=== PATIENT | female | born 1945 | race Caucasian/White ===

== ENCOUNTER → 2018-03-12 | Outpatient (CLI) | payer MEDICARE, OTHER ==
[~2018-03-12] MED LIST: ALPR0.254 PO; AMLO10TA6 PO; BUPR150T6 PO; CALC500T93 PO; CARV6.252 PO; CHOL400T10 PO; CHOL5000 PO; FENO160T PO; GLUC500T11 PO; IRBE300T16 PO; LEVO50TA5 PO; LIOT5TAB3 PO; MAGN100T3 PO; MULT1TAB60 PO; POTA20TA14 PO; PRED5TAB PO; SERT100T5 PO; ZINC30CA PO
[2018-03-12 12:40] LABS: BASOPHILS # (AUTO) 0.02 x10^3/uL (0-0.1); BASOPHILS % (AUTO) 0 % (0-1); EOSINOPHILS # (AUTO) 0.11 x10^3/uL (0-0.4); EOSINOPHILS % (AUTO) 2 % (1-7); LYMPHOCYTES # (AUTO) 0.75 x10^3/uL (1-3.4); LYMPHOCYTES % (AUTO) 10 % (22-44); MD NO; MEAN CORPUSCULAR HEMOGLOBIN 31.1 pg (27.0-34.8); MEAN CORPUSCULAR HGB CONC 34.4 g/dL (32.4-35.8); MEAN CORPUSCULAR VOLUME 90.5 fL (80-100); MEAN PLATELET VOLUME 8.7 fL (7.4-10.4); MONOCYTES # (AUTO) 0.42 x10^3/uL (0.2-0.8); MONOCYTES % (AUTO) 6 % (2-9); NEUTROPHILS # (AUTO) 6.24 x10^3/uL (1.8-6.8); NEUTROPHILS % (AUTO) 83 % (42-75); PLATELET COUNT 175 x10^3/uL (130-400); RED BLOOD COUNT 4.41 x10^6/uL (3.82-5.3); RED CELL DISTRIBUTION WIDTH 13.5 % (9.6-15.2)
[2018-03-12 12:46] LABS: ANION GAP 5 mmol/L (5-15); CHLORIDE 108 mmol/L (98-107)
[2018-03-12 12:50] LABS: ALANINE AMINOTRANSFERASE 29 U/L (12-78); ALKALINE PHOSPHATASE 36 U/L (45-117); BILIRUBIN,TOTAL 0.9 mg/dL (0.2-1.0); CREATININE 1.59 mg/dL (0.55-1.02); TOTAL PROTEIN 6.9 g/dL (6.4-8.2)
== END | disposition home or self-care (01) ==
LOC: STAR 11:29
PROVIDERS: ATTEND Surgery
DX: Z01.818 Encounter for other preprocedural examination (principal); I51.7 Cardiomegaly
CPT/HCPCS: 36415; 80053; 85025; 93005

== ENCOUNTER 2018-03-18 10:10 | Inpatient (IN) | payer MEDICARE, OTHER ==
[~2018-03-18] VITALS: Ht 162.6 cm; Wt 86.7 kg
[~2018-03-18 10:10] MED LIST changes: +BUPIVACAINE/PF-EPI 0.5% 1:200K ONE
[2018-03-18] MEDS ORDERED: LACTATED RINGERS 1,000 ML IV SCH (10:54)
[2018-03-18] MEDS ORDERED: GABAPENTIN 300 MG CAPSULE PO ONE (11:00)
[2018-03-18] MEDS ORDERED: ONDANSETRON ODT 8 MG PO ONE (11:00)
[2018-03-18] MEDS ORDERED: ACETAMINOPHEN 500 MG TABLET PO ONE (11:00)
[2018-03-18] MEDS ORDERED: MIDAZOLAM 1 MG/ML, 2ML ONE (11:48)
[2018-03-18] MEDS ORDERED: DEXAMETHASONE 4 MG/ML, 1ML ONE ×2 (11:49)
[2018-03-18] MEDS ORDERED: PROPOFOL 10 MG/ML, 20ML ONE (11:49)
[2018-03-18] MEDS ORDERED: LIDOCAINE-MPF 2% ,5ML ONE (11:49)
[2018-03-18] MEDS ORDERED: FENTANYL PF 100 MCG/2ML ONE ×2 (11:49→15:38)
[2018-03-18] MEDS ORDERED: SUCCINYLCHOLINE 20 MG/ML, 10ML ONE (11:51)
[2018-03-18] MEDS ORDERED: OXYcodone 5 MG/5 ML ORAL.SOL UDC PO PRN (13:30)
[2018-03-18] MEDS ORDERED: ALBUTEROL SULFATE 2.5 MG/3 ML NPPB PRN (13:30)
[2018-03-18] MEDS ORDERED: LABETALOL 5MG/ML, 20ML IV PRN (13:30)
[2018-03-18] MEDS ORDERED: MIDAZOLAM 1 MG/ML, 2ML IV PRN (13:30)
[2018-03-18] MEDS ORDERED: METOPROLOL 1 MG/ML, 5ML IV PRN (13:30)
[2018-03-18] MEDS ORDERED: MEPERIDINE/PF 25MG/0.5ML IVPush PRN (13:30)
[2018-03-18] MEDS ORDERED: FENTANYL PF 100 MCG/2ML IV PRN (13:30)
[2018-03-18] MEDS ORDERED: hydrALAzine 20 MG/ML, 1ML IV PRN ×2 (13:30→19:00)
[2018-03-18] MEDS ORDERED: EPHEDRINE 50 MG/ML, 1ML ONE (13:38)
[2018-03-18] MEDS ORDERED: PHENYLEPHRINE 10 MG/ML ONE (13:38)
[2018-03-18] MEDS ORDERED: hydrALAzine 20 MG/ML, 1ML ONE (13:38)
[2018-03-18] MEDS ORDERED: CEFAZOLIN 1,000 MG ONE (13:38)
[2018-03-18] MEDS ORDERED: ROCURONIUM 10 MG/ML,10ML ONE (13:38)
[2018-03-18] MEDS ORDERED: MEPERIDINE/PF 50 MG/ML ONE (14:26)
[2018-03-18] MEDS ORDERED: THROMBIN 20,000 UNIT VIAL TP ONE (15:48)
[2018-03-18] MEDS ORDERED: HYDROCORTISONE 100 MG INJ. ONE (15:54)
[2018-03-18] MEDS ORDERED: HYDROmorphone 2 MG/ML, 1ML ONE (16:45)
[2018-03-18] MEDS ORDERED: OXYcodone 5 MG/5 ML ORAL.SOL UDC ONE (16:45)
[2018-03-18] MEDS: HYDROmorphone 1 MG/ML, 1ML IV PRN ×3 (16:48→17:32)
[2018-03-18] MEDS: FLUDROCORTISONE 0.1 MG TABLET PO SCH (18:51)
[2018-03-18] MEDS ORDERED: ACETAMINOPHEN 650 MG SUPP PR PRN (19:00)
[2018-03-18] MEDS ORDERED: ONDANSETRON 2MG/ML, 2ML IV PRN (19:00)
[2018-03-18] MEDS: HEPARIN 5,000 UNITS/ML, 1ML SQ SCH (19:46)
[2018-03-18] MEDS: ACETAMINOPHEN 500 MG TABLET PO SCH (19:46)
[2018-03-18] MEDS: HYDROCORTISONE 100 MG INJ. IV SCH (19:46)
[2018-03-18 19:48] VITALS: BP 105/61
[2018-03-18 19:53] VITALS: BP 105/61
[2018-03-18] MEDS: POTASSIUM CHLORIDE 20 MEQ in D5%-0.45% NACL 1,000 ML IV SCH (20:22)
[2018-03-19] VITALS (7 sets, daily range): BP systolic 89–111; BP diastolic 46–56
[2018-03-19] MEDS ORDERED: SODIUM CHLORIDE 0.9%, 500ML IVBOLUS ONE (01:00)
[2018-03-19] MEDS: ACETAMINOPHEN 500 MG TABLET PO SCH ×4 (01:21→18:27)
[2018-03-19] MEDS: HEPARIN 5,000 UNITS/ML, 1ML SQ SCH ×3 (03:30→18:27)
[2018-03-19] MEDS: HYDROCORTISONE 100 MG INJ. IV SCH ×3 (04:31→20:17)
[2018-03-19] MEDS ORDERED: SODIUM CHLORIDE 0.9% 1,000ML IVBOLUS ONE ×3 (05:00→16:30)
[2018-03-19 05:23] LABS: BASOPHILS # (AUTO) 0.02 x10^3/uL (0-0.1); BASOPHILS % (AUTO) 0 % (0-1); EOSINOPHILS % (AUTO) 0 % (1-7); LYMPHOCYTES # (AUTO) 0.22 x10^3/uL (1-3.4); LYMPHOCYTES % (AUTO) 2 % (22-44); MD NO; MEAN CORPUSCULAR HEMOGLOBIN 30.5 pg (27.0-34.8); MEAN CORPUSCULAR HGB CONC 33.5 g/dL (32.4-35.8); MEAN CORPUSCULAR VOLUME 91.2 fL (80-100); MEAN PLATELET VOLUME 8.9 fL (7.4-10.4); MONOCYTES # (AUTO) 0.58 x10^3/uL (0.2-0.8); MONOCYTES % (AUTO) 5 % (2-9); NEUTROPHILS # (AUTO) 11.49 x10^3/uL (1.8-6.8); NEUTROPHILS % (AUTO) 93 % (42-75); PLATELET COUNT 154 x10^3/uL (130-400); RED BLOOD COUNT 3.47 x10^6/uL (3.82-5.3); RED CELL DISTRIBUTION WIDTH 13.4 % (9.6-15.2)
[2018-03-19] MEDS: CARVEDILOL 6.25 MG TABLET PO SCH ×3 (05:54→17:02)
[2018-03-19] MEDS: LEVOTHYROXINE 50 MCG TABLET PO SCH (06:09)
[2018-03-19] MEDS: POTASSIUM CHLORIDE 20 MEQ in D5%-0.45% NACL 1,000 ML IV SCH (07:00)
[2018-03-19] MEDS: CALCIUM CARBONATE 500 MG TAB.CHEW PO SCH (08:08)
[2018-03-19] MEDS: POTASSIUM CHLORIDE 20 MEQ TAB.ER.PRT PO SCH (08:08)
[2018-03-19] MEDS: MULTIVITAMIN 1 TABLET PO SCH (08:09)
[2018-03-19] MEDS: CHOLECALCIFEROL 400 UNITS TABLET PO SCH (08:10)
[2018-03-19] MEDS: FENOFIBRATE 145 MG TABLET PO SCH (08:10)
[2018-03-19] MEDS: MAGNESIUM OXIDE 400 MG TABLET PO SCH (08:10)
[2018-03-19] MEDS: SERTRALINE 100MG TABLET PO SCH (08:10)
[2018-03-19] MEDS: FLUDROCORTISONE 0.1 MG TABLET PO SCH (08:10)
[2018-03-19] MEDS: BUPROPION SR 150 MG TABLET PO SCH (08:11)
[2018-03-19] MEDS: LIOTHYRONINE 5 MCG TABLET PO SCH (08:11)
[2018-03-19] MEDS: AMLODIPINE 10 MG TAB PO SCH (08:13)
[2018-03-19] MEDS: IRBESARTAN 300 MG TABLET PO SCH (08:13)
[2018-03-19 08:56] LABS: ANION GAP 5 mmol/L (5-15); CALCIUM 8.3 mg/dL (8.5-10.1); CHLORIDE 113 mmol/L (98-107); CREATININE 2.38 mg/dL (0.55-1.02)
[2018-03-19] MEDS: D5%-0.9% NACL+KCL 20MEQ 1,000 ML IV SCH (09:48)
[2018-03-19 16:05] LABS: BASOPHILS % (AUTO) 0 % (0-1); EOSINOPHILS % (AUTO) 0 % (1-7); LYMPHOCYTES # (AUTO) 0.22 x10^3/uL (1-3.4); LYMPHOCYTES % (AUTO) 2 % (22-44); MD NO; MEAN CORPUSCULAR HEMOGLOBIN 30.2 pg (27.0-34.8); MEAN CORPUSCULAR HGB CONC 33.2 g/dL (32.4-35.8); MEAN CORPUSCULAR VOLUME 91.1 fL (80-100); MEAN PLATELET VOLUME 8.5 fL (7.4-10.4); MONOCYTES # (AUTO) 0.48 x10^3/uL (0.2-0.8); MONOCYTES % (AUTO) 5 % (2-9); NEUTROPHILS # (AUTO) 9.75 x10^3/uL (1.8-6.8); NEUTROPHILS % (AUTO) 93 % (42-75); PLATELET COUNT 136 x10^3/uL (130-400); RED BLOOD COUNT 3.29 x10^6/uL (3.82-5.3); RED CELL DISTRIBUTION WIDTH 13.5 % (9.6-15.2)
[2018-03-19] MEDS ORDERED: HYDROCORTISONE 100 MG INJ. IVPush ONE (16:30)
[2018-03-20] MEDS: D5%-0.9% NACL+KCL 20MEQ 1,000 ML IV SCH ×3 (01:47→15:35)
[2018-03-20] MEDS: ACETAMINOPHEN 500 MG TABLET PO SCH ×4 (01:47→23:44)
[2018-03-20 03:57] VITALS: BP 106/55
[2018-03-20] MEDS: HYDROCORTISONE 100 MG INJ. IV SCH ×3 (04:16→23:44)
[2018-03-20] MEDS: HEPARIN 5,000 UNITS/ML, 1ML SQ SCH ×3 (04:17→18:02)
[2018-03-20] MEDS: LEVOTHYROXINE 50 MCG TABLET PO SCH (05:51)
[2018-03-20] MEDS: CARVEDILOL 6.25 MG TABLET PO SCH ×2 (05:51→18:02)
[2018-03-20 07:40] VITALS: BP 108/58
[2018-03-20 07:42] LABS: ALANINE AMINOTRANSFERASE 18 U/L (12-78); ALBUMIN 2.5 g/dL (3.4-5.0); ANION GAP 4 mmol/L (5-15); CALCIUM 7.9 mg/dL (8.5-10.1); CHLORIDE 117 mmol/L (98-107); CREATININE 1.77 mg/dL (0.55-1.02)
[2018-03-20 07:45] LABS: ALKALINE PHOSPHATASE 24 U/L (45-117); BILIRUBIN,TOTAL 0.5 mg/dL (0.2-1.0); TOTAL PROTEIN 5.1 g/dL (6.4-8.2)
[2018-03-20 07:52] LABS: MEAN CORPUSCULAR HEMOGLOBIN 30.5 pg (27.0-34.8); MEAN CORPUSCULAR HGB CONC 33.4 g/dL (32.4-35.8); MEAN CORPUSCULAR VOLUME 91.2 fL (80-100); MEAN PLATELET VOLUME 9.1 fL (7.4-10.4); PLATELET COUNT 128 x10^3/uL (130-400); RED BLOOD COUNT 3.11 x10^6/uL (3.82-5.3); RED CELL DISTRIBUTION WIDTH 13.9 % (9.6-15.2)
[2018-03-20] MEDS: CHOLECALCIFEROL 400 UNITS TABLET PO SCH (07:57)
[2018-03-20] MEDS: MULTIVITAMIN 1 TABLET PO SCH (07:57)
[2018-03-20] MEDS: POTASSIUM CHLORIDE 20 MEQ TAB.ER.PRT PO SCH (07:57)
[2018-03-20] MEDS: SERTRALINE 100MG TABLET PO SCH (07:57)
[2018-03-20] MEDS: BUPROPION SR 150 MG TABLET PO SCH (07:57)
[2018-03-20] MEDS: MAGNESIUM OXIDE 400 MG TABLET PO SCH (07:57)
[2018-03-20] MEDS: CALCIUM CARBONATE 500 MG TAB.CHEW PO SCH (07:57)
[2018-03-20] MEDS: AMLODIPINE 10 MG TAB PO SCH (07:59)
[2018-03-20] MEDS: IRBESARTAN 300 MG TABLET PO SCH (07:59)
[2018-03-20] MEDS: FLUDROCORTISONE 0.1 MG TABLET PO SCH (08:02)
[2018-03-20] MEDS: LIOTHYRONINE 5 MCG TABLET PO SCH (08:02)
[2018-03-20] MEDS: FENOFIBRATE 145 MG TABLET PO SCH (08:02)
[2018-03-20 08:50] LABS: BASOPHILS % (AUTO) 0 % (0-1); EOSINOPHILS % (AUTO) 0 % (1-7); LYMPHOCYTES % (AUTO) 2 % (22-44); MD SCAN; MONOCYTES # (AUTO) 0.33 x10^3/uL (0.2-0.8); MONOCYTES % (AUTO) 3 % (2-9); NEUTROPHILS % (AUTO) 95 % (42-75)
[2018-03-20 13:37] VITALS: BP 128/73
[2018-03-20 20:39] VITALS: BP 119/74
[2018-03-20 22:21] LABS: BASOPHILS # (AUTO) 0.03 x10^3/uL (0-0.1); BASOPHILS % (AUTO) 0 % (0-1); EOSINOPHILS # (AUTO) 0.01 x10^3/uL (0-0.4); EOSINOPHILS % (AUTO) 0 % (1-7); LYMPHOCYTES # (AUTO) 0.34 x10^3/uL (1-3.4); LYMPHOCYTES % (AUTO) 4 % (22-44); MD NO; MEAN CORPUSCULAR HEMOGLOBIN 31.1 pg (27.0-34.8); MEAN CORPUSCULAR HGB CONC 34.2 g/dL (32.4-35.8); MEAN CORPUSCULAR VOLUME 90.8 fL (80-100); MEAN PLATELET VOLUME 9.3 fL (7.4-10.4); MONOCYTES # (AUTO) 0.25 x10^3/uL (0.2-0.8); MONOCYTES % (AUTO) 3 % (2-9); NEUTROPHILS # (AUTO) 8.64 x10^3/uL (1.8-6.8); NEUTROPHILS % (AUTO) 93 % (42-75); PLATELET COUNT 130 x10^3/uL (130-400); RED BLOOD COUNT 3.07 x10^6/uL (3.82-5.3); RED CELL DISTRIBUTION WIDTH 13.6 % (9.6-15.2)
[2018-03-20 22:31] LABS: ANION GAP 6 mmol/L (5-15); CALCIUM 8.3 mg/dL (8.5-10.1); CHLORIDE 118 mmol/L (98-107); CREATININE 1.63 mg/dL (0.55-1.02)
[2018-03-21] MEDS: D5%-0.9% NACL+KCL 20MEQ 1,000 ML IV SCH ×4 (01:00→18:16)
[2018-03-21] MEDS: ACETAMINOPHEN 500 MG TABLET PO SCH ×4 (02:00→20:00)
[2018-03-21 02:43] LABS: ANION GAP 8 mmol/L (5-15); CALCIUM 8.1 mg/dL (8.5-10.1); CHLORIDE 120 mmol/L (98-107); CREATININE 1.55 mg/dL (0.55-1.02)
[2018-03-21 02:59] LABS: MEAN CORPUSCULAR HEMOGLOBIN 30.5 pg (27.0-34.8); MEAN CORPUSCULAR HGB CONC 33.4 g/dL (32.4-35.8); MEAN CORPUSCULAR VOLUME 91.2 fL (80-100); MEAN PLATELET VOLUME 10.1 fL (7.4-10.4); PLATELET COUNT 120 x10^3/uL (130-400); RED BLOOD COUNT 2.97 x10^6/uL (3.82-5.3); RED CELL DISTRIBUTION WIDTH 13.4 % (9.6-15.2)
[2018-03-21] MEDS: HEPARIN 5,000 UNITS/ML, 1ML SQ SCH ×3 (03:00→18:07)
[2018-03-21 03:04] LABS: BASOPHILS # (AUTO) 0.02 x10^3/uL (0-0.1); BASOPHILS % (AUTO) 0 % (0-1); EOSINOPHILS # (AUTO) 0.01 x10^3/uL (0-0.4); EOSINOPHILS % (AUTO) 0 % (1-7); LYMPHOCYTES # (AUTO) 0.25 x10^3/uL (1-3.4); LYMPHOCYTES % (AUTO) 3 % (22-44); MD SCAN; MONOCYTES # (AUTO) 0.32 x10^3/uL (0.2-0.8); MONOCYTES % (AUTO) 3 % (2-9); NEUTROPHILS # (AUTO) 8.82 x10^3/uL (1.8-6.8); NEUTROPHILS % (AUTO) 94 % (42-75)
[2018-03-21] MEDS: CARVEDILOL 6.25 MG TABLET PO SCH ×2 (05:52→17:23)
[2018-03-21] MEDS: LEVOTHYROXINE 50 MCG TABLET PO SCH (05:52)
[2018-03-21 07:10] VITALS: BP 144/75
[2018-03-21] MEDS ORDERED: FUROSEMIDE 20 MG/2 ML IV ONE (08:00)
[2018-03-21] MEDS: HYDROCORTISONE 100 MG INJ. IV SCH ×2 (09:00→17:23)
[2018-03-21] MEDS: POTASSIUM CHLORIDE 20 MEQ TAB.ER.PRT PO SCH (09:01)
[2018-03-21] MEDS: AMLODIPINE 10 MG TAB PO SCH (09:01)
[2018-03-21] MEDS: CALCIUM CARBONATE 500 MG TAB.CHEW PO SCH (09:01)
[2018-03-21] MEDS: CHOLECALCIFEROL 400 UNITS TABLET PO SCH (09:01)
[2018-03-21] MEDS: BUPROPION SR 150 MG TABLET PO SCH (09:01)
[2018-03-21] MEDS: MULTIVITAMIN 1 TABLET PO SCH (09:02)
[2018-03-21] MEDS: SERTRALINE 100MG TABLET PO SCH (09:02)
[2018-03-21] MEDS: MAGNESIUM OXIDE 400 MG TABLET PO SCH (09:02)
[2018-03-21] MEDS: LIOTHYRONINE 5 MCG TABLET PO SCH (09:12)
[2018-03-21] MEDS: FENOFIBRATE 145 MG TABLET PO SCH (09:12)
[2018-03-21] MEDS: IRBESARTAN 300 MG TABLET PO SCH (09:13)
[2018-03-21] MEDS: FLUDROCORTISONE 0.1 MG TABLET PO SCH (10:41)
[2018-03-21 13:12] VITALS: BP 135/72
[2018-03-21 18:32] VITALS: BP 135/68
[2018-03-22] MEDS: ACETAMINOPHEN 500 MG TABLET PO SCH ×4 (02:23→21:05)
[2018-03-22] MEDS: HEPARIN 5,000 UNITS/ML, 1ML SQ SCH ×3 (02:23→18:06)
[2018-03-22 02:33] VITALS: BP 148/71
[2018-03-22] MEDS: D5%-0.9% NACL+KCL 20MEQ 1,000 ML IV SCH ×3 (04:23→21:06)
[2018-03-22 04:55] LABS: BASOPHILS % (AUTO) 0 % (0-1); EOSINOPHILS # (AUTO) 0.02 x10^3/uL (0-0.4); EOSINOPHILS % (AUTO) 0 % (1-7); LYMPHOCYTES # (AUTO) 0.46 x10^3/uL (1-3.4); LYMPHOCYTES % (AUTO) 6 % (22-44); MD NO; MEAN CORPUSCULAR HEMOGLOBIN 31.2 pg (27.0-34.8); MEAN CORPUSCULAR HGB CONC 34.7 g/dL (32.4-35.8); MEAN CORPUSCULAR VOLUME 89.8 fL (80-100); MEAN PLATELET VOLUME 10.2 fL (7.4-10.4); MONOCYTES # (AUTO) 0.25 x10^3/uL (0.2-0.8); MONOCYTES % (AUTO) 3 % (2-9); NEUTROPHILS % (AUTO) 90 % (42-75); PLATELET COUNT 123 x10^3/uL (130-400); RED BLOOD COUNT 2.82 x10^6/uL (3.82-5.3); RED CELL DISTRIBUTION WIDTH 13.1 % (9.6-15.2)
[2018-03-22 05:01] LABS: ANION GAP 7 mmol/L (5-15); CALCIUM 8.4 mg/dL (8.5-10.1); CHLORIDE 118 mmol/L (98-107); CREATININE 1.19 mg/dL (0.55-1.02)
[2018-03-22] MEDS: CARVEDILOL 6.25 MG TABLET PO SCH ×2 (06:47→17:37)
[2018-03-22] MEDS: LEVOTHYROXINE 50 MCG TABLET PO SCH (06:48)
[2018-03-22 07:35] VITALS: BP 136/66
[2018-03-22] MEDS: BUPROPION SR 150 MG TABLET PO SCH (08:20)
[2018-03-22] MEDS: LIOTHYRONINE 5 MCG TABLET PO SCH (08:20)
[2018-03-22] MEDS: MULTIVITAMIN 1 TABLET PO SCH (08:21)
[2018-03-22] MEDS: MAGNESIUM OXIDE 400 MG TABLET PO SCH (08:21)
[2018-03-22] MEDS: FENOFIBRATE 145 MG TABLET PO SCH (08:21)
[2018-03-22] MEDS: FLUDROCORTISONE 0.1 MG TABLET PO SCH (08:21)
[2018-03-22] MEDS: SERTRALINE 100MG TABLET PO SCH (08:21)
[2018-03-22] MEDS: AMLODIPINE 10 MG TAB PO SCH (08:21)
[2018-03-22] MEDS: IRBESARTAN 300 MG TABLET PO SCH (08:22)
[2018-03-22] MEDS: CALCIUM CARBONATE 500 MG TAB.CHEW PO SCH (08:22)
[2018-03-22] MEDS: POTASSIUM CHLORIDE 20 MEQ TAB.ER.PRT PO SCH (08:22)
[2018-03-22] MEDS: CHOLECALCIFEROL 400 UNITS TABLET PO SCH (08:22)
[2018-03-22] MEDS: ACETAMINOPHEN 325 MG TABLET PO PRN (11:12)
[2018-03-22 13:33] VITALS: BP 132/69
[2018-03-22 19:41] VITALS: BP 148/77
[2018-03-23 03:21] VITALS: BP 149/74
[2018-03-23] MEDS: ACETAMINOPHEN 500 MG TABLET PO SCH ×4 (03:22→17:44)
[2018-03-23] MEDS: HEPARIN 5,000 UNITS/ML, 1ML SQ SCH ×3 (03:23→18:09)
[2018-03-23 05:51] LABS: BASOPHILS # (AUTO) 0.01 x10^3/uL (0-0.1); BASOPHILS % (AUTO) 0 % (0-1); EOSINOPHILS # (AUTO) 0.05 x10^3/uL (0-0.4); EOSINOPHILS % (AUTO) 1 % (1-7); LYMPHOCYTES # (AUTO) 0.35 x10^3/uL (1-3.4); LYMPHOCYTES % (AUTO) 6 % (22-44); MD NO; MEAN CORPUSCULAR HEMOGLOBIN 30.6 pg (27.0-34.8); MEAN CORPUSCULAR HGB CONC 34.4 g/dL (32.4-35.8); MEAN CORPUSCULAR VOLUME 88.9 fL (80-100); MEAN PLATELET VOLUME 9.1 fL (7.4-10.4); MONOCYTES # (AUTO) 0.35 x10^3/uL (0.2-0.8); MONOCYTES % (AUTO) 6 % (2-9); NEUTROPHILS # (AUTO) 5.15 x10^3/uL (1.8-6.8); NEUTROPHILS % (AUTO) 87 % (42-75); PLATELET COUNT 160 x10^3/uL (130-400); RED BLOOD COUNT 2.94 x10^6/uL (3.82-5.3); RED CELL DISTRIBUTION WIDTH 13.1 % (9.6-15.2)
[2018-03-23 05:53] LABS: ANION GAP 8 mmol/L (5-15); CHLORIDE 118 mmol/L (98-107); CREATININE 1.17 mg/dL (0.55-1.02)
[2018-03-23] MEDS: CARVEDILOL 6.25 MG TABLET PO SCH ×2 (06:14→17:44)
[2018-03-23] MEDS: LEVOTHYROXINE 50 MCG TABLET PO SCH (06:14)
[2018-03-23] MEDS: D5%-0.9% NACL+KCL 20MEQ 1,000 ML IV SCH (06:14)
[2018-03-23 07:44] VITALS: BP 148/76
[2018-03-23] MEDS: CALCIUM CARBONATE 500 MG TAB.CHEW PO SCH (08:33)
[2018-03-23] MEDS: CHOLECALCIFEROL 400 UNITS TABLET PO SCH (08:33)
[2018-03-23] MEDS: FLUDROCORTISONE 0.1 MG TABLET PO SCH (08:34)
[2018-03-23] MEDS: POTASSIUM CHLORIDE 20 MEQ TAB.ER.PRT PO SCH (08:34)
[2018-03-23] MEDS: MULTIVITAMIN 1 TABLET PO SCH (08:34)
[2018-03-23] MEDS: LIOTHYRONINE 5 MCG TABLET PO SCH (08:34)
[2018-03-23] MEDS: MAGNESIUM OXIDE 400 MG TABLET PO SCH (08:34)
[2018-03-23] MEDS: FENOFIBRATE 145 MG TABLET PO SCH (08:34)
[2018-03-23] MEDS: BUPROPION SR 150 MG TABLET PO SCH (08:34)
[2018-03-23] MEDS: AMLODIPINE 10 MG TAB PO SCH (08:34)
[2018-03-23] MEDS: IRBESARTAN 300 MG TABLET PO SCH (08:34)
[2018-03-23] MEDS: SERTRALINE 100MG TABLET PO SCH (08:34)
[2018-03-23] MEDS: ACETAMINOPHEN 325 MG TABLET PO PRN (09:35)
[2018-03-23] MEDS: SIMETHICONE 80 MG CHEW TAB PO PRN ×2 (11:56→20:22)
[2018-03-23 13:59] VITALS: BP 136/80
[2018-03-23 19:49] VITALS: BP 109/71
[2018-03-23] MEDS: OXYcodone IR 5MG TABLET PO PRN (20:21)
[2018-03-23] MEDS: DOCUSATE 100 MG CAPSULE PO SCH (20:21)
[2018-03-24] MEDS: ACETAMINOPHEN 500 MG TABLET PO SCH ×4 (00:18→18:29)
[2018-03-24] MEDS: OXYcodone IR 5MG TABLET PO PRN ×2 (00:19→08:59)
[2018-03-24 01:30] VITALS: BP 95/55
[2018-03-24] MEDS: HEPARIN 5,000 UNITS/ML, 1ML SQ SCH ×3 (03:14→20:30)
[2018-03-24] MEDS ORDERED: LACTATED RINGERS 1,000 ML IV SCH (04:30)
[2018-03-24] MEDS ORDERED: SODIUM CHLORIDE 0.9%, 500ML IVBOLUS ONE ×2 (04:30→13:30)
[2018-03-24 06:07] LABS: MEAN CORPUSCULAR HEMOGLOBIN 30.5 pg (27.0-34.8); MEAN CORPUSCULAR HGB CONC 34.2 g/dL (32.4-35.8); MEAN CORPUSCULAR VOLUME 89.2 fL (80-100); MEAN PLATELET VOLUME 9.6 fL (7.4-10.4); PLATELET COUNT 198 x10^3/uL (130-400); RED BLOOD COUNT 3.49 x10^6/uL (3.82-5.3); RED CELL DISTRIBUTION WIDTH 13.4 % (9.6-15.2)
[2018-03-24 06:13] LABS: ANION GAP 10 mmol/L (5-15); CALCIUM 9.1 mg/dL (8.5-10.1); CHLORIDE 120 mmol/L (98-107); CREATININE 2.41 mg/dL (0.55-1.02)
[2018-03-24 06:34] LABS: MD YES
[2018-03-24 06:41] LABS: BAND#(MANUAL) 2.46 x10^3/uL; BANDS%(MANUAL) 20 % (0-7); LYMPH#(MANUAL) 0.25 x10^3/uL (1-3.4); LYMPHS% (MANUAL) 2 % (22-44); METAMYELOCYTES# (MANUAL) 0.12 x10^3/uL (0-0); METAMYELOCYTES% (MANUAL) 1 % (0-1); MONOS#(MANUAL) 0.25 x10^3/uL (0.3-2.7); MONOS% (MANUAL) 2 % (2-9); NRBC % (MANUAL) 2 % (0-1); SEG#(MANUAL) 9.23 x10^3/uL (1.8-6.8); SEGS% (MANUAL) 75 % (42-75)
[2018-03-24 06:42] LABS: <RBC MORPHOLOGY> NORMAL
[2018-03-24 06:43] LABS: <PLATELET ESTIMATE> ADEQUATE; LARGE PLATELETS 1+; PMNS WITH VACUOLES 1+
[2018-03-24 07:00] VITALS: BP 98/62
[2018-03-24] MEDS: LEVOTHYROXINE 50 MCG TABLET PO SCH (07:28)
[2018-03-24] MEDS: CARVEDILOL 6.25 MG TABLET PO SCH ×2 (07:28→18:29)
[2018-03-24] MEDS ORDERED: OXYcodone 5 MG/5 ML ORAL.SOL UDC ONE (08:57)
[2018-03-24] MEDS: AMLODIPINE 10 MG TAB PO SCH (09:00)
[2018-03-24] MEDS: IRBESARTAN 300 MG TABLET PO SCH (09:00)
[2018-03-24] MEDS: CALCIUM CARBONATE 500 MG TAB.CHEW PO SCH (09:01)
[2018-03-24] MEDS: SERTRALINE 100MG TABLET PO SCH (09:01)
[2018-03-24] MEDS: MULTIVITAMIN 1 TABLET PO SCH (09:01)
[2018-03-24] MEDS: BUPROPION SR 150 MG TABLET PO SCH (09:02)
[2018-03-24] MEDS: FLUDROCORTISONE 0.1 MG TABLET PO SCH (09:02)
[2018-03-24] MEDS: MAGNESIUM OXIDE 400 MG TABLET PO SCH (09:02)
[2018-03-24] MEDS: DOCUSATE 100 MG CAPSULE PO SCH ×2 (09:02→20:30)
[2018-03-24] MEDS: LIOTHYRONINE 5 MCG TABLET PO SCH (09:02)
[2018-03-24] MEDS: POTASSIUM CHLORIDE 20 MEQ TAB.ER.PRT PO SCH (09:02)
[2018-03-24] MEDS: FENOFIBRATE 145 MG TABLET PO SCH (09:04)
[2018-03-24] MEDS: CHOLECALCIFEROL 400 UNITS TABLET PO SCH (09:06)
[2018-03-24 13:57] VITALS: BP 80/52
[2018-03-24] MEDS: IBUPROFEN 200 MG TABLET PO PRN (17:27)
[2018-03-24 18:23] VITALS: BP 90/57
[2018-03-24 19:30] VITALS: BP 115/66
[2018-03-24] MEDS: LACTATED RINGERS 1,000 ML IV SCH (20:31)
[2018-03-25] MEDS: ACETAMINOPHEN 500 MG TABLET PO SCH ×4 (00:01→18:00)
[2018-03-25 02:30] VITALS: BP 91/48
[2018-03-25] MEDS: IBUPROFEN 200 MG TABLET PO PRN (04:18)
[2018-03-25] MEDS: HEPARIN 5,000 UNITS/ML, 1ML SQ SCH ×3 (04:18→19:30)
[2018-03-25] MEDS: LACTATED RINGERS 1,000 ML IV SCH ×2 (04:20→15:39)
[2018-03-25] MEDS: CARVEDILOL 6.25 MG TABLET PO SCH ×2 (05:27→18:00)
[2018-03-25] MEDS: LEVOTHYROXINE 50 MCG TABLET PO SCH (05:27)
[2018-03-25 05:28] LABS: MEAN CORPUSCULAR HEMOGLOBIN 31.1 pg (27.0-34.8); MEAN CORPUSCULAR HGB CONC 34.6 g/dL (32.4-35.8); MEAN CORPUSCULAR VOLUME 89.7 fL (80-100); MEAN PLATELET VOLUME 9.9 fL (7.4-10.4); PLATELET COUNT 199 x10^3/uL (130-400); RED CELL DISTRIBUTION WIDTH 13.8 % (9.6-15.2)
[2018-03-25 05:29] LABS: ANION GAP 10 mmol/L (5-15); CHLORIDE 121 mmol/L (98-107); CREATININE 3.24 mg/dL (0.55-1.02)
[2018-03-25] MEDS ORDERED: SODIUM CHLORIDE 0.9% 1,000ML IVBOLUS ONE (05:30)
[2018-03-25 05:47] LABS: MD YES
[2018-03-25 05:49] LABS: BAND#(MANUAL) 1.55 x10^3/uL; BANDS%(MANUAL) 17 % (0-7); LYMPH#(MANUAL) 0.46 x10^3/uL (1-3.4); LYMPHS% (MANUAL) 5 % (22-44); MONOS#(MANUAL) 0.27 x10^3/uL (0.3-2.7); MONOS% (MANUAL) 3 % (2-9); SEG#(MANUAL) 6.83 x10^3/uL (1.8-6.8); SEGS% (MANUAL) 75 % (42-75)
[2018-03-25 05:50] LABS: <PLATELET ESTIMATE> ADEQUATE; <RBC MORPHOLOGY> NORMAL; PMNS WITH VACUOLES 1+
[2018-03-25 05:51] LABS: <PLT MORPHOLOGY> NORMAL PLT MORPH
[2018-03-25 07:33] VITALS: BP 120/57
[2018-03-25] MEDS: HYDROCORTISONE 100 MG INJ. IVPush SCH ×3 (08:14→23:30)
[2018-03-25] MEDS: AMLODIPINE 10 MG TAB PO SCH (08:24)
[2018-03-25] MEDS: LIOTHYRONINE 5 MCG TABLET PO SCH (08:24)
[2018-03-25] MEDS: DOCUSATE 100 MG CAPSULE PO SCH ×2 (08:24→20:28)
[2018-03-25] MEDS: POTASSIUM CHLORIDE 20 MEQ TAB.ER.PRT PO SCH (08:24)
[2018-03-25] MEDS: IRBESARTAN 300 MG TABLET PO SCH (08:24)
[2018-03-25] MEDS: FLUDROCORTISONE 0.1 MG TABLET PO SCH (08:24)
[2018-03-25] MEDS: CALCIUM CARBONATE 500 MG TAB.CHEW PO SCH (08:25)
[2018-03-25] MEDS: FENOFIBRATE 145 MG TABLET PO SCH (08:25)
[2018-03-25] MEDS: SERTRALINE 100MG TABLET PO SCH (08:25)
[2018-03-25] MEDS: BUPROPION SR 150 MG TABLET PO SCH (08:25)
[2018-03-25] MEDS: MAGNESIUM OXIDE 400 MG TABLET PO SCH (08:25)
[2018-03-25] MEDS: CHOLECALCIFEROL 400 UNITS TABLET PO SCH (08:25)
[2018-03-25] MEDS: MULTIVITAMIN 1 TABLET PO SCH (08:25)
[2018-03-25 12:16] VITALS: BP 108/46
[2018-03-25 20:10] VITALS: BP 118/61
[2018-03-25] MEDS ORDERED: FENTANYL PF 250 MCG/5ML ONE (21:19)
[2018-03-25] MEDS ORDERED: MIDAZOLAM 1 MG/ML, 2ML ONE (21:19)
[2018-03-25] MEDS ORDERED: BUPIVACAINE/PF 0.5% ONE (21:24)
[2018-03-25] MEDS ORDERED: EPINEPHRINE 1 MG/ML, 1ML ONE (21:25)
[2018-03-25] MEDS ORDERED: DEXTROSE 50%, 50ML SYRINGE IVPush ONE (21:30)
[2018-03-25] MEDS ORDERED: LACTATED RINGERS 1,000 ML IVBOLUS ONE (21:30)
[2018-03-25] MEDS ORDERED: ROCURONIUM 10 MG/ML,10ML ONE (21:41)
[2018-03-25] MEDS ORDERED: CEFOTETAN 2 GM ONE (21:41)
[2018-03-25 23:46] LABS: ANION GAP 9 mmol/L (5-15); CALCIUM 6.9 mg/dL (8.5-10.1); CHLORIDE 129 mmol/L (98-107); CREATININE 2.25 mg/dL (0.55-1.02)
[2018-03-25 23:47] LABS: ALANINE AMINOTRANSFERASE 136 U/L (12-78); ALBUMIN 1.3 g/dL (3.4-5.0)
[2018-03-25 23:49] LABS: ALKALINE PHOSPHATASE 39 U/L (45-117); BILIRUBIN,TOTAL 0.4 mg/dL (0.2-1.0); TOTAL PROTEIN 3.5 g/dL (6.4-8.2)
[2018-03-25 23:52] LABS: MEAN CORPUSCULAR HGB CONC 33.1 g/dL (32.4-35.8); MEAN CORPUSCULAR VOLUME 90.7 fL (80-100); MEAN PLATELET VOLUME 9.6 fL (7.4-10.4); PLATELET COUNT 184 x10^3/uL (130-400); RED BLOOD COUNT 2.43 x10^6/uL (3.82-5.3); RED CELL DISTRIBUTION WIDTH 15.2 % (9.6-15.2)
[2018-03-26 00:11] LABS: INTERNATIONAL NORMALIZED RATIO 1.65 (0.93-1.1); PROTHROMBIN TIME 16.8 Seconds (9.6-11.5)
[2018-03-26 00:18] LABS: MD YES
[2018-03-26 00:20] LABS: <RBC MORPHOLOGY> NORMAL; BAND#(MANUAL) 1.01 x10^3/uL; BANDS%(MANUAL) 11 % (0-7); LYMPH#(MANUAL) 0.55 x10^3/uL (1-3.4); LYMPHS% (MANUAL) 6 % (22-44); METAMYELOCYTES# (MANUAL) 0.09 x10^3/uL (0-0); METAMYELOCYTES% (MANUAL) 1 % (0-1); MONOS#(MANUAL) 0.09 x10^3/uL (0.3-2.7); MONOS% (MANUAL) 1 % (2-9); SEG#(MANUAL) 7.45 x10^3/uL (1.8-6.8); SEGS% (MANUAL) 81 % (42-75)
[2018-03-26 00:21] LABS: <PLATELET ESTIMATE> ADEQUATE; <PLT MORPHOLOGY> NORMAL PLT MORPH
[2018-03-26] MEDS ORDERED: HYDROCORTISONE 100 MG INJ. IVPush SCH ×2 (00:30→07:30)
[2018-03-26 01:01] LABS: MEAN CORPUSCULAR HGB CONC 33.7 g/dL (32.4-35.8); MEAN CORPUSCULAR VOLUME 88.9 fL (80-100); PLATELET COUNT 171 x10^3/uL (130-400); RED BLOOD COUNT 3.44 x10^6/uL (3.82-5.3); RED CELL DISTRIBUTION WIDTH 14.6 % (9.6-15.2)
[2018-03-26] MEDS: PIPERACILLIN/TAZO/PMX 3.375GM 50 ML IV SCH ×2 (01:04→08:30)
[2018-03-26] MEDS: LACTATED RINGERS 1,000 ML IV SCH (01:04)
[2018-03-26 01:12] LABS: INTERNATIONAL NORMALIZED RATIO 1.68 (0.93-1.1); PROTHROMBIN TIME 17.1 Seconds (9.6-11.5)
[2018-03-26 01:16] LABS: ALANINE AMINOTRANSFERASE 168 U/L (12-78); ALBUMIN 1.5 g/dL (3.4-5.0); ANION GAP 9 mmol/L (5-15); CALCIUM 8.6 mg/dL (8.5-10.1); CHLORIDE 132 mmol/L (98-107); CREATININE 2.25 mg/dL (0.55-1.02)
[2018-03-26 01:18] LABS: MD YES
[2018-03-26 01:19] LABS: ALKALINE PHOSPHATASE 47 U/L (45-117); BILIRUBIN,TOTAL 0.8 mg/dL (0.2-1.0); TOTAL PROTEIN 3.7 g/dL (6.4-8.2)
[2018-03-26 01:22] LABS: <PLATELET ESTIMATE> ADEQUATE; <RBC MORPHOLOGY> NORMAL; BAND#(MANUAL) 1.45 x10^3/uL; BANDS%(MANUAL) 12 % (0-7); LYMPH#(MANUAL) 0.97 x10^3/uL (1-3.4); LYMPHS% (MANUAL) 8 % (22-44); METAMYELOCYTES# (MANUAL) 0.12 x10^3/uL (0-0); METAMYELOCYTES% (MANUAL) 1 % (0-1); MONOS#(MANUAL) 0.12 x10^3/uL (0.3-2.7); MONOS% (MANUAL) 1 % (2-9); SEG#(MANUAL) 9.44 x10^3/uL (1.8-6.8); SEGS% (MANUAL) 78 % (42-75)
[2018-03-26 01:23] LABS: LARGE PLATELETS 1+
[2018-03-26] MEDS: PHENYLEPHRINE 20 MG in SODIUM CHLORIDE 0.9% 248 ML IV PRN ×2 (01:59→07:45)
[2018-03-26] MEDS: NOREPINEPHRINE 4 MG in SODIUM CHLORIDE 0.9% 246 ML IV PRN ×3 (02:35→14:02)
[2018-03-26] MEDS: SODIUM CHLORIDE 0.45% 1,000 ML IV SCH ×3 (03:07→22:21)
[2018-03-26] MEDS: HEPARIN 5,000 UNITS/ML, 1ML SQ SCH ×3 (03:07→19:39)
[2018-03-26] MEDS ORDERED: PROPOFOL 0 ML IV ONE (03:56)
[2018-03-26] MEDS: PROPOFOL 100 ML IV PRN ×2 (03:58→18:32)
[2018-03-26 04:00] VITALS: BP 113/61
[2018-03-26 04:48] LABS: ALANINE AMINOTRANSFERASE 189 U/L (12-78); ALBUMIN 1.6 g/dL (3.4-5.0); ANION GAP 10 mmol/L (5-15); CALCIUM 8.7 mg/dL (8.5-10.1); CHLORIDE 129 mmol/L (98-107); CREATININE 2.39 mg/dL (0.55-1.02); MEAN CORPUSCULAR HEMOGLOBIN 29.4 pg (27.0-34.8); MEAN CORPUSCULAR HGB CONC 33.4 g/dL (32.4-35.8); MEAN CORPUSCULAR VOLUME 88.2 fL (80-100); MEAN PLATELET VOLUME 10.4 fL (7.4-10.4); PLATELET COUNT 262 x10^3/uL (130-400); RED BLOOD COUNT 3.97 x10^6/uL (3.82-5.3); RED CELL DISTRIBUTION WIDTH 15.2 % (9.6-15.2)
[2018-03-26 04:50] LABS: ALKALINE PHOSPHATASE 57 U/L (45-117); BILIRUBIN,TOTAL 1.6 mg/dL (0.2-1.0); TOTAL PROTEIN 4.1 g/dL (6.4-8.2)
[2018-03-26] MEDS: ACETAMINOPHEN 500 MG TABLET PO SCH ×4 (05:29→16:52)
[2018-03-26] MEDS: CARVEDILOL 6.25 MG TABLET PO SCH ×2 (05:29→16:52)
[2018-03-26] MEDS: LEVOTHYROXINE 50 MCG TABLET PO SCH (05:29)
[2018-03-26 05:41] LABS: MD YES
[2018-03-26 05:43] LABS: <PLATELET ESTIMATE> ADEQUATE; <RBC MORPHOLOGY> NORMAL; BAND#(MANUAL) 1.37 x10^3/uL; BANDS%(MANUAL) 5 % (0-7); LYMPH#(MANUAL) 0.27 x10^3/uL (1-3.4); LYMPHS% (MANUAL) 1 % (22-44); METAMYELOCYTES# (MANUAL) 0.27 x10^3/uL (0-0); METAMYELOCYTES% (MANUAL) 1 % (0-1); MONOS#(MANUAL) 1.37 x10^3/uL (0.3-2.7); MONOS% (MANUAL) 5 % (2-9); MYELOCYTES# (MANUAL) 0.27 x10^3/uL (0-0); MYELOCYTES% (MANUAL) 1 % (0-0); NRBC % (MANUAL) 1 % (0-1); SEG#(MANUAL) 23.84 x10^3/uL (1.8-6.8); SEGS% (MANUAL) 87 % (42-75)
[2018-03-26 05:44] LABS: LARGE PLATELETS 1+
[2018-03-26] MEDS: AMLODIPINE 10 MG TAB PO SCH (07:41)
[2018-03-26] MEDS: IRBESARTAN 300 MG TABLET PO SCH (07:41)
[2018-03-26] MEDS ORDERED: VASOPRESSIN 100 UNIT in SODIUM CHLORIDE 0.9% 495 ML IV PRN (08:30)
[2018-03-26] MEDS: HYDROCORTISONE 100 MG INJ. IVPush SCH ×2 (08:30→17:01)
[2018-03-26] MEDS: DOCUSATE 100 MG CAPSULE PO SCH ×2 (09:00→20:34)
[2018-03-26] MEDS: MULTIVITAMIN 1 TABLET PO SCH (09:00)
[2018-03-26] MEDS: MAGNESIUM OXIDE 400 MG TABLET PO SCH (09:00)
[2018-03-26] MEDS: SERTRALINE 100MG TABLET PO SCH (09:00)
[2018-03-26] MEDS: FLUDROCORTISONE 0.1 MG TABLET PO SCH (09:00)
[2018-03-26] MEDS: CHOLECALCIFEROL 400 UNITS TABLET PO SCH (09:00)
[2018-03-26] MEDS: FENOFIBRATE 145 MG TABLET PO SCH (09:00)
[2018-03-26] MEDS: POTASSIUM CHLORIDE 20 MEQ TAB.ER.PRT PO SCH (09:00)
[2018-03-26] MEDS: BUPROPION SR 150 MG TABLET PO SCH (09:00)
[2018-03-26] MEDS: LIOTHYRONINE 5 MCG TABLET PO SCH (09:00)
[2018-03-26] MEDS: CALCIUM CARBONATE 500 MG TAB.CHEW PO SCH (09:00)
[2018-03-26] MEDS: MEROPENEM 1 GM in SODIUM CHLORIDE 0.9% 100 ML IV SCH ×2 (09:43→20:33)
[2018-03-26] MEDS: MICAFUNGIN 100 MG in SODIUM CHLORIDE 0.9% 100 ML IV SCH (10:20)
[2018-03-26 12:16] LABS: CULTURE INDICATED? YES; MICROSCOPIC INDICATED
[2018-03-26] MEDS: FENTANYL PF 100 MCG/2ML IVPush PRN ×3 (14:02→20:09)
[2018-03-26] MEDS ORDERED: PHARMACY MAY ADJ FOR RENAL FX MC SCH (16:00)
[2018-03-26] MEDS ORDERED: LIDOCAINE-MPF 1%, 2ML ENDO PRN (16:00)
[2018-03-26] MEDS ORDERED: NOREPINEPHRINE 16 MG in SODIUM CHLORIDE 0.9% 234 ML IV PRN (20:00)
[2018-03-27] MEDS: HYDROCORTISONE 100 MG INJ. IVPush SCH ×3 (01:05→16:32)
[2018-03-27] MEDS: HEPARIN 5,000 UNITS/ML, 1ML SQ SCH ×3 (03:32→19:30)
[2018-03-27] MEDS ORDERED: SODIUM BICARB 8.4%, 50ML SYRINGE ONE (03:47)
[2018-03-27 03:48] LABS: ANION GAP 15 mmol/L (5-15); CALCIUM 8.1 mg/dL (8.5-10.1); CHLORIDE 124 mmol/L (98-107); CREATININE 3.36 mg/dL (0.55-1.02); MEAN CORPUSCULAR HEMOGLOBIN 30.1 pg (27.0-34.8); MEAN CORPUSCULAR HGB CONC 34.1 g/dL (32.4-35.8); MEAN CORPUSCULAR VOLUME 88.4 fL (80-100); PLATELET COUNT 225 x10^3/uL (130-400); RED BLOOD COUNT 3.37 x10^6/uL (3.82-5.3); RED CELL DISTRIBUTION WIDTH 16.3 % (9.6-15.2)
[2018-03-27 03:51] LABS: MD YES
[2018-03-27 04:00] VITALS: BP 121/41
[2018-03-27] MEDS ORDERED: SODIUM BICARB 8.4%, 50ML SYRINGE IVPush ONE (04:00)
[2018-03-27 04:17] LABS: BAND#(MANUAL) 0.77 x10^3/uL; BANDS%(MANUAL) 3 % (0-7); LYMPH#(MANUAL) 1.29 x10^3/uL (1-3.4); LYMPHS% (MANUAL) 5 % (22-44); METAMYELOCYTES# (MANUAL) 0.52 x10^3/uL (0-0); METAMYELOCYTES% (MANUAL) 2 % (0-1); SEG#(MANUAL) 23.22 x10^3/uL (1.8-6.8); SEGS% (MANUAL) 90 % (42-75)
[2018-03-27 04:18] LABS: <PLATELET ESTIMATE> ADEQUATE; ANISOCYTOSIS 1+; LARGE PLATELETS 1+
[2018-03-27] MEDS: FENTANYL PF 100 MCG/2ML IVPush PRN ×2 (05:41→12:09)
[2018-03-27] MEDS: ACETAMINOPHEN 500 MG TABLET PO SCH ×4 (05:52→17:00)
[2018-03-27] MEDS: CARVEDILOL 6.25 MG TABLET PO SCH ×2 (05:52→16:59)
[2018-03-27] MEDS: SODIUM CHLORIDE 0.45% 1,000 ML IV SCH (06:49)
[2018-03-27] MEDS: MAGNESIUM OXIDE 400 MG TABLET PO SCH (09:00)
[2018-03-27] MEDS: LIOTHYRONINE 5 MCG TABLET PO SCH (09:00)
[2018-03-27] MEDS: CALCIUM CARBONATE 500 MG TAB.CHEW PO SCH (09:00)
[2018-03-27] MEDS: POTASSIUM CHLORIDE 20 MEQ TAB.ER.PRT PO SCH (09:00)
[2018-03-27] MEDS: MULTIVITAMIN 1 TABLET PO SCH (09:00)
[2018-03-27] MEDS: SERTRALINE 100MG TABLET PO SCH (09:00)
[2018-03-27] MEDS: CHOLECALCIFEROL 400 UNITS TABLET PO SCH (09:00)
[2018-03-27] MEDS: DOCUSATE 100 MG CAPSULE PO SCH ×2 (09:00→21:00)
[2018-03-27] MEDS: FLUDROCORTISONE 0.1 MG TABLET PO SCH (09:00)
[2018-03-27] MEDS: FENOFIBRATE 145 MG TABLET PO SCH (09:00)
[2018-03-27] MEDS: AMLODIPINE 10 MG TAB PO SCH (09:00)
[2018-03-27] MEDS ORDERED: INSULIN REGULAR, HUMAN 100 UNITS/ML, 3ML MEDIUM DOSE SS SQ-INSULIN SCH (09:00)
[2018-03-27] MEDS: BUPROPION SR 150 MG TABLET PO SCH (09:00)
[2018-03-27] MEDS: IRBESARTAN 300 MG TABLET PO SCH (09:00)
[2018-03-27] MEDS: PANTOPRAZOLE 40 MG IV IV SCH (10:46)
[2018-03-27] MEDS: SODIUM BICARBONATE 8.4% 100 MEQ in DEXTROSE 5% 1,000 ML IV SCH ×2 (10:47→21:00)
[2018-03-27] MEDS: LEVOTHYROXINE 100 MCG INJ IVPush SCH (10:47)
[2018-03-27] MEDS: MEROPENEM 1 GM in SODIUM CHLORIDE 0.9% 100 ML IV SCH ×2 (10:47→20:48)
[2018-03-27] MEDS: INSULIN REGULAR, HUMAN 100 UNIT/ML 3ML VIAL LOW DOSE SS SQ-INSULIN SCH ×3 (10:59→22:05)
[2018-03-27] MEDS: MICAFUNGIN 100 MG in SODIUM CHLORIDE 0.9% 100 ML IV SCH (11:01)
[2018-03-27] MEDS ORDERED: CALCIUM CHLORIDE 10%, 10ML SYR ONE (17:02)
[2018-03-27] MEDS ORDERED: SUGAMMADEX 200 MG/2 ML IVPush ONE ×3 (17:02)
[2018-03-27] MEDS ORDERED: ALBUMIN HUMAN 5% 500 ML ONE (17:02)
[2018-03-27] MEDS ORDERED: MIDAZOLAM 1 MG/ML, 2ML ONE (18:17)
[2018-03-27] MEDS ORDERED: PROPOFOL 50 ML ONE (18:47)
[2018-03-27] MEDS ORDERED: EPINEPHRINE 1 MG/ML, 1ML ONE (19:50)
[2018-03-27] MEDS ORDERED: ROCURONIUM 10MG/ML,5ML ONE (19:50)
[2018-03-27] MEDS ORDERED: TPN PER PHARMACY MC PRN (22:00)
[2018-03-28] MEDS: HYDROCORTISONE 100 MG INJ. IVPush SCH ×4 (00:25→23:30)
[2018-03-28] MEDS: PROPOFOL 100 ML IV PRN (00:30)
[2018-03-28] MEDS: INSULIN REGULAR, HUMAN 100 UNIT/ML 3ML VIAL LOW DOSE SS SQ-INSULIN SCH ×2 (03:06→09:00)
[2018-03-28] MEDS: HEPARIN 5,000 UNITS/ML, 1ML SQ SCH ×3 (03:32→20:00)
[2018-03-28 04:00] VITALS: BP 111/60
[2018-03-28 04:10] LABS: MEAN CORPUSCULAR HEMOGLOBIN 29.3 pg (27.0-34.8); MEAN CORPUSCULAR HGB CONC 33.6 g/dL (32.4-35.8); MEAN PLATELET VOLUME 9.7 fL (7.4-10.4); PLATELET COUNT 143 x10^3/uL (130-400); RED BLOOD COUNT 2.84 x10^6/uL (3.82-5.3); RED CELL DISTRIBUTION WIDTH 15.4 % (9.6-15.2)
[2018-03-28 04:15] LABS: ANION GAP 10 mmol/L (5-15); CALCIUM 7.7 mg/dL (8.5-10.1); CHLORIDE 123 mmol/L (98-107)
[2018-03-28 04:40] LABS: MD YES
[2018-03-28 04:43] LABS: ANISOCYTOSIS 1+; BAND#(MANUAL) 0.28 x10^3/uL; BANDS%(MANUAL) 2 % (0-7); LYMPH#(MANUAL) 0.42 x10^3/uL (1-3.4); LYMPHS% (MANUAL) 3 % (22-44); METAMYELOCYTES# (MANUAL) 0.42 x10^3/uL (0-0); METAMYELOCYTES% (MANUAL) 3 % (0-1); MONOS#(MANUAL) 0.28 x10^3/uL (0.3-2.7); MONOS% (MANUAL) 2 % (2-9); MYELOCYTES# (MANUAL) 0.14 x10^3/uL (0-0); MYELOCYTES% (MANUAL) 1 % (0-0); SEG#(MANUAL) 12.37 x10^3/uL (1.8-6.8); SEGS% (MANUAL) 89 % (42-75)
[2018-03-28 04:44] LABS: <PLATELET ESTIMATE> ADEQUATE; LARGE PLATELETS 1+; OVALOCYTES 1+; POLYCHROMASIA 1+
[2018-03-28] MEDS: CARVEDILOL 6.25 MG TABLET PO SCH ×2 (06:00→17:16)
[2018-03-28] MEDS: ACETAMINOPHEN 500 MG TABLET PO SCH ×5 (06:00→23:31)
[2018-03-28] MEDS ORDERED: HYDROCORTISONE 100 MG INJ. IVPush SCH (07:32)
[2018-03-28] MEDS: SERTRALINE 100MG TABLET PO SCH (09:00)
[2018-03-28] MEDS: FENOFIBRATE 145 MG TABLET PO SCH (09:00)
[2018-03-28] MEDS: LIOTHYRONINE 5 MCG TABLET PO SCH (09:00)
[2018-03-28] MEDS: CHOLECALCIFEROL 400 UNITS TABLET PO SCH (09:00)
[2018-03-28] MEDS: BUPROPION SR 150 MG TABLET PO SCH (09:00)
[2018-03-28] MEDS: MAGNESIUM OXIDE 400 MG TABLET PO SCH (09:00)
[2018-03-28] MEDS: CALCIUM CARBONATE 500 MG TAB.CHEW PO SCH (09:00)
[2018-03-28] MEDS: FLUDROCORTISONE 0.1 MG TABLET PO SCH (09:00)
[2018-03-28] MEDS: MULTIVITAMIN 1 TABLET PO SCH (09:00)
[2018-03-28] MEDS: AMLODIPINE 10 MG TAB PO SCH (09:00)
[2018-03-28] MEDS: DOCUSATE 100 MG CAPSULE PO SCH ×2 (09:00→21:00)
[2018-03-28] MEDS: LEVOTHYROXINE 100 MCG INJ IVPush SCH (09:34)
[2018-03-28] MEDS: PANTOPRAZOLE 40 MG IV IV SCH (09:34)
[2018-03-28] MEDS: MICAFUNGIN 100 MG in SODIUM CHLORIDE 0.9% 100 ML IV SCH (09:34)
[2018-03-28] MEDS: SODIUM BICARBONATE 8.4% 50 MEQ in DEXTROSE 5% 1,000 ML IV SCH ×2 (09:35→20:14)
[2018-03-28] MEDS: MEROPENEM 1 GM in SODIUM CHLORIDE 0.9% 100 ML IV SCH ×2 (09:35→20:54)
[2018-03-28] MEDS: FILTER, DISP 1.2 MICRON FOR TPN/PVN IV PRN (16:53)
[2018-03-28] MEDS ORDERED: FAT EMUL IV SCH (17:00)
[2018-03-28] MEDS ORDERED: DEXTROSE 70% IV SCH (17:00)
[2018-03-28] MEDS ORDERED: AMINO ACID 10% IV SCH (17:00)
[2018-03-28] MEDS ORDERED: DEXTROSE 50%, 50ML SYRINGE IVPush PRN (17:00)
[2018-03-28] MEDS ORDERED: DEXTROSE 10% 500 ML IV PRN (17:00)
[2018-03-28] MEDS ORDERED: [UNRECOGNIZED DRUG - OTHER] IV SCH (17:00)
[2018-03-28] MEDS ORDERED: SMOF TPN IV SCH (17:00)
[2018-03-28] MEDS ORDERED: PHENYLEPHRINE 10 MG/ML ONE (18:30)
[2018-03-28] MEDS: [UNRECOGNIZED DRUG - OTHER] SQ-INSULIN SCH (20:53)
[2018-03-29 03:26] LABS: MEAN CORPUSCULAR VOLUME 88.1 fL (80-100); MEAN PLATELET VOLUME 10.2 fL (7.4-10.4); PLATELET COUNT 158 x10^3/uL (130-400); RED BLOOD COUNT 3.05 x10^6/uL (3.82-5.3); RED CELL DISTRIBUTION WIDTH 15.1 % (9.6-15.2)
[2018-03-29 03:30] LABS: ALANINE AMINOTRANSFERASE 59 U/L (12-78); ALBUMIN 1.4 g/dL (3.4-5.0); ANION GAP 10 mmol/L (5-15); CALCIUM 7.5 mg/dL (8.5-10.1); CHLORIDE 118 mmol/L (98-107); CREATININE 2.58 mg/dL (0.55-1.02); MD YES; TRIGLYCERIDES 204 mg/dL (50-200)
[2018-03-29] MEDS: [UNRECOGNIZED DRUG - OTHER] SQ-INSULIN SCH ×2 (03:31→09:22)
[2018-03-29 03:32] LABS: ALKALINE PHOSPHATASE 46 U/L (45-117); BILIRUBIN,TOTAL 0.7 mg/dL (0.2-1.0); TOTAL PROTEIN 4.4 g/dL (6.4-8.2)
[2018-03-29] MEDS: HEPARIN 5,000 UNITS/ML, 1ML SQ SCH ×3 (03:33→19:29)
[2018-03-29 03:41] LABS: ANISOCYTOSIS 1+; BAND#(MANUAL) 0.54 x10^3/uL; BANDS%(MANUAL) 4 % (0-7); LYMPH#(MANUAL) 0.95 x10^3/uL (1-3.4); LYMPHS% (MANUAL) 7 % (22-44); METAMYELOCYTES# (MANUAL) 0.14 x10^3/uL (0-0); METAMYELOCYTES% (MANUAL) 1 % (0-1); NRBC % (MANUAL) 1 % (0-1); POLYCHROMASIA 1+; SEG#(MANUAL) 11.88 x10^3/uL (1.8-6.8); SEGS% (MANUAL) 88 % (42-75)
[2018-03-29 03:42] LABS: <PLATELET ESTIMATE> ADEQUATE; LARGE PLATELETS 1+
[2018-03-29 04:00] VITALS: BP 141/77
[2018-03-29] MEDS: FENTANYL PF 100 MCG/2ML IVPush PRN (04:21)
[2018-03-29] MEDS: CARVEDILOL 6.25 MG TABLET PO SCH ×2 (06:00→17:55)
[2018-03-29] MEDS: ACETAMINOPHEN 500 MG TABLET PO SCH ×4 (06:00→23:29)
[2018-03-29] MEDS: SODIUM BICARBONATE 8.4% 50 MEQ in DEXTROSE 5% 1,000 ML IV SCH ×2 (06:13→16:00)
[2018-03-29] MEDS: AMLODIPINE 10 MG TAB PO SCH (09:00)
[2018-03-29] MEDS: DOCUSATE 100 MG CAPSULE PO SCH ×2 (09:18→20:49)
[2018-03-29] MEDS: LEVOTHYROXINE 100 MCG INJ IVPush SCH (09:18)
[2018-03-29] MEDS: PANTOPRAZOLE 40 MG IV IV SCH (09:18)
[2018-03-29] MEDS: MEROPENEM 1 GM in SODIUM CHLORIDE 0.9% 100 ML IV SCH ×2 (09:18→20:49)
[2018-03-29] MEDS: HYDROCORTISONE 100 MG INJ. IVPush SCH ×3 (09:18→23:19)
[2018-03-29] MEDS: CHOLECALCIFEROL 400 UNITS TABLET PO SCH (09:19)
[2018-03-29] MEDS: BUPROPION SR 150 MG TABLET PO SCH (09:19)
[2018-03-29] MEDS: MAGNESIUM OXIDE 400 MG TABLET PO SCH (09:19)
[2018-03-29] MEDS: MULTIVITAMIN 1 TABLET PO SCH (09:19)
[2018-03-29] MEDS: LIOTHYRONINE 5 MCG TABLET PO SCH (09:19)
[2018-03-29] MEDS: FENOFIBRATE 145 MG TABLET PO SCH (09:19)
[2018-03-29] MEDS: FLUDROCORTISONE 0.1 MG TABLET PO SCH (09:19)
[2018-03-29] MEDS: CALCIUM CARBONATE 500 MG TAB.CHEW PO SCH (09:19)
[2018-03-29] MEDS: SERTRALINE 100MG TABLET PO SCH (09:20)
[2018-03-29] MEDS: MICAFUNGIN 100 MG in SODIUM CHLORIDE 0.9% 100 ML IV SCH (10:48)
[2018-03-29] MEDS ORDERED: INSULIN REGULAR, HUMAN 100 UNITS/ML, 3ML HIGH DOSE SS SQ-INSULIN ONE (11:50)
[2018-03-29] MEDS ORDERED: FAT EMUL IV SCH (17:00)
[2018-03-29] MEDS ORDERED: DEXTROSE 70% IV SCH (17:00)
[2018-03-29] MEDS ORDERED: [UNRECOGNIZED DRUG - OTHER] IV SCH (17:00)
[2018-03-29] MEDS ORDERED: SMOF TPN IV SCH (17:00)
[2018-03-29] MEDS ORDERED: AMINO ACID 10% IV SCH (17:00)
[2018-03-29] MEDS: INSULIN REGULAR, HUMAN 100 UNITS/ML, 3ML HIGH DOSE SS SQ-INSULIN SCH ×2 (17:55→23:15)
[2018-03-29] MEDS: FILTER, DISP 1.2 MICRON FOR TPN/PVN IV PRN (17:55)
[2018-03-30] MEDS: SODIUM BICARBONATE 8.4% 50 MEQ in DEXTROSE 5% 1,000 ML IV SCH ×2 (02:14→12:51)
[2018-03-30 03:24] LABS: MEAN CORPUSCULAR HEMOGLOBIN 29.6 pg (27.0-34.8); MEAN CORPUSCULAR HGB CONC 33.8 g/dL (32.4-35.8); MEAN CORPUSCULAR VOLUME 87.5 fL (80-100); MEAN PLATELET VOLUME 10.6 fL (7.4-10.4); PLATELET COUNT 190 x10^3/uL (130-400); RED BLOOD COUNT 2.77 x10^6/uL (3.82-5.3); RED CELL DISTRIBUTION WIDTH 15.1 % (9.6-15.2)
[2018-03-30] MEDS: HEPARIN 5,000 UNITS/ML, 1ML SQ SCH ×3 (03:26→19:26)
[2018-03-30 03:30] LABS: ANION GAP 8 mmol/L (5-15); CALCIUM 7.5 mg/dL (8.5-10.1); CHLORIDE 113 mmol/L (98-107); CREATININE 1.79 mg/dL (0.55-1.02)
[2018-03-30 03:53] LABS: MD YES
[2018-03-30 03:56] LABS: ANISOCYTOSIS 1+; BAND#(MANUAL) 1.15 x10^3/uL; BANDS%(MANUAL) 8 % (0-7); LYMPH#(MANUAL) 0.43 x10^3/uL (1-3.4); LYMPHS% (MANUAL) 3 % (22-44); MONOS#(MANUAL) 0.29 x10^3/uL (0.3-2.7); MONOS% (MANUAL) 2 % (2-9); MYELOCYTES# (MANUAL) 0.14 x10^3/uL (0-0); MYELOCYTES% (MANUAL) 1 % (0-0); POLYCHROMASIA 1+; SEG#(MANUAL) 12.38 x10^3/uL (1.8-6.8); SEGS% (MANUAL) 86 % (42-75)
[2018-03-30 03:57] LABS: <PLATELET ESTIMATE> ADEQUATE; LARGE PLATELETS 1+
[2018-03-30 04:18] VITALS: BP 118/62
[2018-03-30] MEDS: INSULIN REGULAR, HUMAN 100 UNITS/ML, 3ML HIGH DOSE SS SQ-INSULIN SCH ×4 (04:50→23:00)
[2018-03-30] MEDS: ACETAMINOPHEN 500 MG TABLET PO SCH ×2 (06:00→12:00)
[2018-03-30] MEDS: CARVEDILOL 6.25 MG TABLET PO SCH ×2 (06:26→18:44)
[2018-03-30] MEDS: HYDROCORTISONE 100 MG INJ. IVPush SCH ×3 (07:55→23:20)
[2018-03-30] MEDS: MEROPENEM 1 GM in SODIUM CHLORIDE 0.9% 100 ML IV SCH ×2 (08:44→20:38)
[2018-03-30] MEDS: CHOLECALCIFEROL 400 UNITS TABLET PO SCH (08:45)
[2018-03-30] MEDS: MICAFUNGIN 100 MG in SODIUM CHLORIDE 0.9% 100 ML IV SCH (08:45)
[2018-03-30] MEDS: LEVOTHYROXINE 100 MCG INJ IVPush SCH (08:45)
[2018-03-30] MEDS: LIOTHYRONINE 5 MCG TABLET PO SCH (08:46)
[2018-03-30] MEDS: FENOFIBRATE 145 MG TABLET PO SCH (08:46)
[2018-03-30] MEDS: CALCIUM CARBONATE 500 MG TAB.CHEW PO SCH (08:46)
[2018-03-30] MEDS: FLUDROCORTISONE 0.1 MG TABLET PO SCH (08:46)
[2018-03-30] MEDS: MAGNESIUM OXIDE 400 MG TABLET PO SCH (08:47)
[2018-03-30] MEDS: MULTIVITAMIN 1 TABLET PO SCH (08:47)
[2018-03-30] MEDS: BUPROPION SR 150 MG TABLET PO SCH (08:47)
[2018-03-30] MEDS: SERTRALINE 100MG TABLET PO SCH (08:47)
[2018-03-30] MEDS: AMLODIPINE 10 MG TAB PO SCH (08:58)
[2018-03-30] MEDS: DOCUSATE 100 MG CAPSULE PO SCH ×3 (09:00→20:38)
[2018-03-30] MEDS: PANTOPRAZOLE 40 MG IV IV SCH (09:12)
[2018-03-30] MEDS: FILTER, DISP 1.2 MICRON FOR TPN/PVN IV PRN (16:45)
[2018-03-30] MEDS ORDERED: FAT EMUL IV SCH (17:00)
[2018-03-30] MEDS ORDERED: DEXTROSE 70% IV SCH (17:00)
[2018-03-30] MEDS ORDERED: AMINO ACID 10% IV SCH (17:00)
[2018-03-30] MEDS ORDERED: [UNRECOGNIZED DRUG - OTHER] IV SCH (17:00)
[2018-03-30] MEDS ORDERED: SMOF TPN IV SCH (17:00)
[2018-03-31 04:00] VITALS: BP 132/66
[2018-03-31] MEDS: HEPARIN 5,000 UNITS/ML, 1ML SQ SCH ×3 (05:17→21:16)
[2018-03-31] MEDS: INSULIN REGULAR, HUMAN 100 UNITS/ML, 3ML HIGH DOSE SS SQ-INSULIN SCH ×4 (05:21→23:00)
[2018-03-31] MEDS: CARVEDILOL 6.25 MG TABLET PO SCH (06:00)
[2018-03-31 06:09] LABS: MEAN CORPUSCULAR HGB CONC 34.2 g/dL (32.4-35.8); MEAN CORPUSCULAR VOLUME 87.6 fL (80-100); MEAN PLATELET VOLUME 11.7 fL (7.4-10.4); PLATELET COUNT 284 x10^3/uL (130-400); RED BLOOD COUNT 3.23 x10^6/uL (3.82-5.3); RED CELL DISTRIBUTION WIDTH 14.7 % (9.6-15.2)
[2018-03-31 06:19] LABS: ANION GAP 10 mmol/L (5-15); CALCIUM 7.8 mg/dL (8.5-10.1); CHLORIDE 113 mmol/L (98-107); CREATININE 1.41 mg/dL (0.55-1.02)
[2018-03-31 06:30] LABS: MD YES
[2018-03-31 06:31] LABS: BAND#(MANUAL) 0.62 x10^3/uL; BANDS%(MANUAL) 3 % (0-7); LYMPH#(MANUAL) 0.62 x10^3/uL (1-3.4); LYMPHS% (MANUAL) 3 % (22-44); METAMYELOCYTES# (MANUAL) 0.21 x10^3/uL (0-0); METAMYELOCYTES% (MANUAL) 1 % (0-1); MONOS#(MANUAL) 0.41 x10^3/uL (0.3-2.7); MONOS% (MANUAL) 2 % (2-9); MYELOCYTES# (MANUAL) 0.21 x10^3/uL (0-0); MYELOCYTES% (MANUAL) 1 % (0-0); SEG#(MANUAL) 18.54 x10^3/uL (1.8-6.8); SEGS% (MANUAL) 90 % (42-75)
[2018-03-31 06:32] LABS: <PLATELET ESTIMATE> ADEQUATE; ANISOCYTOSIS 1+; LARGE PLATELETS 1+; POLYCHROMASIA 1+; TOXIC GRAN 1+
[2018-03-31] MEDS: HYDROCORTISONE 100 MG INJ. IVPush SCH ×3 (07:54→23:44)
[2018-03-31] MEDS: DOCUSATE 100 MG CAPSULE PO SCH ×3 (09:00→21:16)
[2018-03-31] MEDS: PANTOPRAZOLE 40 MG IV IV SCH (09:17)
[2018-03-31] MEDS: LEVOTHYROXINE 100 MCG INJ IVPush SCH (09:17)
[2018-03-31] MEDS: SERTRALINE 100MG TABLET PO SCH (09:17)
[2018-03-31] MEDS: FLUDROCORTISONE 0.1 MG TABLET PO SCH (09:17)
[2018-03-31] MEDS: BUPROPION SR 150 MG TABLET PO SCH (09:18)
[2018-03-31] MEDS: LIOTHYRONINE 5 MCG TABLET PO SCH (09:18)
[2018-03-31] MEDS: CHOLECALCIFEROL 400 UNITS TABLET PO SCH (09:18)
[2018-03-31] MEDS: FENOFIBRATE 145 MG TABLET PO SCH (09:19)
[2018-03-31] MEDS: MULTIVITAMIN 1 TABLET PO SCH (09:19)
[2018-03-31] MEDS: MEROPENEM 1 GM in SODIUM CHLORIDE 0.9% 100 ML IV SCH ×2 (09:19→21:15)
[2018-03-31] MEDS: AMLODIPINE 10 MG TAB PO SCH (09:19)
[2018-03-31] MEDS: MAGNESIUM OXIDE 400 MG TABLET PO SCH (09:19)
[2018-03-31] MEDS: CALCIUM CARBONATE 500 MG TAB.CHEW PO SCH (09:19)
[2018-03-31] MEDS: MICAFUNGIN 100 MG in SODIUM CHLORIDE 0.9% 100 ML IV SCH (09:20)
[2018-03-31] MEDS: OXYcodone IR 5MG TABLET PO PRN (11:59)
[2018-03-31] MEDS ORDERED: SMOF TPN IV SCH (17:00)
[2018-03-31] MEDS ORDERED: [UNRECOGNIZED DRUG - OTHER] IV SCH (17:00)
[2018-03-31] MEDS ORDERED: AMINO ACID 10% IV SCH (17:00)
[2018-03-31] MEDS ORDERED: FAT EMUL IV SCH (17:00)
[2018-03-31] MEDS ORDERED: DEXTROSE 70% IV SCH (17:00)
[2018-03-31] MEDS: FILTER, DISP 1.2 MICRON FOR TPN/PVN IV PRN (17:05)
[2018-03-31] MEDS: LINEZOLID PMX 600MG/300ML 300 ML IV SCH (17:24)
[2018-03-31] MEDS: CARVEDILOL 3.125 MG TABLET PO SCH (17:25)
[2018-04-01 04:00] VITALS: BP 136/64
[2018-04-01 04:29] LABS: MEAN CORPUSCULAR HEMOGLOBIN 30.1 pg (27.0-34.8); MEAN CORPUSCULAR VOLUME 88.3 fL (80-100); MEAN PLATELET VOLUME 10.6 fL (7.4-10.4); PLATELET COUNT 288 x10^3/uL (130-400); RED BLOOD COUNT 3.12 x10^6/uL (3.82-5.3)
[2018-04-01 04:41] LABS: CHLORIDE 111 mmol/L (98-107)
[2018-04-01 04:48] LABS: ALANINE AMINOTRANSFERASE 21 U/L (12-78); ALBUMIN 1.2 g/dL (3.4-5.0); ALKALINE PHOSPHATASE 59 U/L (45-117); ANION GAP 8 mmol/L (5-15); BILIRUBIN,TOTAL 0.5 mg/dL (0.2-1.0); CREATININE 1.27 mg/dL (0.55-1.02); PREALBUMIN 13.3 mg/dL (20.0-40.0); TOTAL PROTEIN 4.3 g/dL (6.4-8.2)
[2018-04-01] MEDS: INSULIN REGULAR, HUMAN 100 UNITS/ML, 3ML HIGH DOSE SS SQ-INSULIN SCH ×4 (05:00→23:00)
[2018-04-01 05:10] LABS: MD YES
[2018-04-01 05:12] LABS: <PLATELET ESTIMATE> ADEQUATE; ANISOCYTOSIS 1+; BAND#(MANUAL) 0.76 x10^3/uL; BANDS%(MANUAL) 4 % (0-7); LARGE PLATELETS 1+; LYMPH#(MANUAL) 0.76 x10^3/uL (1-3.4); LYMPHS% (MANUAL) 4 % (22-44); METAMYELOCYTES# (MANUAL) 0.38 x10^3/uL (0-0); METAMYELOCYTES% (MANUAL) 2 % (0-1); MONOS#(MANUAL) 0.76 x10^3/uL (0.3-2.7); MONOS% (MANUAL) 4 % (2-9); POLYCHROMASIA 1+; SEG#(MANUAL) 16.34 x10^3/uL (1.8-6.8); SEGS% (MANUAL) 86 % (42-75); TOXIC GRAN 1+
[2018-04-01] MEDS: LINEZOLID PMX 600MG/300ML 300 ML IV SCH ×2 (05:24→17:13)
[2018-04-01] MEDS: HEPARIN 5,000 UNITS/ML, 1ML SQ SCH ×3 (05:24→20:25)
[2018-04-01] MEDS: CARVEDILOL 3.125 MG TABLET PO SCH ×2 (05:24→17:14)
[2018-04-01] MEDS: DOCUSATE 100 MG CAPSULE PO SCH ×2 (08:53→20:25)
[2018-04-01] MEDS: MICAFUNGIN 100 MG in SODIUM CHLORIDE 0.9% 100 ML IV SCH (09:16)
[2018-04-01] MEDS: HYDROCORTISONE 100 MG INJ. IVPush SCH ×2 (09:16→15:53)
[2018-04-01] MEDS: MEROPENEM 1 GM in SODIUM CHLORIDE 0.9% 100 ML IV SCH ×2 (09:16→20:25)
[2018-04-01] MEDS: PANTOPRAZOLE 40 MG IV IV SCH (09:16)
[2018-04-01] MEDS: LIOTHYRONINE 5 MCG TABLET PO SCH (09:17)
[2018-04-01] MEDS: CHOLECALCIFEROL 400 UNITS TABLET PO SCH (09:17)
[2018-04-01] MEDS: CALCIUM CARBONATE 500 MG TAB.CHEW PO SCH (09:17)
[2018-04-01] MEDS: LEVOTHYROXINE 100 MCG INJ IVPush SCH (09:17)
[2018-04-01] MEDS: MAGNESIUM OXIDE 400 MG TABLET PO SCH (09:17)
[2018-04-01] MEDS: BUPROPION SR 150 MG TABLET PO SCH (09:18)
[2018-04-01] MEDS: AMLODIPINE 10 MG TAB PO SCH (09:18)
[2018-04-01] MEDS: FENOFIBRATE 145 MG TABLET PO SCH (09:18)
[2018-04-01] MEDS: SERTRALINE 100MG TABLET PO SCH (09:18)
[2018-04-01] MEDS: FLUDROCORTISONE 0.1 MG TABLET PO SCH (09:18)
[2018-04-01] MEDS: MULTIVITAMIN 1 TABLET PO SCH (09:22)
[2018-04-01] MEDS: DAKIN'S SOLUTION 1/4 STRENGTH 1,000 ML IRRIG SOLN EXT SCH (14:47)
[2018-04-01] MEDS ORDERED: AMINO ACID 10% IV SCH (17:00)
[2018-04-01] MEDS ORDERED: [UNRECOGNIZED DRUG - OTHER] IV SCH (17:00)
[2018-04-01] MEDS ORDERED: DEXTROSE 70% IV SCH (17:00)
[2018-04-01] MEDS ORDERED: FAT EMUL IV SCH (17:00)
[2018-04-01] MEDS ORDERED: SMOF TPN IV SCH (17:00)
[2018-04-01] MEDS: FILTER, DISP 1.2 MICRON FOR TPN/PVN IV PRN (17:13)
[2018-04-02] MEDS: HYDROCORTISONE 100 MG INJ. IVPush SCH ×4 (00:10→23:55)
[2018-04-02 04:00] VITALS: BP 144/63
[2018-04-02] MEDS: INSULIN REGULAR, HUMAN 100 UNITS/ML, 3ML HIGH DOSE SS SQ-INSULIN SCH ×4 (05:29→23:00)
[2018-04-02] MEDS: CARVEDILOL 3.125 MG TABLET PO SCH ×2 (05:29→17:59)
[2018-04-02] MEDS: HEPARIN 5,000 UNITS/ML, 1ML SQ SCH ×3 (05:29→20:41)
[2018-04-02 05:37] LABS: MEAN CORPUSCULAR HGB CONC 33.8 g/dL (32.4-35.8); MEAN CORPUSCULAR VOLUME 88.7 fL (80-100); MEAN PLATELET VOLUME 10.8 fL (7.4-10.4); PLATELET COUNT 370 x10^3/uL (130-400); RED BLOOD COUNT 3.25 x10^6/uL (3.82-5.3); RED CELL DISTRIBUTION WIDTH 15.1 % (9.6-15.2)
[2018-04-02 05:48] LABS: CHLORIDE 110 mmol/L (98-107)
[2018-04-02] MEDS: LINEZOLID PMX 600MG/300ML 300 ML IV SCH ×2 (05:50→17:54)
[2018-04-02 05:55] LABS: ALANINE AMINOTRANSFERASE 23 U/L (12-78); ALBUMIN 1.2 g/dL (3.4-5.0); ALKALINE PHOSPHATASE 73 U/L (45-117); ANION GAP 10 mmol/L (5-15); BILIRUBIN,TOTAL 0.5 mg/dL (0.2-1.0); CALCIUM 8.4 mg/dL (8.5-10.1); CREATININE 1.21 mg/dL (0.55-1.02); TOTAL PROTEIN 4.7 g/dL (6.4-8.2)
[2018-04-02 06:02] LABS: MD YES
[2018-04-02 06:03] LABS: BAND#(MANUAL) 0.61 x10^3/uL; BANDS%(MANUAL) 3 % (0-7); LYMPH#(MANUAL) 0.61 x10^3/uL (1-3.4); LYMPHS% (MANUAL) 3 % (22-44); METAMYELOCYTES% (MANUAL) 1 % (0-1); MONOS#(MANUAL) 0.41 x10^3/uL (0.3-2.7); MONOS% (MANUAL) 2 % (2-9); SEG#(MANUAL) 18.47 x10^3/uL (1.8-6.8); SEGS% (MANUAL) 91 % (42-75)
[2018-04-02 06:04] LABS: ANISOCYTOSIS 1+; POLYCHROMASIA 1+
[2018-04-02 06:05] LABS: <PLATELET ESTIMATE> ADEQUATE; LARGE PLATELETS 1+
[2018-04-02] MEDS: MEROPENEM 1 GM in SODIUM CHLORIDE 0.9% 100 ML IV SCH ×2 (09:45→20:42)
[2018-04-02] MEDS: FLUDROCORTISONE 0.1 MG TABLET PO SCH (09:46)
[2018-04-02] MEDS: SERTRALINE 100MG TABLET PO SCH (09:46)
[2018-04-02] MEDS: MULTIVITAMIN 1 TABLET PO SCH (09:46)
[2018-04-02] MEDS: PANTOPRAZOLE 40 MG IV IV SCH (09:46)
[2018-04-02] MEDS: CALCIUM CARBONATE 500 MG TAB.CHEW PO SCH (09:46)
[2018-04-02] MEDS: LIOTHYRONINE 5 MCG TABLET PO SCH (09:46)
[2018-04-02] MEDS: DOCUSATE 100 MG CAPSULE PO SCH ×3 (09:47→21:00)
[2018-04-02] MEDS: ACETAMINOPHEN 325 MG TABLET PO PRN (09:47)
[2018-04-02] MEDS: MAGNESIUM OXIDE 400 MG TABLET PO SCH (09:47)
[2018-04-02] MEDS: BUPROPION SR 150 MG TABLET PO SCH ×2 (09:47→12:34)
[2018-04-02] MEDS: CHOLECALCIFEROL 400 UNITS TABLET PO SCH (09:47)
[2018-04-02] MEDS: AMLODIPINE 10 MG TAB PO SCH (09:47)
[2018-04-02] MEDS: FENOFIBRATE 145 MG TABLET PO SCH (09:54)
[2018-04-02] MEDS: LEVOTHYROXINE 50 MCG TABLET PO SCH (09:54)
[2018-04-02] MEDS: MICAFUNGIN 100 MG in SODIUM CHLORIDE 0.9% 100 ML IV SCH (10:30)
[2018-04-02] MEDS: ERGOCALCIFEROL 50,000 UNIT CAPSULE PO SCH (12:34)
[2018-04-02] MEDS ORDERED: ALBUMIN HUMAN 25% 100 ML IV ONE (15:30)
[2018-04-02] MEDS: APAP/CODEINE 300/30MG TABLET PO PRN (16:15)
[2018-04-02] MEDS ORDERED: FAT EMUL IV SCH (17:00)
[2018-04-02] MEDS ORDERED: [UNRECOGNIZED DRUG - OTHER] IV SCH (17:00)
[2018-04-02] MEDS ORDERED: AMINO ACID 10% IV SCH (17:00)
[2018-04-02] MEDS ORDERED: FUROSEMIDE 40 MG/4 ML IV ONE (17:00)
[2018-04-02] MEDS ORDERED: DEXTROSE 70% IV SCH (17:00)
[2018-04-02] MEDS ORDERED: SMOF TPN IV SCH (17:00)
[2018-04-02] MEDS: DAKIN'S SOLUTION 1/4 STRENGTH 1,000 ML IRRIG SOLN EXT SCH (17:54)
[2018-04-03] MEDS: APAP/CODEINE 300/30MG TABLET PO PRN (02:54)
[2018-04-03] MEDS: HEPARIN 5,000 UNITS/ML, 1ML SQ SCH ×3 (03:42→20:39)
[2018-04-03 04:13] VITALS: BP 151/64
[2018-04-03 04:49] LABS: MEAN CORPUSCULAR HEMOGLOBIN 29.9 pg (27.0-34.8); MEAN CORPUSCULAR HGB CONC 33.5 g/dL (32.4-35.8); MEAN CORPUSCULAR VOLUME 89.1 fL (80-100); MEAN PLATELET VOLUME 10.2 fL (7.4-10.4); PLATELET COUNT 369 x10^3/uL (130-400); RED BLOOD COUNT 2.93 x10^6/uL (3.82-5.3)
[2018-04-03 04:58] LABS: ANION GAP 9 mmol/L (5-15); CALCIUM 8.4 mg/dL (8.5-10.1); CHLORIDE 107 mmol/L (98-107)
[2018-04-03 05:00] LABS: CREATININE 1.23 mg/dL (0.55-1.02)
[2018-04-03] MEDS: INSULIN REGULAR, HUMAN 100 UNITS/ML, 3ML HIGH DOSE SS SQ-INSULIN SCH ×4 (05:00→22:52)
[2018-04-03 05:47] LABS: MD YES
[2018-04-03] MEDS: LINEZOLID PMX 600MG/300ML 300 ML IV SCH (06:00)
[2018-04-03 06:06] LABS: LYMPHS% (MANUAL) 4 % (22-44); SEGS% (MANUAL) 96 % (42-75)
[2018-04-03 06:07] LABS: ANISOCYTOSIS 1+; POLYCHROMASIA 1+
[2018-04-03 06:10] LABS: <PLATELET ESTIMATE> ADEQUATE; LARGE PLATELETS 1+; TOXIC GRAN 1+
[2018-04-03] MEDS: LEVOTHYROXINE 50 MCG TABLET PO SCH (06:36)
[2018-04-03] MEDS: CARVEDILOL 3.125 MG TABLET PO SCH ×2 (06:36→17:53)
[2018-04-03] MEDS: HYDROCORTISONE 100 MG INJ. IVPush SCH ×3 (07:35→23:28)
[2018-04-03 08:14] LABS: FREE T4 (FREE THYROXINE) 0.93 ng/dL (0.76-1.46); THYROID STIMULATING HORMONE 3.04 mIU/L (0.358-3.740)
[2018-04-03] MEDS: CALCIUM CARBONATE 500 MG TAB.CHEW PO SCH (09:00)
[2018-04-03] MEDS: FLUDROCORTISONE 0.1 MG TABLET PO SCH (09:00)
[2018-04-03] MEDS: MAGNESIUM OXIDE 400 MG TABLET PO SCH (09:00)
[2018-04-03] MEDS: AMLODIPINE 10 MG TAB PO SCH (09:00)
[2018-04-03] MEDS: MULTIVITAMIN 1 TABLET PO SCH (09:00)
[2018-04-03] MEDS: SERTRALINE 100MG TABLET PO SCH (09:00)
[2018-04-03] MEDS: DAKIN'S SOLUTION 1/4 STRENGTH 1,000 ML IRRIG SOLN EXT SCH ×2 (09:00→20:20)
[2018-04-03] MEDS: BUPROPION SR 150 MG TABLET PO SCH (09:00)
[2018-04-03] MEDS: FENOFIBRATE 145 MG TABLET PO SCH (09:00)
[2018-04-03] MEDS: PANTOPRAZOLE 40 MG IV IV SCH (09:00)
[2018-04-03] MEDS: LIOTHYRONINE 5 MCG TABLET PO SCH (09:00)
[2018-04-03] MEDS: DOCUSATE 50 MG/5 ML, 10ML UDC PO SCH ×2 (09:00→20:39)
[2018-04-03] MEDS: CHOLECALCIFEROL 400 UNITS TABLET PO SCH (09:00)
[2018-04-03] MEDS: PIPERACILLIN/TAZO/PMX 3.375GM 50 ML IV SCH ×3 (11:02→22:51)
[2018-04-03] MEDS: DOXYCYCLINE 100 MG in DEXTROSE 5% 250 ML IV SCH ×2 (11:48→19:58)
[2018-04-03] MEDS: ALBUMIN HUMAN 25% 100 ML IV SCH ×2 (13:17→20:40)
[2018-04-03] MEDS: FUROSEMIDE 20 MG/2 ML IV SCH (17:53)
[2018-04-04 04:00] VITALS: BP 142/55
[2018-04-04] MEDS: HEPARIN 5,000 UNITS/ML, 1ML SQ SCH ×3 (04:38→20:40)
[2018-04-04] MEDS: ALBUMIN HUMAN 25% 100 ML IV SCH ×3 (04:38→21:25)
[2018-04-04] MEDS: PIPERACILLIN/TAZO/PMX 3.375GM 50 ML IV SCH ×4 (04:38→23:03)
[2018-04-04] MEDS: INSULIN REGULAR, HUMAN 100 UNITS/ML, 3ML HIGH DOSE SS SQ-INSULIN SCH ×4 (04:39→23:21)
[2018-04-04 05:01] LABS: ANION GAP 7 mmol/L (5-15); CALCIUM 8.1 mg/dL (8.5-10.1); CHLORIDE 109 mmol/L (98-107); CREATININE 1.17 mg/dL (0.55-1.02)
[2018-04-04 05:09] LABS: BASOPHILS # (AUTO) 0.01 x10^3/uL (0-0.1); BASOPHILS % (AUTO) 0 % (0-1); EOSINOPHILS # (AUTO) 0.32 x10^3/uL (0-0.4); EOSINOPHILS % (AUTO) 2 % (1-7); LYMPHOCYTES # (AUTO) 0.47 x10^3/uL (1-3.4); LYMPHOCYTES % (AUTO) 3 % (22-44); MD NO; MEAN CORPUSCULAR HEMOGLOBIN 28.9 pg (27.0-34.8); MEAN CORPUSCULAR VOLUME 87.6 fL (80-100); MONOCYTES # (AUTO) 0.57 x10^3/uL (0.2-0.8); MONOCYTES % (AUTO) 4 % (2-9); NEUTROPHILS # (AUTO) 13.28 x10^3/uL (1.8-6.8); NEUTROPHILS % (AUTO) 91 % (42-75); PLATELET COUNT 371 x10^3/uL (130-400); RED BLOOD COUNT 2.64 x10^6/uL (3.82-5.3); RED CELL DISTRIBUTION WIDTH 14.8 % (9.6-15.2)
[2018-04-04] MEDS: CARVEDILOL 3.125 MG TABLET PO SCH ×2 (06:27→18:53)
[2018-04-04] MEDS: LEVOTHYROXINE 50 MCG TABLET PO SCH (06:27)
[2018-04-04] MEDS: FUROSEMIDE 20 MG/2 ML IV SCH ×2 (08:53→17:10)
[2018-04-04] MEDS: CALCIUM CARBONATE 500 MG TAB.CHEW PO SCH (08:54)
[2018-04-04] MEDS: PANTOPRAZOLE 40 MG IV IV SCH (08:54)
[2018-04-04] MEDS: BUPROPION SR 150 MG TABLET PO SCH (08:54)
[2018-04-04] MEDS: DOCUSATE 50 MG/5 ML, 10ML UDC PO SCH ×2 (08:54→21:00)
[2018-04-04] MEDS: FLUDROCORTISONE 0.1 MG TABLET PO SCH (08:55)
[2018-04-04] MEDS: CHOLECALCIFEROL 400 UNITS TABLET PO SCH (08:55)
[2018-04-04] MEDS: MAGNESIUM OXIDE 400 MG TABLET PO SCH (08:55)
[2018-04-04] MEDS: LIOTHYRONINE 5 MCG TABLET PO SCH (08:56)
[2018-04-04] MEDS: MULTIVITAMIN 1 TABLET PO SCH (08:56)
[2018-04-04] MEDS: FENOFIBRATE 145 MG TABLET PO SCH (08:56)
[2018-04-04] MEDS: AMLODIPINE 10 MG TAB PO SCH (08:57)
[2018-04-04] MEDS: DOXYCYCLINE 100 MG in DEXTROSE 5% 250 ML IV SCH ×2 (08:58→20:39)
[2018-04-04] MEDS: DAKIN'S SOLUTION 1/4 STRENGTH 1,000 ML IRRIG SOLN EXT SCH ×2 (08:59→20:43)
[2018-04-04] MEDS: SERTRALINE 100MG TABLET PO SCH (09:05)
[2018-04-04] MEDS: HYDROCORTISONE 100 MG INJ. IVPush SCH ×2 (10:46→18:57)
[2018-04-04] MEDS ORDERED: POTASSIUM CHLORIDE 20 MEQ PACKET PO ONE (11:30)
[2018-04-04] MEDS: OXYcodone IR 5MG TABLET PO PRN (14:47)
[2018-04-04 18:35] VITALS: BP 121/64
[2018-04-05 01:33] VITALS: BP 129/66
[2018-04-05] MEDS: HYDROCORTISONE 100 MG INJ. IVPush SCH ×3 (03:28→18:07)
[2018-04-05 04:00] VITALS: BP 145/66
[2018-04-05] MEDS: ALBUMIN HUMAN 25% 100 ML IV SCH ×3 (05:15→20:10)
[2018-04-05] MEDS: HEPARIN 5,000 UNITS/ML, 1ML SQ SCH ×3 (05:15→20:08)
[2018-04-05] MEDS: PIPERACILLIN/TAZO/PMX 3.375GM 50 ML IV SCH ×4 (05:15→23:13)
[2018-04-05] MEDS ORDERED: LEVOTHYROXINE 25 MCG TABLET ONE (05:26)
[2018-04-05 05:44] LABS: BASOPHILS # (AUTO) 0.02 x10^3/uL (0-0.1); BASOPHILS % (AUTO) 0 % (0-1); EOSINOPHILS # (AUTO) 0.06 x10^3/uL (0-0.4); EOSINOPHILS % (AUTO) 0 % (1-7); LYMPHOCYTES # (AUTO) 0.51 x10^3/uL (1-3.4); LYMPHOCYTES % (AUTO) 4 % (22-44); MD NO; MEAN CORPUSCULAR HEMOGLOBIN 29.8 pg (27.0-34.8); MEAN CORPUSCULAR HGB CONC 33.7 g/dL (32.4-35.8); MEAN CORPUSCULAR VOLUME 88.4 fL (80-100); MEAN PLATELET VOLUME 9.3 fL (7.4-10.4); MONOCYTES # (AUTO) 0.66 x10^3/uL (0.2-0.8); MONOCYTES % (AUTO) 5 % (2-9); NEUTROPHILS # (AUTO) 13.09 x10^3/uL (1.8-6.8); NEUTROPHILS % (AUTO) 91 % (42-75); PLATELET COUNT 357 x10^3/uL (130-400); RED BLOOD COUNT 2.58 x10^6/uL (3.82-5.3); RED CELL DISTRIBUTION WIDTH 15.4 % (9.6-15.2)
[2018-04-05] MEDS: INSULIN REGULAR, HUMAN 100 UNITS/ML, 3ML HIGH DOSE SS SQ-INSULIN SCH ×4 (05:44→23:31)
[2018-04-05 05:54] LABS: ANION GAP 9 mmol/L (5-15); CALCIUM 8.4 mg/dL (8.5-10.1); CHLORIDE 111 mmol/L (98-107); CREATININE 1.21 mg/dL (0.55-1.02)
[2018-04-05] MEDS: LEVOTHYROXINE 50 MCG TABLET PO SCH (06:00)
[2018-04-05] MEDS: CARVEDILOL 3.125 MG TABLET PO SCH ×2 (07:38→18:10)
[2018-04-05] MEDS: PANTOPRAZOLE 40 MG IV IV SCH (08:22)
[2018-04-05] MEDS: DAKIN'S SOLUTION 1/4 STRENGTH 1,000 ML IRRIG SOLN EXT SCH ×2 (08:22→20:30)
[2018-04-05] MEDS: DOXYCYCLINE 100 MG in DEXTROSE 5% 250 ML IV SCH ×2 (08:22→20:07)
[2018-04-05] MEDS: FUROSEMIDE 20 MG/2 ML IV SCH ×2 (08:22→17:02)
[2018-04-05] MEDS: FLUDROCORTISONE 0.1 MG TABLET PO SCH (08:23)
[2018-04-05] MEDS: SERTRALINE 100MG TABLET PO SCH (08:23)
[2018-04-05] MEDS: AMLODIPINE 10 MG TAB PO SCH (08:23)
[2018-04-05] MEDS: FENOFIBRATE 145 MG TABLET PO SCH (08:23)
[2018-04-05] MEDS: CALCIUM CARBONATE 500 MG TAB.CHEW PO SCH (08:23)
[2018-04-05] MEDS: BUPROPION SR 150 MG TABLET PO SCH (08:24)
[2018-04-05] MEDS: MAGNESIUM OXIDE 400 MG TABLET PO SCH (08:24)
[2018-04-05] MEDS: LIOTHYRONINE 5 MCG TABLET PO SCH (08:24)
[2018-04-05] MEDS: CHOLECALCIFEROL 400 UNITS TABLET PO SCH (08:24)
[2018-04-05] MEDS: MULTIVITAMIN 1 TABLET PO SCH (08:25)
[2018-04-05] MEDS: DOCUSATE 50 MG/5 ML, 10ML UDC PO SCH ×2 (08:25→20:09)
[2018-04-05 09:20] VITALS: BP 137/71
[2018-04-05 12:40] VITALS: BP 149/68
[2018-04-05] MEDS ORDERED: POTASSIUM CHLORIDE 20 MEQ in SODIUM CHLORIDE 0.9% 250 ML IV ONE (14:00)
[2018-04-05] MEDS ORDERED: MAGNESIUM SULFATE PMX 2GM/50ML 50 ML IV ONE (14:00)
[2018-04-05 18:10] VITALS: BP 145/71
[2018-04-05 19:41] VITALS: BP 146/70
[2018-04-06] VITALS (10 sets, daily range): BP systolic 146–181; BP diastolic 65–78
[2018-04-06] MEDS ORDERED: LEVOTHYROXINE 25 MCG TABLET ONE (04:52)
[2018-04-06] MEDS: HYDROCORTISONE 100 MG INJ. IVPush SCH (04:57)
[2018-04-06] MEDS: HEPARIN 5,000 UNITS/ML, 1ML SQ SCH ×3 (04:57→20:01)
[2018-04-06] MEDS: PIPERACILLIN/TAZO/PMX 3.375GM 50 ML IV SCH ×4 (04:58→20:40)
[2018-04-06] MEDS: ALBUMIN HUMAN 25% 100 ML IV SCH ×3 (04:58→20:40)
[2018-04-06] MEDS: INSULIN REGULAR, HUMAN 100 UNITS/ML, 3ML HIGH DOSE SS SQ-INSULIN SCH ×4 (05:00→23:00)
[2018-04-06] MEDS: CARVEDILOL 3.125 MG TABLET PO SCH ×2 (05:36→18:04)
[2018-04-06] MEDS: LEVOTHYROXINE 50 MCG TABLET PO SCH (05:36)
[2018-04-06 06:04] LABS: MEAN CORPUSCULAR VOLUME 88.5 fL (80-100); PLATELET COUNT 313 x10^3/uL (130-400); RED BLOOD COUNT 2.27 x10^6/uL (3.82-5.3); RED CELL DISTRIBUTION WIDTH 15.1 % (9.6-15.2)
[2018-04-06 06:07] LABS: ANION GAP 18 mmol/L (5-15); CALCIUM 7.1 mg/dL (8.5-10.1); CHLORIDE 108 mmol/L (98-107); CREATININE 1.05 mg/dL (0.55-1.02)
[2018-04-06 06:46] LABS: MD YES
[2018-04-06 06:47] LABS: BAND#(MANUAL) 0.34 x10^3/uL; BANDS%(MANUAL) 3 % (0-7); LYMPH#(MANUAL) 0.68 x10^3/uL (1-3.4); LYMPHS% (MANUAL) 6 % (22-44); METAMYELOCYTES# (MANUAL) 0.11 x10^3/uL (0-0); METAMYELOCYTES% (MANUAL) 1 % (0-1); MONOS#(MANUAL) 0.34 x10^3/uL (0.3-2.7); MONOS% (MANUAL) 3 % (2-9); SEG#(MANUAL) 9.92 x10^3/uL (1.8-6.8); SEGS% (MANUAL) 87 % (42-75)
[2018-04-06 06:48] LABS: <PLATELET ESTIMATE> ADEQUATE; <PLT MORPHOLOGY> NORMAL PLT MORPH; ANISOCYTOSIS 1+; POLYCHROMASIA 1+
[2018-04-06] MEDS: FUROSEMIDE 20 MG/2 ML IV SCH (07:30)
[2018-04-06] MEDS: DOXYCYCLINE 100 MG in DEXTROSE 5% 250 ML IV SCH ×2 (08:19→20:00)
[2018-04-06] MEDS: BUPROPION SR 150 MG TABLET PO SCH (09:00)
[2018-04-06] MEDS ORDERED: POTASSIUM CHLORIDE 40 MEQ in SODIUM CHLORIDE 0.9% 500 ML IV ONE ×2 (09:00→13:00)
[2018-04-06] MEDS: DAKIN'S SOLUTION 1/4 STRENGTH 1,000 ML IRRIG SOLN EXT SCH ×2 (09:00→20:01)
[2018-04-06] MEDS: PANTOPRAZOLE 40 MG IV IV SCH (09:44)
[2018-04-06] MEDS: DOCUSATE 50 MG/5 ML, 10ML UDC PO SCH ×2 (09:44→20:40)
[2018-04-06] MEDS: FLUDROCORTISONE 0.1 MG TABLET PO SCH (09:44)
[2018-04-06] MEDS: FENOFIBRATE 145 MG TABLET PO SCH (09:44)
[2018-04-06] MEDS: SERTRALINE 100MG TABLET PO SCH (09:44)
[2018-04-06] MEDS: MAGNESIUM OXIDE 400 MG TABLET PO SCH (09:45)
[2018-04-06] MEDS: CHOLECALCIFEROL 400 UNITS TABLET PO SCH (09:45)
[2018-04-06] MEDS: CALCIUM CARBONATE 500 MG TAB.CHEW PO SCH (09:46)
[2018-04-06] MEDS: AMLODIPINE 10 MG TAB PO SCH (11:36)
[2018-04-06] MEDS: LIOTHYRONINE 5 MCG TABLET PO SCH (11:36)
[2018-04-06] MEDS: MULTIVITAMIN 1 TABLET PO SCH (11:36)
[2018-04-07] MEDS ORDERED: hydrALAzine 20 MG/ML, 1ML IV ONE
[2018-04-07] MEDS ORDERED: hydrALAzine 20 MG/ML, 1ML IV PRN (00:30)
[2018-04-07 03:04] VITALS: BP 165/72
[2018-04-07] MEDS: HEPARIN 5,000 UNITS/ML, 1ML SQ SCH ×3 (04:30→19:45)
[2018-04-07] MEDS: INSULIN REGULAR, HUMAN 100 UNITS/ML, 3ML HIGH DOSE SS SQ-INSULIN SCH ×4 (04:46→23:00)
[2018-04-07] MEDS: ALBUMIN HUMAN 25% 100 ML IV SCH (04:47)
[2018-04-07] MEDS: PIPERACILLIN/TAZO/PMX 3.375GM 50 ML IV SCH ×3 (04:47→22:55)
[2018-04-07] MEDS: LEVOTHYROXINE 50 MCG TABLET PO SCH (06:00)
[2018-04-07] MEDS ORDERED: CARVEDILOL 6.25 MG TABLET PO SCH (06:00)
[2018-04-07] MEDS ORDERED: LEVOTHYROXINE 25 MCG TABLET ONE (06:06)
[2018-04-07 06:18] LABS: ALBUMIN 3.3 g/dL (3.4-5.0); ANION GAP 9 mmol/L (5-15); CALCIUM 8.3 mg/dL (8.5-10.1); CHLORIDE 118 mmol/L (98-107)
[2018-04-07 06:22] LABS: % IRON SATURATION 9 % (20-55); ALANINE AMINOTRANSFERASE 21 U/L (12-78); ALKALINE PHOSPHATASE 63 U/L (45-117); BILIRUBIN,TOTAL 0.9 mg/dL (0.2-1.0); IRON LEVEL 18 mcg/dL (50-170); TOTAL IRON BINDING CAPACITY 206 mcg/dL (250-450); TOTAL PROTEIN 5.7 g/dL (6.4-8.2)
[2018-04-07 06:24] LABS: MEAN CORPUSCULAR HEMOGLOBIN 29.4 pg (27.0-34.8); MEAN CORPUSCULAR HGB CONC 33.7 g/dL (32.4-35.8); PLATELET COUNT 398 x10^3/uL (130-400); RED BLOOD COUNT 3.25 x10^6/uL (3.82-5.3); RED CELL DISTRIBUTION WIDTH 15.7 % (9.6-15.2)
[2018-04-07 06:45] LABS: BASOPHILS # (AUTO) 0.01 x10^3/uL (0-0.1); BASOPHILS % (AUTO) 0 % (0-1); EOSINOPHILS # (AUTO) 0.07 x10^3/uL (0-0.4); EOSINOPHILS % (AUTO) 0 % (1-7); LYMPHOCYTES # (AUTO) 0.64 x10^3/uL (1-3.4); LYMPHOCYTES % (AUTO) 4 % (22-44); MD SCAN; MONOCYTES # (AUTO) 0.92 x10^3/uL (0.2-0.8); MONOCYTES % (AUTO) 5 % (2-9); NEUTROPHILS % (AUTO) 91 % (42-75)
[2018-04-07 06:54] VITALS: BP 149/71
[2018-04-07] MEDS ORDERED: POTASSIUM PHOSPHATE 44 MEQ in SODIUM CHLORIDE 0.9% 500 ML IV ONE (08:30)
[2018-04-07] MEDS: DOXYCYCLINE 100 MG in DEXTROSE 5% 250 ML IV SCH ×2 (08:45→19:45)
[2018-04-07] MEDS: FENOFIBRATE 145 MG TABLET PO SCH (08:52)
[2018-04-07] MEDS: FLUDROCORTISONE 0.1 MG TABLET PO SCH (08:52)
[2018-04-07] MEDS: CALCIUM CARBONATE 500 MG TAB.CHEW PO SCH (08:52)
[2018-04-07] MEDS: MULTIVITAMIN 1 TABLET PO SCH (08:52)
[2018-04-07] MEDS: LIOTHYRONINE 5 MCG TABLET PO SCH (08:53)
[2018-04-07] MEDS: MAGNESIUM OXIDE 400 MG TABLET PO SCH (08:53)
[2018-04-07] MEDS: AMLODIPINE 10 MG TAB PO SCH (08:54)
[2018-04-07] MEDS: PANTOPRAZOLE 40 MG IV IV SCH (08:54)
[2018-04-07] MEDS: SERTRALINE 100MG TABLET PO SCH (08:54)
[2018-04-07] MEDS: DOCUSATE 50 MG/5 ML, 10ML UDC PO SCH ×2 (08:54→22:55)
[2018-04-07] MEDS: BUPROPION SR 150 MG TABLET PO SCH (09:00)
[2018-04-07] MEDS: DAKIN'S SOLUTION 1/4 STRENGTH 1,000 ML IRRIG SOLN EXT SCH ×2 (09:00→19:46)
[2018-04-07] MEDS: NEUTRA PHOS K 250 MG TABLET PO SCH ×3 (12:00→22:55)
[2018-04-07] MEDS: CHOLECALCIFEROL 400 UNITS TABLET PO SCH (12:20)
[2018-04-07] MEDS: IRON SUCROSE COMPLEX 100MG/5ML IV SCH (12:27)
[2018-04-07 12:51] VITALS: BP 176/75
[2018-04-07] MEDS ORDERED: POTASSIUM PHOSPHATE IV ONE (13:00)
[2018-04-07] MEDS ORDERED: DEXTROSE 5% IV ONE (13:00)
[2018-04-07 16:31] VITALS: BP 165/79
[2018-04-07] MEDS: CARVEDILOL 12.5 MG TABLET PO SCH (18:08)
[2018-04-07 18:38] VITALS: BP 145/71
[2018-04-07 19:13] VITALS: BP 126/74
[2018-04-07] MEDS: ACETAMINOPHEN 325 MG TABLET PO PRN (22:55)
[2018-04-07] MEDS: SIMETHICONE 80 MG CHEW TAB PO PRN (22:55)
[2018-04-08 01:55] VITALS: BP 144/67
[2018-04-08] MEDS: ACETAMINOPHEN 325 MG TABLET PO PRN ×2 (05:14→10:47)
[2018-04-08] MEDS: SIMETHICONE 80 MG CHEW TAB PO PRN ×2 (05:15→10:47)
[2018-04-08] MEDS: CARVEDILOL 12.5 MG TABLET PO SCH ×2 (05:15→18:00)
[2018-04-08] MEDS: LEVOTHYROXINE 50 MCG TABLET PO SCH (05:15)
[2018-04-08] MEDS: HEPARIN 5,000 UNITS/ML, 1ML SQ SCH ×3 (05:15→21:16)
[2018-04-08] MEDS: INSULIN REGULAR, HUMAN 100 UNITS/ML, 3ML HIGH DOSE SS SQ-INSULIN SCH ×4 (05:16→23:00)
[2018-04-08 05:21] LABS: BASOPHILS # (AUTO) 0.01 x10^3/uL (0-0.1); BASOPHILS % (AUTO) 0 % (0-1); EOSINOPHILS # (AUTO) 0.34 x10^3/uL (0-0.4); EOSINOPHILS % (AUTO) 2 % (1-7); LYMPHOCYTES # (AUTO) 0.64 x10^3/uL (1-3.4); LYMPHOCYTES % (AUTO) 4 % (22-44); MD NO; MEAN CORPUSCULAR HEMOGLOBIN 29.7 pg (27.0-34.8); MEAN CORPUSCULAR HGB CONC 33.4 g/dL (32.4-35.8); MEAN CORPUSCULAR VOLUME 88.7 fL (80-100); MEAN PLATELET VOLUME 8.9 fL (7.4-10.4); MONOCYTES # (AUTO) 0.53 x10^3/uL (0.2-0.8); MONOCYTES % (AUTO) 3 % (2-9); NEUTROPHILS % (AUTO) 91 % (42-75); PLATELET COUNT 334 x10^3/uL (130-400); RED BLOOD COUNT 3.25 x10^6/uL (3.82-5.3); RED CELL DISTRIBUTION WIDTH 16.3 % (9.6-15.2)
[2018-04-08 05:27] LABS: ALBUMIN 2.8 g/dL (3.4-5.0); ANION GAP 8 mmol/L (5-15); CALCIUM 8.3 mg/dL (8.5-10.1); CHLORIDE 117 mmol/L (98-107)
[2018-04-08 05:30] LABS: ALANINE AMINOTRANSFERASE 21 U/L (12-78); ALKALINE PHOSPHATASE 67 U/L (45-117); BILIRUBIN,TOTAL 0.8 mg/dL (0.2-1.0); CREATININE 1.02 mg/dL (0.55-1.02); TOTAL PROTEIN 5.6 g/dL (6.4-8.2)
[2018-04-08] MEDS: PIPERACILLIN/TAZO/PMX 3.375GM 50 ML IV SCH ×3 (06:39→23:01)
[2018-04-08 06:46] VITALS: BP 123/67
[2018-04-08] MEDS: DAKIN'S SOLUTION 1/4 STRENGTH 1,000 ML IRRIG SOLN EXT SCH ×2 (09:00→21:00)
[2018-04-08] MEDS: BUPROPION SR 150 MG TABLET PO SCH (09:00)
[2018-04-08] MEDS: MULTIVITAMIN 1 TABLET PO SCH (09:02)
[2018-04-08] MEDS: SERTRALINE 100MG TABLET PO SCH (09:02)
[2018-04-08] MEDS: AMLODIPINE 10 MG TAB PO SCH (09:02)
[2018-04-08] MEDS: DOXYCYCLINE 100 MG in DEXTROSE 5% 250 ML IV SCH ×2 (09:02→20:23)
[2018-04-08] MEDS: CHOLECALCIFEROL 400 UNITS TABLET PO SCH (09:02)
[2018-04-08] MEDS: LIOTHYRONINE 5 MCG TABLET PO SCH (09:02)
[2018-04-08] MEDS: FENOFIBRATE 145 MG TABLET PO SCH (09:03)
[2018-04-08] MEDS: DOCUSATE 50 MG/5 ML, 10ML UDC PO SCH ×2 (09:03→22:42)
[2018-04-08] MEDS: FLUDROCORTISONE 0.1 MG TABLET PO SCH (09:03)
[2018-04-08] MEDS: MAGNESIUM OXIDE 400 MG TABLET PO SCH (09:03)
[2018-04-08] MEDS: NEUTRA PHOS K 250 MG TABLET PO SCH ×3 (09:03→22:42)
[2018-04-08] MEDS: CALCIUM CARBONATE 500 MG TAB.CHEW PO SCH (09:03)
[2018-04-08] MEDS: PANTOPRAZOLE 40 MG IV IV SCH (09:04)
[2018-04-08] MEDS: IRON SUCROSE COMPLEX 100MG/5ML IV SCH (09:04)
[2018-04-08 13:12] VITALS: BP 147/69
[2018-04-08] MEDS ORDERED: FENTANYL PF 250 MCG/5ML ONE (14:11)
[2018-04-08] MEDS ORDERED: MIDAZOLAM 1 MG/ML, 2ML ONE (14:11)
[2018-04-08] MEDS ORDERED: ROCURONIUM 10MG/ML,5ML ONE (14:24)
[2018-04-08] MEDS ORDERED: ONDANSETRON 2MG/ML, 2ML ONE (14:24)
[2018-04-08] MEDS ORDERED: PROPOFOL 10 MG/ML, 20ML ONE (14:55)
[2018-04-08] MEDS ORDERED: SUCCINYLCHOLINE 20 MG/ML, 10ML ONE (14:55)
[2018-04-08] MEDS: MORPHINE SULFATE 4 MG/ML, 1ML IVPush PRN ×2 (15:48→16:55)
[2018-04-08] MEDS ORDERED: morphine SULFATE 10 MG/ML, 1ML ONE (16:46)
[2018-04-08] MEDS ORDERED: FENTANYL PF 100 MCG/2ML ONE (16:57)
[2018-04-08] MEDS ORDERED: DIAZEPAM 5 MG/ML, 2ML IVPush PRN (17:00)
[2018-04-08] MEDS ORDERED: ONDANSETRON 2MG/ML, 2ML IV PRN (17:00)
[2018-04-08] MEDS ORDERED: DIPHENHYDRAMINE 50 MG/ML, 1ML IVPush PRN (17:00)
[2018-04-08] MEDS ORDERED: FENTANYL PF 100 MCG/2ML IV PRN (17:00)
[2018-04-08] MEDS ORDERED: EPHEDRINE 50 MG/ML, 1ML IM PRN (17:00)
[2018-04-08] MEDS ORDERED: EPHEDRINE 50 MG/ML, 1ML IVPush PRN (17:00)
[2018-04-08] MEDS ORDERED: PROMETHAZINE 25 MG/ML, 1ML IV PRN (17:00)
[2018-04-08] MEDS ORDERED: MIDAZOLAM 1 MG/ML, 2ML IV PRN (17:00)
[2018-04-08] MEDS: D5%-0.9% NACL 1,000 ML IV SCH (20:24)
[2018-04-09 00:45] VITALS: BP 105/69
[2018-04-09 03:30] VITALS: BP 95/64
[2018-04-09] MEDS: HEPARIN 5,000 UNITS/ML, 1ML SQ SCH ×3 (05:11→20:32)
[2018-04-09] MEDS: D5%-0.9% NACL 1,000 ML IV SCH (05:11)
[2018-04-09] MEDS: CARVEDILOL 12.5 MG TABLET PO SCH ×2 (05:11→17:01)
[2018-04-09] MEDS: LEVOTHYROXINE 50 MCG TABLET PO SCH (05:11)
[2018-04-09] MEDS: INSULIN REGULAR, HUMAN 100 UNITS/ML, 3ML HIGH DOSE SS SQ-INSULIN SCH ×4 (05:54→22:53)
[2018-04-09 06:01] LABS: MEAN CORPUSCULAR HEMOGLOBIN 30.4 pg (27.0-34.8); MEAN CORPUSCULAR HGB CONC 34.1 g/dL (32.4-35.8); MEAN CORPUSCULAR VOLUME 89.2 fL (80-100); MEAN PLATELET VOLUME 9.4 fL (7.4-10.4); PLATELET COUNT 322 x10^3/uL (130-400); RED BLOOD COUNT 3.49 x10^6/uL (3.82-5.3); RED CELL DISTRIBUTION WIDTH 16.4 % (9.6-15.2)
[2018-04-09 06:10] LABS: ALBUMIN 2.1 g/dL (3.4-5.0); CALCIUM 7.6 mg/dL (8.5-10.1); CHLORIDE 117 mmol/L (98-107)
[2018-04-09 06:14] LABS: MD YES
[2018-04-09 06:16] LABS: ALANINE AMINOTRANSFERASE 22 U/L (12-78); ALKALINE PHOSPHATASE 54 U/L (45-117); ANION GAP 11 mmol/L (5-15); BILIRUBIN,TOTAL 0.9 mg/dL (0.2-1.0); CREATININE 1.46 mg/dL (0.55-1.02); TOTAL PROTEIN 4.5 g/dL (6.4-8.2)
[2018-04-09 06:18] LABS: ANISOCYTOSIS 1+; BAND#(MANUAL) 2.48 x10^3/uL; BANDS%(MANUAL) 9 % (0-7); LYMPH#(MANUAL) 0.28 x10^3/uL (1-3.4); LYMPHS% (MANUAL) 1 % (22-44); MONOS#(MANUAL) 0.55 x10^3/uL (0.3-2.7); MONOS% (MANUAL) 2 % (2-9); SEG#(MANUAL) 24.29 x10^3/uL (1.8-6.8); SEGS% (MANUAL) 88 % (42-75)
[2018-04-09 06:19] LABS: <PLATELET ESTIMATE> ADEQUATE; <PLT MORPHOLOGY> NORMAL PLT MORPH; POLYCHROMASIA 1+
[2018-04-09] MEDS: PIPERACILLIN/TAZO/PMX 3.375GM 50 ML IV SCH ×3 (06:48→22:53)
[2018-04-09] MEDS: DOXYCYCLINE 100 MG in DEXTROSE 5% 250 ML IV SCH ×2 (08:07→20:20)
[2018-04-09 08:18] VITALS: BP 84/48
[2018-04-09] MEDS ORDERED: SODIUM CHLORIDE 0.9%, 500ML IVBOLUS ONE (09:00)
[2018-04-09] MEDS: BUPROPION SR 150 MG TABLET PO SCH (09:00)
[2018-04-09] MEDS: DOCUSATE 50 MG/5 ML, 10ML UDC PO SCH ×2 (09:00→20:32)
[2018-04-09] MEDS: DAKIN'S SOLUTION 1/4 STRENGTH 1,000 ML IRRIG SOLN EXT SCH ×2 (09:00→20:37)
[2018-04-09] MEDS ORDERED: LOSARTAN 50MG TABLET PO SCH (09:00)
[2018-04-09] MEDS: IRON SUCROSE COMPLEX 100MG/5ML IV SCH (09:00)
[2018-04-09] MEDS: AMLODIPINE 10 MG TAB PO SCH (09:00)
[2018-04-09] MEDS: ERGOCALCIFEROL 50,000 UNIT CAPSULE PO SCH (10:00)
[2018-04-09] MEDS: PANTOPRAZOLE 40 MG IV IV SCH (10:17)
[2018-04-09] MEDS: CHOLECALCIFEROL 400 UNITS TABLET PO SCH (10:18)
[2018-04-09] MEDS: CALCIUM CARBONATE 500 MG TAB.CHEW PO SCH (10:18)
[2018-04-09] MEDS: NEUTRA PHOS K 250 MG TABLET PO SCH ×3 (10:19→20:32)
[2018-04-09] MEDS: MAGNESIUM OXIDE 400 MG TABLET PO SCH (10:19)
[2018-04-09] MEDS: FENOFIBRATE 145 MG TABLET PO SCH (10:19)
[2018-04-09] MEDS: MULTIVITAMIN 1 TABLET PO SCH (10:19)
[2018-04-09] MEDS: FLUDROCORTISONE 0.1 MG TABLET PO SCH (10:19)
[2018-04-09] MEDS: SERTRALINE 100MG TABLET PO SCH (10:19)
[2018-04-09] MEDS: LIOTHYRONINE 5 MCG TABLET PO SCH (10:19)
[2018-04-09] MEDS: ACETAMINOPHEN 325 MG TABLET PO PRN (10:26)
[2018-04-09] MEDS: SODIUM BICARB 8.4%,50ML SYR. 75 MEQ in DEXTROSE 5% 1,000 ML IV SCH ×2 (11:02→22:53)
[2018-04-09 14:56] VITALS: BP 99/63
[2018-04-09 15:05] LABS: MEAN CORPUSCULAR HGB CONC 33.5 g/dL (32.4-35.8); MEAN CORPUSCULAR VOLUME 89.4 fL (80-100); MEAN PLATELET VOLUME 8.9 fL (7.4-10.4); PLATELET COUNT 296 x10^3/uL (130-400); RED BLOOD COUNT 3.43 x10^6/uL (3.82-5.3); RED CELL DISTRIBUTION WIDTH 16.6 % (9.6-15.2)
[2018-04-09 15:16] LABS: ANION GAP 13 mmol/L (5-15); CALCIUM 7.8 mg/dL (8.5-10.1); CHLORIDE 115 mmol/L (98-107)
[2018-04-09 15:26] LABS: MD YES
[2018-04-09 15:28] LABS: <PLATELET ESTIMATE> ADEQUATE; <PLT MORPHOLOGY> NORMAL PLT MORPH; ANISOCYTOSIS 1+; BAND#(MANUAL) 1.34 x10^3/uL; BANDS%(MANUAL) 5 % (0-7); LYMPH#(MANUAL) 1.07 x10^3/uL (1-3.4); LYMPHS% (MANUAL) 4 % (22-44); MONOS#(MANUAL) 0.27 x10^3/uL (0.3-2.7); MONOS% (MANUAL) 1 % (2-9); POLYCHROMASIA 1+; SEG#(MANUAL) 24.03 x10^3/uL (1.8-6.8); SEGS% (MANUAL) 90 % (42-75)
[2018-04-09 17:01] VITALS: BP 95/61
[2018-04-09 18:45] VITALS: BP 108/68
[2018-04-10 02:30] VITALS: BP 114/68
[2018-04-10] MEDS: HEPARIN 5,000 UNITS/ML, 1ML SQ SCH ×3 (04:25→22:13)
[2018-04-10] MEDS: INSULIN REGULAR, HUMAN 100 UNITS/ML, 3ML HIGH DOSE SS SQ-INSULIN SCH ×4 (04:53→23:00)
[2018-04-10] MEDS ORDERED: CATHFLO-ALTEPLASE 2 MG/2 ML CATHFLUSH ONE (05:00)
[2018-04-10] MEDS: LEVOTHYROXINE 50 MCG TABLET PO SCH (05:28)
[2018-04-10] MEDS: CARVEDILOL 12.5 MG TABLET PO SCH (05:28)
[2018-04-10 06:04] LABS: MEAN CORPUSCULAR HGB CONC 33.7 g/dL (32.4-35.8); MEAN CORPUSCULAR VOLUME 88.9 fL (80-100); MEAN PLATELET VOLUME 8.8 fL (7.4-10.4); PLATELET COUNT 281 x10^3/uL (130-400); RED BLOOD COUNT 3.05 x10^6/uL (3.82-5.3); RED CELL DISTRIBUTION WIDTH 16.8 % (9.6-15.2)
[2018-04-10 06:11] LABS: ALANINE AMINOTRANSFERASE 20 U/L (12-78); ALBUMIN 1.9 g/dL (3.4-5.0); ANION GAP 13 mmol/L (5-15); CALCIUM 7.9 mg/dL (8.5-10.1); CHLORIDE 112 mmol/L (98-107); CREATININE 1.77 mg/dL (0.55-1.02)
[2018-04-10 06:14] LABS: ALKALINE PHOSPHATASE 60 U/L (45-117); BILIRUBIN,TOTAL 0.7 mg/dL (0.2-1.0); TOTAL PROTEIN 4.7 g/dL (6.4-8.2)
[2018-04-10 06:29] LABS: BASOPHILS % (AUTO) 0 % (0-1); EOSINOPHILS % (AUTO) 0 % (1-7); LYMPHOCYTES # (AUTO) 0.97 x10^3/uL (1-3.4); LYMPHOCYTES % (AUTO) 5 % (22-44); MD SCAN; MONOCYTES # (AUTO) 0.81 x10^3/uL (0.2-0.8); MONOCYTES % (AUTO) 4 % (2-9); NEUTROPHILS % (AUTO) 91 % (42-75)
[2018-04-10] MEDS: PIPERACILLIN/TAZO/PMX 3.375GM 50 ML IV SCH ×3 (06:44→22:55)
[2018-04-10 07:00] VITALS: BP 104/63
[2018-04-10] MEDS: DOCUSATE 50 MG/5 ML, 10ML UDC PO SCH (09:00)
[2018-04-10] MEDS: DAKIN'S SOLUTION 1/4 STRENGTH 1,000 ML IRRIG SOLN EXT SCH ×2 (09:00→21:00)
[2018-04-10] MEDS: BUPROPION SR 150 MG TABLET PO SCH (09:00)
[2018-04-10] MEDS: PANTOPRAZOLE 40 MG IV IV SCH (09:39)
[2018-04-10] MEDS: CALCIUM CARBONATE 500 MG TAB.CHEW PO SCH ×3 (09:40→11:56)
[2018-04-10] MEDS: LIOTHYRONINE 5 MCG TABLET PO SCH (09:40)
[2018-04-10] MEDS: CHOLECALCIFEROL 400 UNITS TABLET PO SCH (09:41)
[2018-04-10] MEDS: NEUTRA PHOS K 250 MG TABLET PO SCH (09:41)
[2018-04-10] MEDS: FENOFIBRATE 145 MG TABLET PO SCH (09:42)
[2018-04-10] MEDS: SERTRALINE 100MG TABLET PO SCH (09:42)
[2018-04-10] MEDS: MULTIVITAMIN 1 TABLET PO SCH (09:42)
[2018-04-10] MEDS: FLUDROCORTISONE 0.1 MG TABLET PO SCH (09:42)
[2018-04-10] MEDS: MAGNESIUM OXIDE 400 MG TABLET PO SCH (09:42)
[2018-04-10] MEDS: SODIUM BICARB 8.4%,50ML SYR. 100 MEQ in DEXTROSE 5% 1,000 ML IV SCH ×2 (11:31→22:55)
[2018-04-10 12:39] VITALS: BP 100/55
[2018-04-10] MEDS: ACETAMINOPHEN 325 MG TABLET PO PRN (15:43)
[2018-04-10] MEDS ORDERED: DOCUSATE 50 MG/5 ML, 10ML UDC PO PRN (17:00)
[2018-04-10 18:35] VITALS: BP 103/61
[2018-04-10] MEDS: CARVEDILOL 3.125 MG TABLET PO SCH (18:36)
[2018-04-11 01:55] VITALS: BP 119/68
[2018-04-11] MEDS ORDERED: LEVOTHYROXINE 25 MCG TABLET ONE (05:27)
[2018-04-11] MEDS: LEVOTHYROXINE 50 MCG TABLET PO SCH (05:28)
[2018-04-11] MEDS: CARVEDILOL 3.125 MG TABLET PO SCH ×2 (05:28→16:58)
[2018-04-11] MEDS: HEPARIN 5,000 UNITS/ML, 1ML SQ SCH ×3 (05:38→21:05)
[2018-04-11] MEDS: INSULIN REGULAR, HUMAN 100 UNITS/ML, 3ML HIGH DOSE SS SQ-INSULIN SCH ×4 (05:41→23:20)
[2018-04-11 06:17] LABS: MEAN CORPUSCULAR HEMOGLOBIN 29.8 pg (27.0-34.8); MEAN CORPUSCULAR HGB CONC 33.7 g/dL (32.4-35.8); MEAN CORPUSCULAR VOLUME 88.3 fL (80-100); MEAN PLATELET VOLUME 8.7 fL (7.4-10.4); PLATELET COUNT 243 x10^3/uL (130-400); RED BLOOD COUNT 2.47 x10^6/uL (3.82-5.3); RED CELL DISTRIBUTION WIDTH 16.8 % (9.6-15.2)
[2018-04-11 06:25] LABS: ANION GAP 9 mmol/L (5-15); CALCIUM 7.5 mg/dL (8.5-10.1); CHLORIDE 107 mmol/L (98-107); CREATININE 1.63 mg/dL (0.55-1.02)
[2018-04-11 06:36] LABS: BASOPHILS # (AUTO) 0.24 x10^3/uL (0-0.1); BASOPHILS % (AUTO) 2 % (0-1); EOSINOPHILS % (AUTO) 0 % (1-7); LYMPHOCYTES # (AUTO) 0.64 x10^3/uL (1-3.4); LYMPHOCYTES % (AUTO) 6 % (22-44); MD SCAN; MONOCYTES # (AUTO) 0.55 x10^3/uL (0.2-0.8); MONOCYTES % (AUTO) 5 % (2-9); NEUTROPHILS # (AUTO) 10.08 x10^3/uL (1.8-6.8); NEUTROPHILS % (AUTO) 88 % (42-75)
[2018-04-11 07:36] VITALS: BP 115/68
[2018-04-11] MEDS: PIPERACILLIN/TAZO/PMX 3.375GM 50 ML IV SCH ×2 (07:41→16:55)
[2018-04-11 07:49] LABS: BASOPHILS # (AUTO) 0.01 x10^3/uL (0-0.1); BASOPHILS % (AUTO) 0 % (0-1); EOSINOPHILS % (AUTO) 0 % (1-7); LYMPHOCYTES # (AUTO) 0.59 x10^3/uL (1-3.4); LYMPHOCYTES % (AUTO) 6 % (22-44); MD NO; MEAN CORPUSCULAR VOLUME 87.7 fL (80-100); MEAN PLATELET VOLUME 8.6 fL (7.4-10.4); MONOCYTES # (AUTO) 0.57 x10^3/uL (0.2-0.8); MONOCYTES % (AUTO) 6 % (2-9); NEUTROPHILS # (AUTO) 9.11 x10^3/uL (1.8-6.8); NEUTROPHILS % (AUTO) 89 % (42-75); PLATELET COUNT 247 x10^3/uL (130-400); RED BLOOD COUNT 2.82 x10^6/uL (3.82-5.3); RED CELL DISTRIBUTION WIDTH 16.5 % (9.6-15.2)
[2018-04-11] MEDS ORDERED: HYDROmorphone 2 MG/ML, 1ML ONE (07:50)
[2018-04-11] MEDS: DAKIN'S SOLUTION 1/4 STRENGTH 1,000 ML IRRIG SOLN EXT SCH (07:53)
[2018-04-11] MEDS: BUPROPION SR 150 MG TABLET PO SCH (08:32)
[2018-04-11] MEDS: SERTRALINE 100MG TABLET PO SCH (08:32)
[2018-04-11] MEDS: MULTIVITAMIN 1 TABLET PO SCH (08:32)
[2018-04-11] MEDS: PANTOPRAZOLE 40 MG IV IV SCH (08:32)
[2018-04-11] MEDS: FLUDROCORTISONE 0.1 MG TABLET PO SCH (08:32)
[2018-04-11] MEDS: FENOFIBRATE 145 MG TABLET PO SCH (08:32)
[2018-04-11] MEDS: LIOTHYRONINE 5 MCG TABLET PO SCH (08:32)
[2018-04-11] MEDS: CHOLECALCIFEROL 400 UNITS TABLET PO SCH (08:33)
[2018-04-11] MEDS ORDERED: HYDROmorphone 1 MG/ML, 1ML IV ONE (09:00)
[2018-04-11] MEDS ORDERED: SODIUM BICARB 8.4%,50ML SYR. 100 MEQ in DEXTROSE 5% 1,000 ML IV SCH (11:30)
[2018-04-11 12:50] VITALS: BP 133/72
[2018-04-11 17:00] VITALS: BP 126/74
[2018-04-11] MEDS: ACETAMINOPHEN 325 MG TABLET PO PRN (21:05)
[2018-04-11 21:06] VITALS: BP 108/51
[2018-04-11] MEDS: AMPICILLIN/SULBACTAM 3 GM in SODIUM CHLORIDE 0.9% 100 ML IV SCH (21:06)
[2018-04-12 04:14] VITALS: BP 142/71
[2018-04-12] MEDS: HEPARIN 5,000 UNITS/ML, 1ML SQ SCH ×3 (04:14→20:32)
[2018-04-12 05:58] LABS: ALBUMIN 1.8 g/dL (3.4-5.0); ANION GAP 12 mmol/L (5-15); CALCIUM 7.7 mg/dL (8.5-10.1); CHLORIDE 108 mmol/L (98-107); CREATININE 1.55 mg/dL (0.55-1.02)
[2018-04-12 06:03] LABS: BASOPHILS % (AUTO) 0 % (0-1); EOSINOPHILS % (AUTO) 0 % (1-7); LYMPHOCYTES # (AUTO) 0.43 x10^3/uL (1-3.4); LYMPHOCYTES % (AUTO) 7 % (22-44); MD NO; MEAN CORPUSCULAR HEMOGLOBIN 29.5 pg (27.0-34.8); MEAN CORPUSCULAR HGB CONC 33.4 g/dL (32.4-35.8); MEAN CORPUSCULAR VOLUME 88.2 fL (80-100); MEAN PLATELET VOLUME 9.3 fL (7.4-10.4); MONOCYTES # (AUTO) 0.41 x10^3/uL (0.2-0.8); MONOCYTES % (AUTO) 7 % (2-9); NEUTROPHILS % (AUTO) 86 % (42-75); PLATELET COUNT 226 x10^3/uL (130-400); RED BLOOD COUNT 2.76 x10^6/uL (3.82-5.3); RED CELL DISTRIBUTION WIDTH 16.6 % (9.6-15.2)
[2018-04-12] MEDS ORDERED: LEVOTHYROXINE 25 MCG TABLET ONE (06:09)
[2018-04-12] MEDS: INSULIN REGULAR, HUMAN 100 UNITS/ML, 3ML HIGH DOSE SS SQ-INSULIN SCH ×4 (06:22→23:00)
[2018-04-12] MEDS: LEVOTHYROXINE 50 MCG TABLET PO SCH (06:23)
[2018-04-12] MEDS: CARVEDILOL 3.125 MG TABLET PO SCH ×2 (06:23→17:54)
[2018-04-12] MEDS: PANTOPRAZOLE 40 MG IV IV SCH (08:00)
[2018-04-12] MEDS: AMPICILLIN/SULBACTAM 3 GM in SODIUM CHLORIDE 0.9% 100 ML IV SCH ×2 (08:00→20:32)
[2018-04-12] MEDS: SERTRALINE 100MG TABLET PO SCH (08:00)
[2018-04-12] MEDS: FENOFIBRATE 145 MG TABLET PO SCH (08:00)
[2018-04-12] MEDS: BUPROPION SR 150 MG TABLET PO SCH (08:00)
[2018-04-12] MEDS ORDERED: DEXTROSE 5% 1,000 ML IV SCH (08:00)
[2018-04-12] MEDS: FLUDROCORTISONE 0.1 MG TABLET PO SCH (08:00)
[2018-04-12] MEDS: LIOTHYRONINE 5 MCG TABLET PO SCH (08:00)
[2018-04-12] MEDS: MULTIVITAMIN 1 TABLET PO SCH (08:00)
[2018-04-12] MEDS: CHOLECALCIFEROL 400 UNITS TABLET PO SCH (08:01)
[2018-04-12] MEDS: CALCIUM CARBONATE 500 MG TAB.CHEW PO SCH (08:01)
[2018-04-12 08:11] VITALS: BP 129/58
[2018-04-12] MEDS ORDERED: CATHFLO-ALTEPLASE 2 MG/2 ML CATHFLUSH ONE (09:30)
[2018-04-12] MEDS ORDERED: SODIUM BICARB 8.4%,50ML SYR. 100 MEQ in DEXTROSE 5% 1,000 ML IV SCH (11:30)
[2018-04-12 13:18] VITALS: BP 129/69
[2018-04-12 17:50] VITALS: BP 134/75
[2018-04-12 20:45] VITALS: BP 146/74
[2018-04-13 02:21] VITALS: BP 140/66
[2018-04-13] MEDS: INSULIN REGULAR, HUMAN 100 UNITS/ML, 3ML HIGH DOSE SS SQ-INSULIN SCH ×4 (05:00→23:26)
[2018-04-13] MEDS ORDERED: LEVOTHYROXINE 25 MCG TABLET ONE (05:32)
[2018-04-13] MEDS: HEPARIN 5,000 UNITS/ML, 1ML SQ SCH ×3 (05:37→21:05)
[2018-04-13] MEDS: CARVEDILOL 3.125 MG TABLET PO SCH ×2 (05:38→17:59)
[2018-04-13] MEDS: LEVOTHYROXINE 50 MCG TABLET PO SCH (05:38)
[2018-04-13 05:39] LABS: BASOPHILS # (AUTO) 0.01 x10^3/uL (0-0.1); BASOPHILS % (AUTO) 0 % (0-1); EOSINOPHILS % (AUTO) 0 % (1-7); LYMPHOCYTES # (AUTO) 0.49 x10^3/uL (1-3.4); LYMPHOCYTES % (AUTO) 9 % (22-44); MD NO; MEAN CORPUSCULAR HEMOGLOBIN 30.3 pg (27.0-34.8); MEAN CORPUSCULAR HGB CONC 34.1 g/dL (32.4-35.8); MEAN CORPUSCULAR VOLUME 88.9 fL (80-100); MEAN PLATELET VOLUME 9.1 fL (7.4-10.4); MONOCYTES # (AUTO) 0.46 x10^3/uL (0.2-0.8); MONOCYTES % (AUTO) 9 % (2-9); NEUTROPHILS # (AUTO) 4.37 x10^3/uL (1.8-6.8); NEUTROPHILS % (AUTO) 82 % (42-75); PLATELET COUNT 201 x10^3/uL (130-400); RED BLOOD COUNT 2.79 x10^6/uL (3.82-5.3); RED CELL DISTRIBUTION WIDTH 16.3 % (9.6-15.2)
[2018-04-13 05:46] LABS: ALBUMIN 1.9 g/dL (3.4-5.0); ANION GAP 9 mmol/L (5-15); CALCIUM 7.9 mg/dL (8.5-10.1); CHLORIDE 110 mmol/L (98-107)
[2018-04-13 05:48] LABS: CREATININE 1.31 mg/dL (0.55-1.02)
[2018-04-13 05:49] LABS: ALANINE AMINOTRANSFERASE 15 U/L (12-78); ALKALINE PHOSPHATASE 79 U/L (45-117); BILIRUBIN,TOTAL 0.6 mg/dL (0.2-1.0); TOTAL PROTEIN 4.9 g/dL (6.4-8.2)
[2018-04-13] MEDS: BUPROPION SR 150 MG TABLET PO SCH (08:21)
[2018-04-13] MEDS: CHOLECALCIFEROL 400 UNITS TABLET PO SCH (08:21)
[2018-04-13] MEDS: CALCIUM CARBONATE 500 MG TAB.CHEW PO SCH ×2 (08:21→08:47)
[2018-04-13] MEDS: FLUDROCORTISONE 0.1 MG TABLET PO SCH (08:21)
[2018-04-13] MEDS: MULTIVITAMIN 1 TABLET PO SCH ×2 (08:21→09:00)
[2018-04-13] MEDS: FENOFIBRATE 145 MG TABLET PO SCH (08:21)
[2018-04-13] MEDS: SERTRALINE 100MG TABLET PO SCH ×2 (08:21→09:00)
[2018-04-13] MEDS: PANTOPRAZOLE 40 MG IV IV SCH (08:22)
[2018-04-13] MEDS: LIOTHYRONINE 5 MCG TABLET PO SCH (08:22)
[2018-04-13] MEDS: AMPICILLIN/SULBACTAM 3 GM in SODIUM CHLORIDE 0.9% 100 ML IV SCH ×2 (08:24→16:09)
[2018-04-13 08:34] VITALS: BP 136/69
[2018-04-13] MEDS: DEXTROSE 5% 1,000 ML IV SCH (12:55)
[2018-04-13 12:57] VITALS: BP 154/69
[2018-04-13 17:56] VITALS: BP 151/72
[2018-04-13 20:00] VITALS: BP 144/66
[2018-04-14 00:37] VITALS: BP 145/71
[2018-04-14] MEDS: AMPICILLIN/SULBACTAM 3 GM in SODIUM CHLORIDE 0.9% 100 ML IV SCH ×4 (00:44→23:40)
[2018-04-14] MEDS: DEXTROSE 5% 1,000 ML IV SCH (03:54)
[2018-04-14] MEDS: INSULIN REGULAR, HUMAN 100 UNITS/ML, 3ML HIGH DOSE SS SQ-INSULIN SCH ×4 (05:52→22:04)
[2018-04-14] MEDS: HEPARIN 5,000 UNITS/ML, 1ML SQ SCH ×3 (05:53→21:49)
[2018-04-14] MEDS: LEVOTHYROXINE 50 MCG TABLET PO SCH (05:53)
[2018-04-14] MEDS: CARVEDILOL 3.125 MG TABLET PO SCH ×2 (05:54→17:40)
[2018-04-14] MEDS: APAP/CODEINE 300/30MG TABLET PO PRN ×2 (05:54→12:40)
[2018-04-14 06:50] LABS: BASOPHILS # (AUTO) 0.05 x10^3/uL (0-0.1); BASOPHILS % (AUTO) 1 % (0-1); EOSINOPHILS # (AUTO) 0.01 x10^3/uL (0-0.4); EOSINOPHILS % (AUTO) 0 % (1-7); LYMPHOCYTES # (AUTO) 0.45 x10^3/uL (1-3.4); LYMPHOCYTES % (AUTO) 11 % (22-44); MD NO; MEAN CORPUSCULAR HEMOGLOBIN 28.9 pg (27.0-34.8); MEAN CORPUSCULAR VOLUME 87.5 fL (80-100); MEAN PLATELET VOLUME 8.5 fL (7.4-10.4); MONOCYTES # (AUTO) 0.25 x10^3/uL (0.2-0.8); MONOCYTES % (AUTO) 6 % (2-9); NEUTROPHILS # (AUTO) 3.33 x10^3/uL (1.8-6.8); NEUTROPHILS % (AUTO) 81 % (42-75); PLATELET COUNT 190 x10^3/uL (130-400)
[2018-04-14 06:53] LABS: ALBUMIN 1.9 g/dL (3.4-5.0); ANION GAP 8 mmol/L (5-15); CHLORIDE 110 mmol/L (98-107); CREATININE 0.88 mg/dL (0.55-1.02)
[2018-04-14] MEDS: CHOLECALCIFEROL 400 UNITS TABLET PO SCH (09:08)
[2018-04-14] MEDS: MULTIVITAMIN 1 TABLET PO SCH (09:09)
[2018-04-14] MEDS: FENOFIBRATE 145 MG TABLET PO SCH (09:09)
[2018-04-14] MEDS: FLUDROCORTISONE 0.1 MG TABLET PO SCH (09:09)
[2018-04-14] MEDS: BUPROPION SR 150 MG TABLET PO SCH (09:09)
[2018-04-14] MEDS: PANTOPRAZOLE 40 MG IV IV SCH (09:09)
[2018-04-14] MEDS: LIOTHYRONINE 5 MCG TABLET PO SCH (09:09)
[2018-04-14] MEDS: SERTRALINE 100MG TABLET PO SCH (09:09)
[2018-04-14 09:18] VITALS: BP 132/73
[2018-04-14] MEDS: CALCIUM CARBONATE 500 MG TAB.CHEW PO SCH (09:33)
[2018-04-14 14:23] VITALS: BP 129/77
[2018-04-14] MEDS ORDERED: AMPICILLIN/SULBACTAM 3 GM in SODIUM CHLORIDE 0.9% 100 ML IV SCH (15:00)
[2018-04-14] MEDS ORDERED: GLUCAGON 1 MG IM PRN (15:30)
[2018-04-14] MEDS ORDERED: DEXTROSE 4 GM TAB.CHEW PO PRN (15:30)
[2018-04-14] MEDS ORDERED: DEXTROSE 50%, 50ML SYRINGE IVPush PRN (15:30)
[2018-04-14] MEDS: D5%-0.45% NACL 1,000 ML IV SCH (17:41)
[2018-04-14 17:42] VITALS: BP 150/84
[2018-04-14 20:00] VITALS: BP 150/70
[2018-04-14] MEDS: SODIUM CHLORIDE FLUSH 10ML SYR IVF SCH (21:51)
[2018-04-14] MEDS ORDERED: CATHFLO-ALTEPLASE 2 MG/2 ML CATHFLUSH ONE (22:30)
[2018-04-15] MEDS ORDERED: CATHFLO-ALTEPLASE 2 MG/2 ML CATHFLUSH ONE (00:30)
[2018-04-15 00:37] VITALS: BP 133/70
[2018-04-15] MEDS: OXYcodone IR 5MG TABLET PO PRN (00:51)
[2018-04-15] MEDS: INSULIN REGULAR, HUMAN 100 UNITS/ML, 3ML HIGH DOSE SS SQ-INSULIN SCH ×4 (05:30→23:00)
[2018-04-15 05:33] VITALS: BP 148/71
[2018-04-15] MEDS: D5%-0.45% NACL 1,000 ML IV SCH ×2 (05:38→18:43)
[2018-04-15] MEDS: AMPICILLIN/SULBACTAM 3 GM in SODIUM CHLORIDE 0.9% 100 ML IV SCH ×4 (05:41→23:46)
[2018-04-15] MEDS: CARVEDILOL 3.125 MG TABLET PO SCH ×2 (05:55→18:45)
[2018-04-15] MEDS: LEVOTHYROXINE 50 MCG TABLET PO SCH (05:55)
[2018-04-15] MEDS: HEPARIN 5,000 UNITS/ML, 1ML SQ SCH ×3 (05:55→21:44)
[2018-04-15 06:24] LABS: HCT (SEDRATE) 25.8 % (34.6-47.8)
[2018-04-15 06:26] LABS: MEAN CORPUSCULAR HEMOGLOBIN 28.1 pg (27.0-34.8); MEAN CORPUSCULAR HGB CONC 32.1 g/dL (32.4-35.8); MEAN CORPUSCULAR VOLUME 87.7 fL (80-100); MEAN PLATELET VOLUME 9.1 fL (7.4-10.4); PLATELET COUNT 189 x10^3/uL (130-400); RED BLOOD COUNT 2.93 x10^6/uL (3.82-5.3); RED CELL DISTRIBUTION WIDTH 16.2 % (9.6-15.2)
[2018-04-15 06:37] LABS: ALANINE AMINOTRANSFERASE 12 U/L (12-78); ALBUMIN 1.8 g/dL (3.4-5.0); ANION GAP 8 mmol/L (5-15); CALCIUM 7.9 mg/dL (8.5-10.1); CHLORIDE 111 mmol/L (98-107); CREATININE 0.97 mg/dL (0.55-1.02)
[2018-04-15 06:41] LABS: MD YES
[2018-04-15 06:43] LABS: BANDS%(MANUAL) 21 % (0-7); LYMPH#(MANUAL) 0.25 x10^3/uL (1-3.4); LYMPHS% (MANUAL) 4 % (22-44); MONOS#(MANUAL) 0.25 x10^3/uL (0.3-2.7); MONOS% (MANUAL) 4 % (2-9); MYELOCYTES# (MANUAL) 0.06 x10^3/uL (0-0); MYELOCYTES% (MANUAL) 1 % (0-0); SEG#(MANUAL) 4.34 x10^3/uL (1.8-6.8); SEGS% (MANUAL) 70 % (42-75)
[2018-04-15 06:45] LABS: ALKALINE PHOSPHATASE 74 U/L (45-117); BILIRUBIN,TOTAL 0.4 mg/dL (0.2-1.0); TOTAL PROTEIN 4.7 g/dL (6.4-8.2)
[2018-04-15 06:46] LABS: <PLATELET ESTIMATE> ADEQUATE; <PLT MORPHOLOGY> NORMAL PLT MORPH; ANISOCYTOSIS 1+; POLYCHROMASIA 1+
[2018-04-15 07:37] VITALS: BP 135/71
[2018-04-15] MEDS: SODIUM CHLORIDE FLUSH 10ML SYR IVF SCH ×2 (09:00→20:10)
[2018-04-15] MEDS: FLUDROCORTISONE 0.1 MG TABLET PO SCH (09:00)
[2018-04-15] MEDS: FENOFIBRATE 145 MG TABLET PO SCH (09:00)
[2018-04-15] MEDS: PANTOPRAZOLE 40 MG IV IV SCH (11:57)
[2018-04-15] MEDS: BUPROPION SR 150 MG TABLET PO SCH (11:58)
[2018-04-15] MEDS: CALCIUM CARBONATE 500 MG TAB.CHEW PO SCH (11:58)
[2018-04-15] MEDS: SERTRALINE 100MG TABLET PO SCH (11:59)
[2018-04-15] MEDS: CHOLECALCIFEROL 400 UNITS TABLET PO SCH (11:59)
[2018-04-15] MEDS: MULTIVITAMIN 1 TABLET PO SCH (11:59)
[2018-04-15 13:59] VITALS: BP 132/76
[2018-04-15 18:34] VITALS: BP 153/72
[2018-04-15] MEDS: ACETAMINOPHEN 325 MG TABLET PO PRN (20:10)
[2018-04-15 23:50] VITALS: BP 157/76
[2018-04-16] MEDS ORDERED: CATHFLO-ALTEPLASE 2 MG/2 ML CATHFLUSH ONE (03:00)
[2018-04-16] MEDS: INSULIN REGULAR, HUMAN 100 UNITS/ML, 3ML HIGH DOSE SS SQ-INSULIN SCH ×4 (05:00→23:00)
[2018-04-16 05:58] LABS: MEAN CORPUSCULAR HEMOGLOBIN 29.6 pg (27.0-34.8); MEAN CORPUSCULAR HGB CONC 33.2 g/dL (32.4-35.8); MEAN CORPUSCULAR VOLUME 89.1 fL (80-100); MEAN PLATELET VOLUME 9.7 fL (7.4-10.4); PLATELET COUNT 159 x10^3/uL (130-400)
[2018-04-16] MEDS: CARVEDILOL 3.125 MG TABLET PO SCH ×2 (06:04→17:21)
[2018-04-16] MEDS: AMPICILLIN/SULBACTAM 3 GM in SODIUM CHLORIDE 0.9% 100 ML IV SCH ×4 (06:04→23:05)
[2018-04-16] MEDS: HEPARIN 5,000 UNITS/ML, 1ML SQ SCH ×3 (06:04→21:19)
[2018-04-16 06:20] LABS: MD YES
[2018-04-16 06:22] LABS: ANISOCYTOSIS 1+; BAND#(MANUAL) 0.34 x10^3/uL; BANDS%(MANUAL) 8 % (0-7); LYMPH#(MANUAL) 0.25 x10^3/uL (1-3.4); LYMPHS% (MANUAL) 6 % (22-44); MONOS#(MANUAL) 0.04 x10^3/uL (0.3-2.7); MONOS% (MANUAL) 1 % (2-9); POLYCHROMASIA 1+; SEG#(MANUAL) 3.57 x10^3/uL (1.8-6.8); SEGS% (MANUAL) 85 % (42-75)
[2018-04-16 06:23] LABS: <PLATELET ESTIMATE> ADEQUATE; <PLT MORPHOLOGY> NORMAL PLT MORPH
[2018-04-16] MEDS: LEVOTHYROXINE 50 MCG TABLET PO SCH (06:29)
[2018-04-16] MEDS: ACETAMINOPHEN 325 MG TABLET PO PRN (06:32)
[2018-04-16] MEDS: OXYcodone IR 5MG TABLET PO PRN ×2 (06:37→17:33)
[2018-04-16 06:47] VITALS: BP 150/75
[2018-04-16 07:28] LABS: ALBUMIN 1.8 g/dL (3.4-5.0); ANION GAP 3 mmol/L (5-15); CALCIUM 8.1 mg/dL (8.5-10.1); CHLORIDE 114 mmol/L (98-107)
[2018-04-16 07:34] LABS: % IRON SATURATION 49 % (20-55); ALANINE AMINOTRANSFERASE 11 U/L (12-78); ALKALINE PHOSPHATASE 72 U/L (45-117); BILIRUBIN,TOTAL 0.4 mg/dL (0.2-1.0); CREATININE 0.86 mg/dL (0.55-1.02); IRON LEVEL 47 mcg/dL (50-170); TOTAL IRON BINDING CAPACITY 95 mcg/dL (250-450); TOTAL PROTEIN 4.8 g/dL (6.4-8.2)
[2018-04-16] MEDS ORDERED: FLUD0.1T PO (08:41)
[2018-04-16] MEDS ORDERED: PRED10TA PO (08:41)
[2018-04-16] MEDS ORDERED: PRED20TA PO (08:41)
[2018-04-16] MEDS ORDERED: AMPI3VIA IV (08:41)
[2018-04-16] MEDS ORDERED: MAGNESIUM SULFATE PMX 4GM/100M 100 ML IV ONE (09:00)
[2018-04-16] MEDS ORDERED: MAGNESIUM SULFATE 4 GM in SODIUM CHLORIDE 0.9% 100 ML IV ONE (09:00)
[2018-04-16] MEDS: SODIUM CHLORIDE FLUSH 10ML SYR IVF SCH ×2 (10:06→21:20)
[2018-04-16] MEDS: PANTOPRAZOLE 40 MG IV IV SCH (10:06)
[2018-04-16] MEDS: CALCIUM CARBONATE 500 MG TAB.CHEW PO SCH (10:07)
[2018-04-16] MEDS: FENOFIBRATE 145 MG TABLET PO SCH (10:07)
[2018-04-16] MEDS: MULTIVITAMIN 1 TABLET PO SCH (10:07)
[2018-04-16] MEDS: BUPROPION SR 150 MG TABLET PO SCH (10:07)
[2018-04-16] MEDS: FLUDROCORTISONE 0.1 MG TABLET PO SCH (10:07)
[2018-04-16] MEDS: SERTRALINE 100MG TABLET PO SCH (10:07)
[2018-04-16] MEDS: CHOLECALCIFEROL 400 UNITS TABLET PO SCH (10:07)
[2018-04-16 12:53] VITALS: BP 148/68
[2018-04-16] MEDS ORDERED: D5%-0.45% NACL 1,000 ML IV SCH (15:30)
[2018-04-16] MEDS: SODIUM CHLORIDE 0.45% 1,000 ML IV SCH (17:20)
[2018-04-16] MEDS: ERGOCALCIFEROL 50,000 UNIT CAPSULE PO SCH (17:20)
[2018-04-16 19:57] VITALS: BP 147/74
[2018-04-16 23:18] VITALS: BP 153/77
[2018-04-17] MEDS: ACETAMINOPHEN 325 MG TABLET PO PRN (04:20)
[2018-04-17] MEDS: INSULIN REGULAR, HUMAN 100 UNITS/ML, 3ML HIGH DOSE SS SQ-INSULIN SCH ×2 (05:00→11:00)
[2018-04-17] MEDS: CARVEDILOL 3.125 MG TABLET PO SCH (05:27)
[2018-04-17] MEDS: LEVOTHYROXINE 50 MCG TABLET PO SCH (05:27)
[2018-04-17 05:30] VITALS: BP 139/76
[2018-04-17] MEDS: HEPARIN 5,000 UNITS/ML, 1ML SQ SCH ×3 (05:30→13:52)
[2018-04-17] MEDS: AMPICILLIN/SULBACTAM 3 GM in SODIUM CHLORIDE 0.9% 100 ML IV SCH ×2 (05:38→11:57)
[2018-04-17 06:07] LABS: BASOPHILS # (AUTO) 0.01 x10^3/uL (0-0.1); BASOPHILS % (AUTO) 0 % (0-1); EOSINOPHILS # (AUTO) 0.02 x10^3/uL (0-0.4); EOSINOPHILS % (AUTO) 0 % (1-7); LYMPHOCYTES % (AUTO) 8 % (22-44); MD NO; MEAN CORPUSCULAR HEMOGLOBIN 29.5 pg (27.0-34.8); MEAN CORPUSCULAR HGB CONC 33.5 g/dL (32.4-35.8); MEAN PLATELET VOLUME 9.4 fL (7.4-10.4); MONOCYTES % (AUTO) 5 % (2-9); NEUTROPHILS # (AUTO) 5.18 x10^3/uL (1.8-6.8); NEUTROPHILS % (AUTO) 86 % (42-75); PLATELET COUNT 203 x10^3/uL (130-400); RED BLOOD COUNT 2.69 x10^6/uL (3.82-5.3); RED CELL DISTRIBUTION WIDTH 15.5 % (9.6-15.2)
[2018-04-17 06:13] LABS: RED BLOOD COUNT 2.69 x10^6/uL (3.82-5.3)
[2018-04-17 06:19] LABS: ABSOLUTE RETICS # 0.076 x10^6/uL (0.5-2.5); RETICULOCYTE COUNT % 2.87 % (0.5-1.5)
[2018-04-17 06:26] LABS: CHLORIDE 115 mmol/L (98-107)
[2018-04-17 06:37] LABS: ALANINE AMINOTRANSFERASE 10 U/L (12-78); ALBUMIN 1.8 g/dL (3.4-5.0); ALKALINE PHOSPHATASE 74 U/L (45-117); ANION GAP 5 mmol/L (5-15); BILIRUBIN,TOTAL 0.4 mg/dL (0.2-1.0); CALCIUM 8.1 mg/dL (8.5-10.1); CREATININE 0.83 mg/dL (0.55-1.02); TOTAL PROTEIN 4.6 g/dL (6.4-8.2)
[2018-04-17 07:51] VITALS: BP 147/78
[2018-04-17] MEDS: PANTOPRAZOLE 40 MG IV IV SCH (08:07)
[2018-04-17] MEDS: CALCIUM CARBONATE 500 MG TAB.CHEW PO SCH (08:10)
[2018-04-17] MEDS: MULTIVITAMIN 1 TABLET PO SCH (08:10)
[2018-04-17] MEDS: CHOLECALCIFEROL 400 UNITS TABLET PO SCH (08:10)
[2018-04-17] MEDS: FENOFIBRATE 145 MG TABLET PO SCH (08:10)
[2018-04-17] MEDS: FLUDROCORTISONE 0.1 MG TABLET PO SCH (08:10)
[2018-04-17] MEDS: SERTRALINE 100MG TABLET PO SCH (08:11)
[2018-04-17] MEDS: SODIUM CHLORIDE 0.45% 1,000 ML IV SCH (08:11)
[2018-04-17] MEDS: BUPROPION SR 150 MG TABLET PO SCH (08:11)
[2018-04-17] MEDS: SODIUM CHLORIDE FLUSH 10ML SYR IVF SCH (08:11)
[2018-04-17] MEDS ORDERED: SILVER NITRATE STICK TP ONE (09:30)
[2018-04-17 13:15] VITALS: BP 154/73
== END 2018-04-17 18:12 | DRG 614 ==
LOC: ORIP 10:10 → 4NOR 18:07 → CCU 03-26 00:18 → 4NOR 04-04 17:53
PROVIDERS: ADMIT Surgery; ATTEND Hospitalist
PROC: 03HY32Z Insertion of Monitoring Device into Upper Artery, Percutaneous Approach (ICD-10-PCS; 2018-03-18)
PROC: 4A133B1 Monitoring of Arterial Pressure, Peripheral, Percutaneous Approach (ICD-10-PCS; 2018-03-18)
PROC: 4A133J1 Monitoring of Arterial Pulse, Peripheral, Percutaneous Approach (ICD-10-PCS; 2018-03-18)
PROC: 0GT20ZZ Resection of Left Adrenal Gland, Open Approach (ICD-10-PCS; principal; 2018-03-18 12:45)
PROC: 0WJG4ZZ Inspection of Peritoneal Cavity, Percutaneous Endoscopic Approach (ICD-10-PCS; 2018-03-25)
PROC: 0DTF0ZZ Resection of Right Large Intestine, Open Approach (ICD-10-PCS; 2018-03-25)
PROC: 5A1955Z Respiratory Ventilation, Greater than 96 Consecutive Hours (ICD-10-PCS; 2018-03-25)
PROC: 0BH18EZ Insertion of Endotracheal Airway into Trachea, Via Natural or Artificial Opening Endoscopic (ICD-10-PCS; 2018-03-25)
PROC: 02HV33Z Insertion of Infusion Device into Superior Vena Cava, Percutaneous Approach (ICD-10-PCS; 2018-03-25)
PROC: B548ZZA Ultrasonography of Superior Vena Cava, Guidance (ICD-10-PCS; 2018-03-25)
PROC: 30233N1 Transfusion of Nonautologous Red Blood Cells into Peripheral Vein, Percutaneous Approach (ICD-10-PCS; 2018-03-26)
PROC: 0T9B70Z Drainage of Bladder with Drainage Device, Via Natural or Artificial Opening (ICD-10-PCS; 2018-03-26)
PROC: 0D1B0Z4 Bypass Ileum to Cutaneous, Open Approach (ICD-10-PCS; 2018-03-27)
PROC: 0DBB0ZZ Excision of Ileum, Open Approach (ICD-10-PCS; 2018-04-08)
DX: C79.72 Secondary malignant neoplasm of left adrenal gland (principal); J96.01 Acute respiratory failure with hypoxia; K63.1 Perforation of intestine (nontraumatic); K66.1 Hemoperitoneum; A41.9 Sepsis, unspecified organism; R65.21 Severe sepsis with septic shock; K72.00 Acute and subacute hepatic failure without coma; R53.2 Functional quadriplegia; J15.212 Pneumonia due to Methicillin resistant Staphylococcus aureus; E43 Unspecified severe protein-calorie malnutrition; N17.0 Acute kidney failure with tubular necrosis; I71.00 Dissection of unspecified site of aorta; T81.31XA Disruption of external operation (surgical) wound, not elsewhere classified, initial encounter; K94.19 Other complications of enterostomy; C64.1 Malignant neoplasm of right kidney, except renal pelvis; E27.40 Unspecified adrenocortical insufficiency; N18.4 Chronic kidney disease, stage 4 (severe); D62 Acute posthemorrhagic anemia; E87.0 Hyperosmolality and hypernatremia; E87.2 Acidosis; K56.7 Ileus, unspecified; R18.8 Other ascites; C64.2 Malignant neoplasm of left kidney, except renal pelvis; Y83.8 Other surgical procedures as the cause of abnormal reaction of the patient, or of later complication, without mention of misadventure at the time of the procedure; Y92.238 Other place in hospital as the place of occurrence of the external cause; Z53.31 Laparoscopic surgical procedure converted to open procedure; E11.22 Type 2 diabetes mellitus with diabetic chronic kidney disease; E55.9 Vitamin D deficiency, unspecified; E87.8 Other disorders of electrolyte and fluid balance, not elsewhere classified; E87.6 Hypokalemia; E87.5 Hyperkalemia; E89.0 Postprocedural hypothyroidism; F32.9 Major depressive disorder, single episode, unspecified; I16.0 Hypertensive urgency; Z82.49 Family history of ischemic heart disease and other diseases of the circulatory system; I12.9 Hypertensive chronic kidney disease with stage 1 through stage 4 chronic kidney disease, or unspecified chronic kidney disease; K58.9 Irritable bowel syndrome, unspecified; K66.0 Peritoneal adhesions (postprocedural) (postinfection); Z79.4 Long term (current) use of insulin; Z79.52 Long term (current) use of systemic steroids; Z80.0 Family history of malignant neoplasm of digestive organs; Z80.1 Family history of malignant neoplasm of trachea, bronchus and lung; Z85.3 Personal history of malignant neoplasm of breast; Z86.14 Personal history of Methicillin resistant Staphylococcus aureus infection; Z86.73 Personal history of transient ischemic attack (TIA), and cerebral infarction without residual deficits; Z87.891 Personal history of nicotine dependence; Z87.01 Personal history of pneumonia (recurrent); Z90.13 Acquired absence of bilateral breasts and nipples; Z90.5 Acquired absence of kidney; Z90.710 Acquired absence of both cervix and uterus; Z92.3 Personal history of irradiation; Z68.32 Body mass index [BMI] 32.0-32.9, adult
CPT/HCPCS: 36415; 36569; 36600; 71045; 74018; 74022; 74176; 74177; 74230; 76937; 77001; 80048; 80053; 80069; 81001; 82040; 82274; 82306; 82607; 82728; 82803; 82962; 83540; 83550; 83605; 83735; 83880; 83970; 84100; 84134; 84145; 84439; 84443; 84478; 84481; 84550; 85025; 85045; 85384; 85610; 85651; 85730; 86140; 86850; 86900; 86923; 87040; 87070; 87077; 87081; 87086; 87186; 87205; 88305; 88307; 88341; 88342; 93005; 94002; 94003; 94150; 97164; C1729; G0378; J0171; J0295; J0610; J0690; J1100; J1170; J1644; J1756; J1815; J1940; J2020; J2175; J2185; J2248; J2250; J2270; J2405; J2543; J2704; J2997; J3010; J3480; J3490; J7042; J7060; J7070; P9045; P9047; Q0162; C1751; C1760; C9113; G0461; J0330; J0360; J1720; J2370; J3420; J3475; J7030; J7040; J7050; J7120; J7512; P9016; S0074

== ENCOUNTER 2018-04-19 21:17 | Inpatient (IN) | payer MEDICARE, OTHER ==
[~2018-04-19] VITALS: Ht 160 cm; Wt 74.1 kg
[~2018-04-19 21:17] MED LIST changes: +AMPI3VIA IV; -BUPIVACAINE/PF-EPI 0.5% 1:200K ONE; +FLUD0.1T PO; +PRED10TA PO; +PRED20TA PO
[2018-04-19] MEDS ORDERED: ONDANSETRON 2MG/ML, 2ML IVPush PRN (21:30)
[2018-04-19] MEDS ORDERED: GUAIFENESIN/DM 200-20MG, 10ML UDC PO PRN (21:30)
[2018-04-19] MEDS ORDERED: ACETAMINOPHEN 325 MG TABLET PO PRN (21:30)
[2018-04-19] MEDS ORDERED: SODIUM CHLORIDE 0.9% 1,000 ML IV SCH (21:30)
[2018-04-19] MEDS ORDERED: AMPICILLIN SODIUM IV SCH (21:30)
[2018-04-19] MEDS ORDERED: SULBACTAM NA IV SCH (21:30)
[2018-04-19] MEDS: AMPICILLIN/SULBACTAM 3 GM in SODIUM CHLORIDE 0.9% 100 ML IV SCH (22:38)
[2018-04-19 23:10] VITALS: BP 138/80
[2018-04-20] MEDS: ACETAMINOPHEN 500 MG TABLET PO PRN ×2 (00:04→08:54)
[2018-04-20 02:54] VITALS: BP 114/74
[2018-04-20] MEDS: AMPICILLIN/SULBACTAM 3 GM in SODIUM CHLORIDE 0.9% 100 ML IV SCH ×3 (05:13→17:34)
[2018-04-20 05:36] LABS: CALCIUM 8.3 mg/dL (8.5-10.1); CHLORIDE 121 mmol/L (98-107)
[2018-04-20 05:41] LABS: ALANINE AMINOTRANSFERASE 10 U/L (12-78); ALBUMIN 1.8 g/dL (3.4-5.0); ALKALINE PHOSPHATASE 81 U/L (45-117); ANION GAP 7 mmol/L (5-15); BASOPHILS % (AUTO) 0 % (0-1); BILIRUBIN,TOTAL 0.4 mg/dL (0.2-1.0); CREATININE 0.88 mg/dL (0.55-1.02); EOSINOPHILS # (AUTO) 0.02 x10^3/uL (0-0.4); EOSINOPHILS % (AUTO) 0 % (1-7); LYMPHOCYTES # (AUTO) 0.66 x10^3/uL (1-3.4); LYMPHOCYTES % (AUTO) 6 % (22-44); MD NO; MEAN CORPUSCULAR HEMOGLOBIN 29.5 pg (27.0-34.8); MEAN CORPUSCULAR HGB CONC 33.3 g/dL (32.4-35.8); MEAN CORPUSCULAR VOLUME 88.5 fL (80-100); MONOCYTES # (AUTO) 0.41 x10^3/uL (0.2-0.8); MONOCYTES % (AUTO) 4 % (2-9); NEUTROPHILS # (AUTO) 9.92 x10^3/uL (1.8-6.8); NEUTROPHILS % (AUTO) 90 % (42-75); PLATELET COUNT 217 x10^3/uL (130-400); RED BLOOD COUNT 2.67 x10^6/uL (3.82-5.3); RED CELL DISTRIBUTION WIDTH 16.3 % (9.6-15.2); TOTAL PROTEIN 4.8 g/dL (6.4-8.2)
[2018-04-20] MEDS: LIOTHYRONINE 5 MCG TABLET PO SCH (08:24)
[2018-04-20] MEDS: FLUDROCORTISONE 0.1 MG TABLET PO SCH (08:24)
[2018-04-20] MEDS: MAGNESIUM OXIDE 400 MG TABLET PO SCH (08:24)
[2018-04-20] MEDS: SERTRALINE 100MG TABLET PO SCH (08:24)
[2018-04-20] MEDS: MULTIVITAMIN 1 TABLET PO SCH (08:24)
[2018-04-20] MEDS: DEXTROSE 5% 1,000 ML IV SCH (08:25)
[2018-04-20] MEDS: CALCIUM CARBONATE 500 MG TAB.CHEW PO SCH (08:26)
[2018-04-20] MEDS: LEVOTHYROXINE 50 MCG TABLET PO SCH (08:28)
[2018-04-20 08:36] VITALS: BP 119/78
[2018-04-20] MEDS: CHOLECALCIFEROL 5,000u TAB PO SCH (08:54)
[2018-04-20] MEDS ORDERED: CALCIUM CARBONATE 500 MG TABLET PO SCH (09:00)
[2018-04-20] MEDS ORDERED: TEMPLATE NON-FORMULARY MED. (Bupropion Hcl** (Bupropion Xl**) 150 MG) HOMEMEDPO SCH (09:00)
[2018-04-20] MEDS ORDERED: GLUCOSAMINE HCL PO SCH (09:00)
[2018-04-20] MEDS ORDERED: [UNRECOGNIZED DRUG - OTHER] PO SCH (09:00)
[2018-04-20 12:36] VITALS: BP 123/82
[2018-04-20] MEDS ORDERED: MIDAZOLAM 1 MG/ML, 2ML ONE (18:53)
[2018-04-20] MEDS ORDERED: FENTANYL PF 250 MCG/5ML ONE (18:53)
[2018-04-20] MEDS ORDERED: EPHEDRINE 50 MG/ML, 1ML ONE (19:50)
[2018-04-20] MEDS ORDERED: SUCCINYLCHOLINE 20 MG/ML, 10ML ONE (19:50)
[2018-04-20] MEDS ORDERED: ONDANSETRON 2MG/ML, 2ML ONE (19:50)
[2018-04-20] MEDS ORDERED: PROPOFOL 10 MG/ML, 20ML ONE (19:50)
[2018-04-20] MEDS ORDERED: GLYCOPYRROLATE 0.2MG/1ML, 5ML ONE (19:50)
[2018-04-20] MEDS ORDERED: ROCURONIUM 10MG/ML,5ML ONE (19:50)
[2018-04-20] MEDS ORDERED: PROMETHAZINE 12.5 MG SUPP PR PRN (20:30)
[2018-04-20] MEDS ORDERED: LABETALOL 5MG/ML, 20ML IV PRN (20:30)
[2018-04-20] MEDS ORDERED: hydrALAzine 20 MG/ML, 1ML IV PRN (20:30)
[2018-04-20] MEDS ORDERED: OXYcodone 5 MG/5 ML ORAL.SOL UDC PO PRN (20:30)
[2018-04-20] MEDS ORDERED: ONDANSETRON 2MG/ML, 2ML IV PRN (20:30)
[2018-04-20] MEDS ORDERED: ONDANSETRON ODT 8 MG PO PRN (20:30)
[2018-04-20] MEDS ORDERED: HYDROmorphone 1 MG/ML, 1ML IV PRN (20:30)
[2018-04-20] MEDS ORDERED: FENTANYL PF 100 MCG/2ML ONE (20:46)
[2018-04-20] MEDS: FENTANYL PF 100 MCG/2ML IV PRN ×4 (21:21→21:50)
[2018-04-20] MEDS ORDERED: ACETAMINOPHEN 650 MG/20.3 ML UDC ONE (21:35)
[2018-04-20] MEDS ORDERED: ACETAMINOPHEN 325 MG TABLET PO PRN (22:00)
[2018-04-20 22:40] VITALS: BP 108/66
[2018-04-21] VITALS (10 sets, daily range): BP systolic 113–135; BP diastolic 65–72
[2018-04-21] MEDS: DEXTROSE 5% 1,000 ML IV SCH ×3 (00:03→20:42)
[2018-04-21] MEDS: AMPICILLIN/SULBACTAM 3 GM in SODIUM CHLORIDE 0.9% 100 ML IV SCH ×4 (00:03→17:17)
[2018-04-21] MEDS: ACETAMINOPHEN 500 MG TABLET PO PRN ×2 (04:00→17:29)
[2018-04-21 08:52] LABS: ALANINE AMINOTRANSFERASE 11 U/L (12-78); ALBUMIN 1.4 g/dL (3.4-5.0); ANION GAP 10 mmol/L (5-15); CALCIUM 7.2 mg/dL (8.5-10.1); CHLORIDE 105 mmol/L (98-107); CREATININE 0.94 mg/dL (0.55-1.02)
[2018-04-21 08:54] LABS: ALKALINE PHOSPHATASE 74 U/L (45-117); BILIRUBIN,TOTAL 0.2 mg/dL (0.2-1.0); TOTAL PROTEIN 4.2 g/dL (6.4-8.2)
[2018-04-21 08:59] LABS: MEAN CORPUSCULAR HGB CONC 32.6 g/dL (32.4-35.8); MEAN CORPUSCULAR VOLUME 88.7 fL (80-100); MEAN PLATELET VOLUME 9.3 fL (7.4-10.4); PLATELET COUNT 218 x10^3/uL (130-400); RED BLOOD COUNT 2.31 x10^6/uL (3.82-5.3); RED CELL DISTRIBUTION WIDTH 16.8 % (9.6-15.2)
[2018-04-21] MEDS: BUPROPION SR 150 MG TABLET PO SCH (09:00)
[2018-04-21] MEDS: CALCIUM CARBONATE 500 MG TAB.CHEW PO SCH (09:00)
[2018-04-21 09:09] LABS: MD YES
[2018-04-21 09:10] LABS: BAND#(MANUAL) 0.47 x10^3/uL; BANDS%(MANUAL) 5 % (0-7); LYMPH#(MANUAL) 0.93 x10^3/uL (1-3.4); LYMPHS% (MANUAL) 10 % (22-44); MONOS#(MANUAL) 0.19 x10^3/uL (0.3-2.7); MONOS% (MANUAL) 2 % (2-9); SEG#(MANUAL) 7.72 x10^3/uL (1.8-6.8); SEGS% (MANUAL) 83 % (42-75)
[2018-04-21 09:11] LABS: <PLATELET ESTIMATE> ADEQUATE; <PLT MORPHOLOGY> NORMAL PLT MORPH; ANISOCYTOSIS 1+; POLYCHROMASIA 1+
[2018-04-21] MEDS: LIOTHYRONINE 5 MCG TABLET PO SCH (09:35)
[2018-04-21] MEDS: FLUDROCORTISONE 0.1 MG TABLET PO SCH (09:35)
[2018-04-21] MEDS: MULTIVITAMIN 1 TABLET PO SCH (09:36)
[2018-04-21] MEDS: CHOLECALCIFEROL 5,000u TAB PO SCH (09:36)
[2018-04-21] MEDS: SERTRALINE 100MG TABLET PO SCH (09:36)
[2018-04-21] MEDS: LEVOTHYROXINE 50 MCG TABLET PO SCH (09:38)
[2018-04-21] MEDS: MAGNESIUM OXIDE 400 MG TABLET PO SCH (09:39)
[2018-04-21] MEDS ORDERED: MAGNESIUM SULFATE PMX 2GM/50ML 50 ML IV ONE (14:00)
[2018-04-21] MEDS ORDERED: POTASSIUM PHOSPHATE 44 MEQ in SODIUM CHLORIDE 0.9% 500 ML IV ONE (14:00)
[2018-04-21] MEDS: INSULIN LISPRO 100 UNITS/ML, PEN SQ-INSULIN SCH ×2 (16:00→21:18)
[2018-04-21] MEDS ORDERED: morphine SULFATE 10 MG/ML, 1ML ONE (19:41)
[2018-04-21] MEDS ORDERED: morphine SULFATE 10 MG/ML, 1ML IVPush ONE (20:00)
[2018-04-22] MEDS: AMPICILLIN/SULBACTAM 3 GM in SODIUM CHLORIDE 0.9% 100 ML IV SCH ×4 (00:18→17:46)
[2018-04-22 02:52] VITALS: BP 153/77
[2018-04-22] MEDS: DEXTROSE 5% 1,000 ML IV SCH ×2 (06:13→16:58)
[2018-04-22 06:18] LABS: MEAN CORPUSCULAR HEMOGLOBIN 29.5 pg (27.0-34.8); MEAN CORPUSCULAR HGB CONC 33.8 g/dL (32.4-35.8); MEAN CORPUSCULAR VOLUME 87.5 fL (80-100); MEAN PLATELET VOLUME 8.9 fL (7.4-10.4); PLATELET COUNT 196 x10^3/uL (130-400); RED BLOOD COUNT 2.91 x10^6/uL (3.82-5.3); RED CELL DISTRIBUTION WIDTH 16.9 % (9.6-15.2)
[2018-04-22 06:20] LABS: CHLORIDE 113 mmol/L (98-107)
[2018-04-22 06:30] LABS: ALANINE AMINOTRANSFERASE 11 U/L (12-78); ALBUMIN 1.6 g/dL (3.4-5.0); ALKALINE PHOSPHATASE 91 U/L (45-117); ANION GAP 8 mmol/L (5-15); BILIRUBIN,TOTAL 0.4 mg/dL (0.2-1.0); CALCIUM 7.9 mg/dL (8.5-10.1); CREATININE 0.74 mg/dL (0.55-1.02); TOTAL PROTEIN 4.7 g/dL (6.4-8.2)
[2018-04-22 06:36] LABS: MD YES
[2018-04-22 06:39] LABS: BAND#(MANUAL) 0.87 x10^3/uL; BANDS%(MANUAL) 10 % (0-7); LYMPH#(MANUAL) 0.44 x10^3/uL (1-3.4); LYMPHS% (MANUAL) 5 % (22-44); MONOS#(MANUAL) 0.26 x10^3/uL (0.3-2.7); MONOS% (MANUAL) 3 % (2-9); MYELOCYTES# (MANUAL) 0.26 x10^3/uL (0-0); MYELOCYTES% (MANUAL) 3 % (0-0); SEG#(MANUAL) 6.87 x10^3/uL (1.8-6.8); SEGS% (MANUAL) 79 % (42-75)
[2018-04-22 06:40] LABS: ANISOCYTOSIS 1+; POLYCHROMASIA 1+; TOXIC GRAN 1+
[2018-04-22 06:41] LABS: <PLATELET ESTIMATE> ADEQUATE; <PLT MORPHOLOGY> NORMAL PLT MORPH
[2018-04-22] MEDS: INSULIN LISPRO 100 UNITS/ML, PEN SQ-INSULIN SCH ×4 (07:00→21:00)
[2018-04-22 07:51] VITALS: BP 134/69
[2018-04-22] MEDS: CALCIUM CARBONATE 500 MG TAB.CHEW PO SCH (09:00)
[2018-04-22] MEDS: SERTRALINE 100MG TABLET PO SCH (09:16)
[2018-04-22] MEDS: FLUDROCORTISONE 0.1 MG TABLET PO SCH (09:17)
[2018-04-22] MEDS: LIOTHYRONINE 5 MCG TABLET PO SCH (09:17)
[2018-04-22] MEDS: LEVOTHYROXINE 50 MCG TABLET PO SCH (09:19)
[2018-04-22] MEDS: MULTIVITAMIN 1 TABLET PO SCH (09:20)
[2018-04-22] MEDS: MAGNESIUM OXIDE 400 MG TABLET PO SCH (09:20)
[2018-04-22] MEDS: CHOLECALCIFEROL 5,000u TAB PO SCH (09:20)
[2018-04-22] MEDS: BUPROPION SR 150 MG TABLET PO SCH (09:21)
[2018-04-22] MEDS ORDERED: TPN PER PHARMACY MC PRN (12:30)
[2018-04-22] MEDS ORDERED: FLUCONAZOLE 200 MG/100 ML 100 ML IV SCH (13:00)
[2018-04-22 13:51] VITALS: BP 153/71
[2018-04-22] MEDS: FILTER, DISP 1.2 MICRON FOR TPN/PVN IV PRN (16:33)
[2018-04-22] MEDS ORDERED: DEXTROSE 10% 500 ML IV PRN (17:00)
[2018-04-22] MEDS ORDERED: DEXTROSE 50%, 50ML SYRINGE IVPush PRN (17:00)
[2018-04-22] MEDS ORDERED: DEXTROSE 70% IV SCH (17:00)
[2018-04-22] MEDS ORDERED: SMOF TPN IV SCH (17:00)
[2018-04-22] MEDS ORDERED: [UNRECOGNIZED DRUG - OTHER] IV SCH (17:00)
[2018-04-22] MEDS ORDERED: AMINO ACID 10% IV SCH (17:00)
[2018-04-22] MEDS ORDERED: FAT EMUL IV SCH (17:00)
[2018-04-22] MEDS ORDERED: FENTANYL PF 250 MCG/5ML ONE (18:26)
[2018-04-22] MEDS ORDERED: ROCURONIUM 10MG/ML,5ML ONE (18:35)
[2018-04-22] MEDS ORDERED: SILVER SULF. CRM 1% , 25GM ONE (19:21)
[2018-04-22] MEDS ORDERED: FENTANYL PF 100 MCG/2ML ONE (20:01)
[2018-04-22] MEDS ORDERED: ACETAMINOPHEN 650 MG/20.3 ML UDC ONE (20:09)
[2018-04-22] MEDS ORDERED: HYDROmorphone 2 MG/ML, 1ML ONE (20:14)
[2018-04-22] MEDS ORDERED: hydrALAzine 20 MG/ML, 1ML IV PRN (20:30)
[2018-04-22] MEDS ORDERED: ACETAMINOPHEN 325 MG TABLET PO PRN (20:30)
[2018-04-22] MEDS ORDERED: ALBUTEROL SULFATE 2.5 MG/3 ML NPPB PRN (20:30)
[2018-04-22] MEDS ORDERED: LABETALOL 5MG/ML, 20ML IV PRN (20:30)
[2018-04-22] MEDS ORDERED: FENTANYL PF 100 MCG/2ML IV PRN (20:30)
[2018-04-22] MEDS ORDERED: HYDROmorphone 1 MG/ML, 1ML IV PRN (20:30)
[2018-04-22] MEDS ORDERED: OXYcodone 5 MG/5 ML ORAL.SOL UDC PO PRN (20:30)
[2018-04-22] MEDS ORDERED: ACETAMINOPHEN 325 MG TABLET ONE (20:51)
[2018-04-23 00:08] VITALS: BP 107/67
[2018-04-23] MEDS: AMPICILLIN/SULBACTAM 3 GM in SODIUM CHLORIDE 0.9% 100 ML IV SCH ×4 (00:35→17:25)
[2018-04-23 04:08] VITALS: BP 113/66
[2018-04-23] MEDS: ACETAMINOPHEN 500 MG TABLET PO PRN ×3 (05:41→20:00)
[2018-04-23] MEDS ORDERED: CATHFLO-ALTEPLASE 2 MG/2 ML CATHFLUSH ONE (06:00)
[2018-04-23 06:45] LABS: ALANINE AMINOTRANSFERASE 15 U/L (12-78); ALBUMIN 1.5 g/dL (3.4-5.0); ANION GAP 7 mmol/L (5-15); CALCIUM 7.6 mg/dL (8.5-10.1); CHLORIDE 117 mmol/L (98-107); CREATININE 0.73 mg/dL (0.55-1.02); TRIGLYCERIDES 119 mg/dL (50-200)
[2018-04-23 06:49] LABS: ALKALINE PHOSPHATASE 102 U/L (45-117); BILIRUBIN,TOTAL 0.3 mg/dL (0.2-1.0); PREALBUMIN 13.5 mg/dL (20.0-40.0); TOTAL PROTEIN 4.3 g/dL (6.4-8.2)
[2018-04-23] MEDS: INSULIN LISPRO 100 UNITS/ML, PEN SQ-INSULIN SCH ×4 (07:00→21:00)
[2018-04-23 07:56] VITALS: BP 119/63
[2018-04-23] MEDS: CALCIUM CARBONATE 500 MG TAB.CHEW PO SCH (09:00)
[2018-04-23] MEDS: SERTRALINE 100MG TABLET PO SCH (09:53)
[2018-04-23] MEDS: MAGNESIUM OXIDE 400 MG TABLET PO SCH (09:53)
[2018-04-23] MEDS: CHOLECALCIFEROL 5,000u TAB PO SCH (09:53)
[2018-04-23] MEDS: MULTIVITAMIN 1 TABLET PO SCH (09:53)
[2018-04-23] MEDS: FLUDROCORTISONE 0.1 MG TABLET PO SCH (09:53)
[2018-04-23] MEDS: LEVOTHYROXINE 50 MCG TABLET PO SCH (09:53)
[2018-04-23] MEDS: LIOTHYRONINE 5 MCG TABLET PO SCH (09:53)
[2018-04-23 13:50] VITALS: BP 139/76
[2018-04-23] MEDS ORDERED: FAT EMUL IV SCH (17:00)
[2018-04-23] MEDS ORDERED: SMOF TPN IV SCH (17:00)
[2018-04-23] MEDS ORDERED: AMINO ACID 10% IV SCH (17:00)
[2018-04-23] MEDS ORDERED: DEXTROSE 70% IV SCH (17:00)
[2018-04-23] MEDS ORDERED: [UNRECOGNIZED DRUG - OTHER] IV SCH (17:00)
[2018-04-23] MEDS: FILTER, DISP 1.2 MICRON FOR TPN/PVN IV PRN (17:26)
[2018-04-23 20:00] VITALS: BP 141/75
[2018-04-24 03:30] VITALS: BP 147/74
[2018-04-24] MEDS ORDERED: CATHFLO-ALTEPLASE 2 MG/2 ML CATHFLUSH ONE (05:00)
[2018-04-24 06:17] LABS: MEAN CORPUSCULAR HGB CONC 34.1 g/dL (32.4-35.8); MEAN CORPUSCULAR VOLUME 87.8 fL (80-100); PLATELET COUNT 176 x10^3/uL (130-400); RED BLOOD COUNT 2.81 x10^6/uL (3.82-5.3); RED CELL DISTRIBUTION WIDTH 16.2 % (9.6-15.2)
[2018-04-24 06:28] LABS: ALBUMIN 1.4 g/dL (3.4-5.0); ANION GAP 7 mmol/L (5-15); CALCIUM 7.8 mg/dL (8.5-10.1); CHLORIDE 114 mmol/L (98-107)
[2018-04-24 06:33] LABS: ALANINE AMINOTRANSFERASE 12 U/L (12-78); ALKALINE PHOSPHATASE 102 U/L (45-117); BILIRUBIN,TOTAL 0.3 mg/dL (0.2-1.0); TOTAL PROTEIN 4.5 g/dL (6.4-8.2)
[2018-04-24 06:39] LABS: MD YES
[2018-04-24 06:41] LABS: ANISOCYTOSIS 1+; BAND#(MANUAL) 0.13 x10^3/uL; BANDS%(MANUAL) 1 % (0-7); LYMPH#(MANUAL) 1.02 x10^3/uL (1-3.4); LYMPHS% (MANUAL) 8 % (22-44); METAMYELOCYTES# (MANUAL) 0.13 x10^3/uL (0-0); METAMYELOCYTES% (MANUAL) 1 % (0-1); MONOS#(MANUAL) 0.51 x10^3/uL (0.3-2.7); MONOS% (MANUAL) 4 % (2-9); MYELOCYTES# (MANUAL) 0.13 x10^3/uL (0-0); MYELOCYTES% (MANUAL) 1 % (0-0); NRBC % (MANUAL) 2 % (0-1); POLYCHROMASIA 1+; SEGS% (MANUAL) 85 % (42-75)
[2018-04-24 06:42] LABS: <PLATELET ESTIMATE> ADEQUATE; <PLT MORPHOLOGY> NORMAL PLT MORPH
[2018-04-24] MEDS: INSULIN LISPRO 100 UNITS/ML, PEN SQ-INSULIN SCH ×4 (07:00→21:13)
[2018-04-24 07:10] VITALS: BP 154/75
[2018-04-24] MEDS: CHOLECALCIFEROL 5,000u TAB PO SCH (09:00)
[2018-04-24] MEDS: CALCIUM CARBONATE 500 MG TAB.CHEW PO SCH (09:00)
[2018-04-24] MEDS: LIOTHYRONINE 5 MCG TABLET PO SCH (09:00)
[2018-04-24] MEDS: SERTRALINE 100MG TABLET PO SCH (09:00)
[2018-04-24] MEDS: LEVOTHYROXINE 50 MCG TABLET PO SCH (09:00)
[2018-04-24] MEDS: FLUDROCORTISONE 0.1 MG TABLET PO SCH (09:00)
[2018-04-24] MEDS: MULTIVITAMIN 1 TABLET PO SCH (09:00)
[2018-04-24] MEDS: MAGNESIUM OXIDE 400 MG TABLET PO SCH (09:00)
[2018-04-24 12:27] VITALS: BP 159/78
[2018-04-24] MEDS ORDERED: OMNIPAQUE 350 MG/ML, 150 ML BOTTLE ONE (15:48)
[2018-04-24] MEDS: ACETAMINOPHEN 500 MG TABLET PO PRN (16:32)
[2018-04-24] MEDS ORDERED: FAT EMUL IV SCH (17:00)
[2018-04-24] MEDS ORDERED: [UNRECOGNIZED DRUG - OTHER] IV SCH (17:00)
[2018-04-24] MEDS ORDERED: DEXTROSE 70% IV SCH (17:00)
[2018-04-24] MEDS ORDERED: FILTER, DISP 1.2 MICRON FOR TPN/PVN IV PRN (17:00)
[2018-04-24] MEDS ORDERED: AMINO ACID 10% IV SCH (17:00)
[2018-04-24] MEDS ORDERED: SMOF TPN IV SCH (17:00)
[2018-04-24] MEDS: AMPICILLIN/SULBACTAM 3 GM in SODIUM CHLORIDE 0.9% 100 ML IV SCH (18:30)
[2018-04-24 20:07] VITALS: BP 158/77
[2018-04-25] MEDS: AMPICILLIN/SULBACTAM 3 GM in SODIUM CHLORIDE 0.9% 100 ML IV SCH ×4 (00:36→21:10)
[2018-04-25] MEDS: DEXTROSE 5% 1,000 ML IV SCH (00:36)
[2018-04-25 04:00] VITALS: BP 158/74
[2018-04-25 06:02] LABS: ANION GAP 9 mmol/L (5-15); CALCIUM 8.1 mg/dL (8.5-10.1); CHLORIDE 113 mmol/L (98-107)
[2018-04-25 06:04] LABS: CREATININE 0.62 mg/dL (0.55-1.02)
[2018-04-25 07:13] VITALS: BP 168/78
[2018-04-25] MEDS: MULTIVITAMIN 1 TABLET PO SCH (08:10)
[2018-04-25] MEDS: LEVOTHYROXINE 50 MCG TABLET PO SCH (08:10)
[2018-04-25] MEDS: LIOTHYRONINE 5 MCG TABLET PO SCH (08:10)
[2018-04-25] MEDS: FLUDROCORTISONE 0.1 MG TABLET PO SCH (08:10)
[2018-04-25] MEDS: SERTRALINE 100MG TABLET PO SCH (08:10)
[2018-04-25] MEDS: INSULIN LISPRO 100 UNITS/ML, PEN SQ-INSULIN SCH (08:10)
[2018-04-25] MEDS: MAGNESIUM OXIDE 400 MG TABLET PO SCH (08:10)
[2018-04-25] MEDS: CALCIUM CARBONATE 500 MG TAB.CHEW PO SCH ×2 (08:11→08:16)
[2018-04-25] MEDS: CHOLECALCIFEROL 5,000u TAB PO SCH (08:11)
[2018-04-25] MEDS: MICAFUNGIN 100 MG in SODIUM CHLORIDE 0.9% 100 ML IV SCH (11:03)
[2018-04-25] MEDS: INSULIN LISPRO 100 UNITS/ML, PEN MEDIUM DOSE SS SQ-INSULIN SCH ×3 (11:04→21:10)
[2018-04-25 13:22] VITALS: BP 160/78
[2018-04-25] MEDS ORDERED: FENTANYL PF 250 MCG/5ML ONE (16:09)
[2018-04-25] MEDS ORDERED: PROPOFOL 10 MG/ML, 20ML ONE (16:32)
[2018-04-25] MEDS ORDERED: DEXAMETHASONE 4 MG/ML, 1ML ONE (16:32)
[2018-04-25] MEDS ORDERED: ONDANSETRON 2MG/ML, 2ML ONE (16:32)
[2018-04-25] MEDS ORDERED: SUCCINYLCHOLINE 20 MG/ML, 10ML ONE (16:32)
[2018-04-25] MEDS ORDERED: ALBUTEROL SULFATE 2.5 MG/3 ML NPPB PRN (17:00)
[2018-04-25] MEDS ORDERED: hydrALAzine 20 MG/ML, 1ML IV PRN (17:00)
[2018-04-25] MEDS ORDERED: DEXTROSE 70% IV SCH (17:00)
[2018-04-25] MEDS ORDERED: AMINO ACID 10% IV SCH (17:00)
[2018-04-25] MEDS ORDERED: [UNRECOGNIZED DRUG - OTHER] IV SCH (17:00)
[2018-04-25] MEDS ORDERED: LABETALOL 5MG/ML, 20ML IV PRN (17:00)
[2018-04-25] MEDS ORDERED: OXYcodone 5 MG/5 ML ORAL.SOL UDC PO PRN (17:00)
[2018-04-25] MEDS ORDERED: HYDROmorphone 1 MG/ML, 1ML IV PRN (17:00)
[2018-04-25] MEDS ORDERED: FENTANYL PF 100 MCG/2ML IV PRN (17:00)
[2018-04-25] MEDS ORDERED: FAT EMUL IV SCH (17:00)
[2018-04-25] MEDS ORDERED: FILTER, DISP 1.2 MICRON FOR TPN/PVN IV PRN (17:00)
[2018-04-25] MEDS ORDERED: SMOF TPN IV SCH (17:00)
[2018-04-25] MEDS ORDERED: ACETAMINOPHEN 325 MG TABLET PO PRN (17:00)
[2018-04-25] MEDS ORDERED: ACETAMINOPHEN 650 MG/20.3 ML UDC ONE (17:37)
[2018-04-25] MEDS: ACETAMINOPHEN 500 MG TABLET PO PRN (18:30)
[2018-04-25 18:45] VITALS: BP 148/79
[2018-04-26] MEDS ORDERED: CATHFLO-ALTEPLASE 2 MG/2 ML CATHFLUSH ONE
[2018-04-26 00:22] VITALS: BP 154/73
[2018-04-26] MEDS: ACETAMINOPHEN 500 MG TABLET PO PRN ×3 (00:32→20:44)
[2018-04-26] MEDS: DEXTROSE 5% 1,000 ML IV SCH (00:33)
[2018-04-26] MEDS: AMPICILLIN/SULBACTAM 3 GM in SODIUM CHLORIDE 0.9% 100 ML IV SCH ×4 (03:53→22:00)
[2018-04-26 04:24] LABS: ANION GAP 7 mmol/L (5-15); CHLORIDE 113 mmol/L (98-107); CREATININE 0.64 mg/dL (0.55-1.02)
[2018-04-26 04:57] VITALS: BP 163/75
[2018-04-26 05:52] VITALS: BP 159/75
[2018-04-26] MEDS: INSULIN LISPRO 100 UNITS/ML, PEN MEDIUM DOSE SS SQ-INSULIN SCH ×4 (07:31→20:54)
[2018-04-26 07:32] VITALS: BP 169/78
[2018-04-26] MEDS: CALCIUM CARBONATE 500 MG TAB.CHEW PO SCH (09:00)
[2018-04-26] MEDS ORDERED: POTASSIUM PHOS 4.4 MEQ/ML IV ONE (09:00)
[2018-04-26] MEDS ORDERED: POTASSIUM PHOSPHATE 22 MEQ in SODIUM CHLORIDE 0.9% 500 ML IV ONE (09:00)
[2018-04-26] MEDS: LEVOTHYROXINE 50 MCG TABLET PO SCH (09:36)
[2018-04-26] MEDS: SERTRALINE 100MG TABLET PO SCH (09:37)
[2018-04-26] MEDS: FLUDROCORTISONE 0.1 MG TABLET PO SCH (09:37)
[2018-04-26] MEDS: MULTIVITAMIN 1 TABLET PO SCH (09:40)
[2018-04-26] MEDS: LIOTHYRONINE 5 MCG TABLET PO SCH (09:40)
[2018-04-26] MEDS: CHOLECALCIFEROL 5,000u TAB PO SCH (09:40)
[2018-04-26] MEDS: MAGNESIUM OXIDE 400 MG TABLET PO SCH (09:40)
[2018-04-26 12:36] VITALS: BP 166/80
[2018-04-26] MEDS: FILTER, DISP 1.2 MICRON FOR TPN/PVN IV PRN (16:39)
[2018-04-26 16:47] LABS: MEAN CORPUSCULAR HGB CONC 32.9 g/dL (32.4-35.8); MEAN CORPUSCULAR VOLUME 88.1 fL (80-100); MEAN PLATELET VOLUME 9.1 fL (7.4-10.4); PLATELET COUNT 192 x10^3/uL (130-400); RED BLOOD COUNT 3.01 x10^6/uL (3.82-5.3)
[2018-04-26] MEDS ORDERED: FAT EMUL IV SCH (17:00)
[2018-04-26] MEDS ORDERED: [UNRECOGNIZED DRUG - OTHER] IV SCH (17:00)
[2018-04-26] MEDS ORDERED: SMOF TPN IV SCH (17:00)
[2018-04-26] MEDS ORDERED: DEXTROSE 70% IV SCH (17:00)
[2018-04-26] MEDS ORDERED: AMINO ACID 10% IV SCH (17:00)
[2018-04-26 17:15] LABS: MD YES
[2018-04-26 17:22] LABS: ANISOCYTOSIS 1+; BAND#(MANUAL) 0.25 x10^3/uL; BANDS%(MANUAL) 2 % (0-7); LYMPH#(MANUAL) 0.13 x10^3/uL (1-3.4); LYMPHS% (MANUAL) 1 % (22-44); METAMYELOCYTES# (MANUAL) 0.25 x10^3/uL (0-0); METAMYELOCYTES% (MANUAL) 2 % (0-1); MONOS#(MANUAL) 0.13 x10^3/uL (0.3-2.7); MONOS% (MANUAL) 1 % (2-9); MYELOCYTES# (MANUAL) 0.25 x10^3/uL (0-0); MYELOCYTES% (MANUAL) 2 % (0-0); POLYCHROMASIA 1+; SEG#(MANUAL) 11.68 x10^3/uL (1.8-6.8); SEGS% (MANUAL) 92 % (42-75)
[2018-04-26 17:26] LABS: <PLATELET ESTIMATE> ADEQUATE; <PLT MORPHOLOGY> NORMAL PLT MORPH
[2018-04-26 19:05] VITALS: BP 156/81
[2018-04-26] MEDS: MICAFUNGIN 100 MG in SODIUM CHLORIDE 0.9% 100 ML IV SCH (20:53)
[2018-04-27 02:03] VITALS: BP 171/74
[2018-04-27 02:22] VITALS: BP 168/79
[2018-04-27] MEDS: AMPICILLIN/SULBACTAM 3 GM in SODIUM CHLORIDE 0.9% 100 ML IV SCH ×4 (04:05→22:59)
[2018-04-27 05:21] LABS: BASOPHILS % (AUTO) 0 % (0-1); EOSINOPHILS # (AUTO) 0.01 x10^3/uL (0-0.4); EOSINOPHILS % (AUTO) 0 % (1-7); LYMPHOCYTES # (AUTO) 0.55 x10^3/uL (1-3.4); LYMPHOCYTES % (AUTO) 5 % (22-44); MD NO; MEAN CORPUSCULAR HEMOGLOBIN 29.8 pg (27.0-34.8); MEAN CORPUSCULAR HGB CONC 33.8 g/dL (32.4-35.8); MEAN CORPUSCULAR VOLUME 87.9 fL (80-100); MEAN PLATELET VOLUME 9.1 fL (7.4-10.4); MONOCYTES # (AUTO) 0.52 x10^3/uL (0.2-0.8); MONOCYTES % (AUTO) 4 % (2-9); NEUTROPHILS # (AUTO) 11.09 x10^3/uL (1.8-6.8); NEUTROPHILS % (AUTO) 91 % (42-75); PLATELET COUNT 172 x10^3/uL (130-400); RED BLOOD COUNT 2.72 x10^6/uL (3.82-5.3); RED CELL DISTRIBUTION WIDTH 16.8 % (9.6-15.2)
[2018-04-27 05:32] LABS: CHLORIDE 111 mmol/L (98-107)
[2018-04-27 05:41] LABS: ANION GAP 8 mmol/L (5-15); CALCIUM 8.3 mg/dL (8.5-10.1); CREATININE 0.67 mg/dL (0.55-1.02)
[2018-04-27] MEDS: INSULIN LISPRO 100 UNITS/ML, PEN MEDIUM DOSE SS SQ-INSULIN SCH ×4 (07:00→20:34)
[2018-04-27 08:35] VITALS: BP 174/82
[2018-04-27] MEDS: LIOTHYRONINE 5 MCG TABLET PO SCH (08:44)
[2018-04-27] MEDS: SERTRALINE 100MG TABLET PO SCH (08:44)
[2018-04-27] MEDS: FLUDROCORTISONE 0.1 MG TABLET PO SCH (08:45)
[2018-04-27] MEDS: LEVOTHYROXINE 50 MCG TABLET PO SCH (08:45)
[2018-04-27] MEDS: ACETAMINOPHEN 500 MG TABLET PO PRN ×3 (08:48→22:59)
[2018-04-27] MEDS: CALCIUM CARBONATE 500 MG TAB.CHEW PO SCH (09:00)
[2018-04-27] MEDS: MULTIVITAMIN 1 TABLET PO SCH (09:00)
[2018-04-27] MEDS: MAGNESIUM OXIDE 400 MG TABLET PO SCH (09:00)
[2018-04-27] MEDS: CHOLECALCIFEROL 5,000u TAB PO SCH (09:00)
[2018-04-27] MEDS: AMLODIPINE 2.5 MG TABLET PO SCH (12:09)
[2018-04-27 13:38] VITALS: BP 154/72
[2018-04-27] MEDS: FILTER, DISP 1.2 MICRON FOR TPN/PVN IV PRN ×2 (16:53→17:28)
[2018-04-27] MEDS ORDERED: SMOF TPN IV SCH (17:00)
[2018-04-27] MEDS ORDERED: FAT EMUL IV SCH (17:00)
[2018-04-27] MEDS ORDERED: [UNRECOGNIZED DRUG - OTHER] IV SCH (17:00)
[2018-04-27] MEDS ORDERED: AMINO ACID 10% IV SCH (17:00)
[2018-04-27] MEDS ORDERED: DEXTROSE 70% IV SCH (17:00)
[2018-04-27] MEDS: MICAFUNGIN 100 MG in SODIUM CHLORIDE 0.9% 100 ML IV SCH (20:32)
[2018-04-27 21:38] VITALS: BP 158/73
[2018-04-28 00:43] VITALS: BP 157/76
[2018-04-28] MEDS: AMPICILLIN/SULBACTAM 3 GM in SODIUM CHLORIDE 0.9% 100 ML IV SCH ×3 (05:21→19:42)
[2018-04-28 06:23] LABS: ALBUMIN 1.5 g/dL (3.4-5.0); ANION GAP 8 mmol/L (5-15); CALCIUM 8.4 mg/dL (8.5-10.1); CHLORIDE 112 mmol/L (98-107); CREATININE 0.74 mg/dL (0.55-1.02)
[2018-04-28 06:39] LABS: MEAN CORPUSCULAR HEMOGLOBIN 28.5 pg (27.0-34.8); MEAN CORPUSCULAR HGB CONC 32.2 g/dL (32.4-35.8); MEAN CORPUSCULAR VOLUME 88.5 fL (80-100); MEAN PLATELET VOLUME 9.3 fL (7.4-10.4); PLATELET COUNT 172 x10^3/uL (130-400); RED BLOOD COUNT 2.75 x10^6/uL (3.82-5.3); RED CELL DISTRIBUTION WIDTH 16.7 % (9.6-15.2)
[2018-04-28 06:51] VITALS: BP 149/78
[2018-04-28] MEDS: INSULIN LISPRO 100 UNITS/ML, PEN MEDIUM DOSE SS SQ-INSULIN SCH ×4 (07:00→21:00)
[2018-04-28 07:49] LABS: BASOPHILS # (AUTO) 0.02 x10^3/uL (0-0.1); BASOPHILS % (AUTO) 0 % (0-1); EOSINOPHILS % (AUTO) 0 % (1-7); LYMPHOCYTES # (AUTO) 0.58 x10^3/uL (1-3.4); LYMPHOCYTES % (AUTO) 5 % (22-44); MD SCAN; MONOCYTES # (AUTO) 0.51 x10^3/uL (0.2-0.8); MONOCYTES % (AUTO) 5 % (2-9); NEUTROPHILS # (AUTO) 10.28 x10^3/uL (1.8-6.8); NEUTROPHILS % (AUTO) 90 % (42-75)
[2018-04-28] MEDS: LEVOTHYROXINE 50 MCG TABLET PO SCH (08:19)
[2018-04-28] MEDS: AMLODIPINE 2.5 MG TABLET PO SCH (08:19)
[2018-04-28] MEDS: LIOTHYRONINE 5 MCG TABLET PO SCH (08:19)
[2018-04-28] MEDS: CALCIUM CARBONATE 500 MG TAB.CHEW PO SCH (08:20)
[2018-04-28] MEDS: CHOLECALCIFEROL 5,000u TAB PO SCH (08:20)
[2018-04-28] MEDS: FLUDROCORTISONE 0.1 MG TABLET PO SCH (08:20)
[2018-04-28] MEDS: MULTIVITAMIN 1 TABLET PO SCH (08:20)
[2018-04-28] MEDS: SERTRALINE 100MG TABLET PO SCH (08:20)
[2018-04-28] MEDS: MAGNESIUM OXIDE 400 MG TABLET PO SCH (08:20)
[2018-04-28] MEDS ORDERED: hydrALAzine 20 MG/ML, 1ML IV PRN (10:30)
[2018-04-28] MEDS ORDERED: MEPERIDINE/PF 25MG/0.5ML IVPush PRN (10:30)
[2018-04-28] MEDS ORDERED: DIAZEPAM 5 MG/ML, 2ML IVPush PRN (10:30)
[2018-04-28] MEDS ORDERED: METOCLOPRAMIDE 5 MG/ML, 2ML IV PRN (10:30)
[2018-04-28] MEDS ORDERED: LABETALOL 5MG/ML, 20ML IV PRN (10:30)
[2018-04-28] MEDS ORDERED: HYDROmorphone 1 MG/ML, 1ML IV PRN (10:30)
[2018-04-28] MEDS ORDERED: FENTANYL PF 100 MCG/2ML IV PRN (10:30)
[2018-04-28] MEDS ORDERED: PROPOFOL 10 MG/ML, 20ML ONE (10:43)
[2018-04-28] MEDS ORDERED: FENTANYL PF 250 MCG/5ML ONE (10:43)
[2018-04-28] MEDS ORDERED: SUCCINYLCHOLINE 20 MG/ML, 10ML ONE (10:57)
[2018-04-28] MEDS ORDERED: PHENYLEPHRINE 10 MG/ML ONE (10:57)
[2018-04-28] MEDS ORDERED: FENTANYL PF 100 MCG/2ML ONE (12:06)
[2018-04-28] MEDS: ACETAMINOPHEN 500 MG TABLET PO PRN ×2 (14:16→21:02)
[2018-04-28 14:17] VITALS: BP 136/78
[2018-04-28] MEDS ORDERED: SMOF TPN IV SCH (17:00)
[2018-04-28] MEDS ORDERED: FAT EMUL IV SCH (17:00)
[2018-04-28] MEDS ORDERED: AMINO ACID 10% IV SCH (17:00)
[2018-04-28] MEDS ORDERED: DEXTROSE 70% IV SCH (17:00)
[2018-04-28] MEDS ORDERED: [UNRECOGNIZED DRUG - OTHER] IV SCH (17:00)
[2018-04-28] MEDS: FILTER, DISP 1.2 MICRON FOR TPN/PVN IV PRN (17:06)
[2018-04-28 18:50] VITALS: BP 109/68
[2018-04-28] MEDS: MICAFUNGIN 100 MG in SODIUM CHLORIDE 0.9% 100 ML IV SCH (21:07)
[2018-04-29 00:16] VITALS: BP 144/73
[2018-04-29] MEDS: AMPICILLIN/SULBACTAM 3 GM in SODIUM CHLORIDE 0.9% 100 ML IV SCH ×4 (02:06→20:20)
[2018-04-29] MEDS: ACETAMINOPHEN 500 MG TABLET PO PRN (03:26)
[2018-04-29 03:36] VITALS: BP 155/75
[2018-04-29 04:01] LABS: BASOPHILS % (AUTO) 0 % (0-1); EOSINOPHILS # (AUTO) 0.03 x10^3/uL (0-0.4); EOSINOPHILS % (AUTO) 0 % (1-7); LYMPHOCYTES # (AUTO) 0.52 x10^3/uL (1-3.4); LYMPHOCYTES % (AUTO) 3 % (22-44); MD NO; MEAN CORPUSCULAR HEMOGLOBIN 29.4 pg (27.0-34.8); MEAN PLATELET VOLUME 9.3 fL (7.4-10.4); MONOCYTES # (AUTO) 0.56 x10^3/uL (0.2-0.8); MONOCYTES % (AUTO) 3 % (2-9); NEUTROPHILS # (AUTO) 15.65 x10^3/uL (1.8-6.8); NEUTROPHILS % (AUTO) 93 % (42-75); PLATELET COUNT 185 x10^3/uL (130-400); RED BLOOD COUNT 2.82 x10^6/uL (3.82-5.3); RED CELL DISTRIBUTION WIDTH 17.4 % (9.6-15.2)
[2018-04-29 04:12] LABS: ALANINE AMINOTRANSFERASE 26 U/L (12-78); ALBUMIN 1.4 g/dL (3.4-5.0); ANION GAP 6 mmol/L (5-15); CALCIUM 8.3 mg/dL (8.5-10.1); CHLORIDE 112 mmol/L (98-107); CREATININE 0.77 mg/dL (0.55-1.02)
[2018-04-29 04:20] LABS: ALKALINE PHOSPHATASE 148 U/L (45-117); BILIRUBIN,TOTAL 0.3 mg/dL (0.2-1.0); PREALBUMIN 25.9 mg/dL (20.0-40.0); TOTAL PROTEIN 4.9 g/dL (6.4-8.2); TRIGLYCERIDES 123 mg/dL (50-200)
[2018-04-29 04:56] LABS: HCT (SEDRATE) 24.7 % (34.6-47.8)
[2018-04-29 07:30] VITALS: BP 146/79
[2018-04-29] MEDS: LEVOTHYROXINE 50 MCG TABLET PO SCH (07:30)
[2018-04-29] MEDS: INSULIN LISPRO 100 UNITS/ML, PEN MEDIUM DOSE SS SQ-INSULIN SCH ×4 (07:30→20:28)
[2018-04-29] MEDS: MAGNESIUM OXIDE 400 MG TABLET PO SCH (09:15)
[2018-04-29] MEDS: CALCIUM CARBONATE 500 MG TAB.CHEW PO SCH (09:15)
[2018-04-29] MEDS: MULTIVITAMIN 1 TABLET PO SCH (09:15)
[2018-04-29] MEDS: AMLODIPINE 2.5 MG TABLET PO SCH (09:15)
[2018-04-29] MEDS: SERTRALINE 100MG TABLET PO SCH (09:16)
[2018-04-29] MEDS: FLUDROCORTISONE 0.1 MG TABLET PO SCH (09:16)
[2018-04-29] MEDS: LIOTHYRONINE 5 MCG TABLET PO SCH (09:26)
[2018-04-29] MEDS: CHOLECALCIFEROL 5,000u TAB PO SCH (09:26)
[2018-04-29 13:37] VITALS: BP 164/83
[2018-04-29] MEDS: FILTER, DISP 1.2 MICRON FOR TPN/PVN IV PRN (16:28)
[2018-04-29] MEDS ORDERED: SMOF TPN IV SCH (17:00)
[2018-04-29] MEDS ORDERED: AMINO ACID 10% IV SCH (17:00)
[2018-04-29] MEDS ORDERED: FAT EMUL IV SCH (17:00)
[2018-04-29] MEDS ORDERED: [UNRECOGNIZED DRUG - OTHER] IV SCH (17:00)
[2018-04-29] MEDS ORDERED: DEXTROSE 70% IV SCH (17:00)
[2018-04-29 18:31] VITALS: BP 160/78
[2018-04-29] MEDS: MICAFUNGIN 100 MG in SODIUM CHLORIDE 0.9% 100 ML IV SCH (21:10)
[2018-04-30 01:25] VITALS: BP 148/72
[2018-04-30] MEDS: AMPICILLIN/SULBACTAM 3 GM in SODIUM CHLORIDE 0.9% 100 ML IV SCH ×4 (01:49→20:30)
[2018-04-30 05:52] LABS: BASOPHILS % (AUTO) 0 % (0-1); EOSINOPHILS % (AUTO) 0 % (1-7); LYMPHOCYTES # (AUTO) 0.51 x10^3/uL (1-3.4); LYMPHOCYTES % (AUTO) 4 % (22-44); MD NO; MEAN CORPUSCULAR HEMOGLOBIN 30.5 pg (27.0-34.8); MEAN CORPUSCULAR VOLUME 89.6 fL (80-100); MEAN PLATELET VOLUME 9.1 fL (7.4-10.4); MONOCYTES # (AUTO) 0.59 x10^3/uL (0.2-0.8); MONOCYTES % (AUTO) 4 % (2-9); NEUTROPHILS # (AUTO) 12.24 x10^3/uL (1.8-6.8); NEUTROPHILS % (AUTO) 92 % (42-75); PLATELET COUNT 178 x10^3/uL (130-400); RED BLOOD COUNT 2.53 x10^6/uL (3.82-5.3); RED CELL DISTRIBUTION WIDTH 17.7 % (9.6-15.2)
[2018-04-30 05:58] LABS: CHLORIDE 111 mmol/L (98-107)
[2018-04-30] MEDS: ACETAMINOPHEN 500 MG TABLET PO PRN ×3 (06:01→20:43)
[2018-04-30 06:04] LABS: ANION GAP 10 mmol/L (5-15); CALCIUM 8.5 mg/dL (8.5-10.1); CREATININE 0.66 mg/dL (0.55-1.02)
[2018-04-30] MEDS: INSULIN LISPRO 100 UNITS/ML, PEN MEDIUM DOSE SS SQ-INSULIN SCH ×4 (06:15→20:43)
[2018-04-30 08:13] VITALS: BP 145/71
[2018-04-30] MEDS: SERTRALINE 100MG TABLET PO SCH (09:44)
[2018-04-30] MEDS: FLUDROCORTISONE 0.1 MG TABLET PO SCH (09:44)
[2018-04-30] MEDS: AMLODIPINE 2.5 MG TABLET PO SCH (09:44)
[2018-04-30] MEDS: LEVOTHYROXINE 50 MCG TABLET PO SCH (09:44)
[2018-04-30] MEDS: LIOTHYRONINE 5 MCG TABLET PO SCH (09:44)
[2018-04-30] MEDS: MULTIVITAMIN 1 TABLET PO SCH (09:47)
[2018-04-30] MEDS: CHOLECALCIFEROL 5,000u TAB PO SCH (09:47)
[2018-04-30] MEDS: MAGNESIUM OXIDE 400 MG TABLET PO SCH (09:47)
[2018-04-30] MEDS: CALCIUM CARBONATE 500 MG TAB.CHEW PO SCH (09:47)
[2018-04-30 15:06] VITALS: BP 145/71
[2018-04-30] MEDS: FILTER, DISP 1.2 MICRON FOR TPN/PVN IV PRN (16:43)
[2018-04-30] MEDS ORDERED: SMOF TPN IV SCH (17:00)
[2018-04-30] MEDS ORDERED: DEXTROSE 70% IV SCH (17:00)
[2018-04-30] MEDS ORDERED: AMINO ACID 10% IV SCH (17:00)
[2018-04-30] MEDS ORDERED: [UNRECOGNIZED DRUG - OTHER] IV SCH (17:00)
[2018-04-30] MEDS ORDERED: FAT EMUL IV SCH (17:00)
[2018-04-30 18:50] VITALS: BP 161/75
[2018-04-30] MEDS: MICAFUNGIN 100 MG in SODIUM CHLORIDE 0.9% 100 ML IV SCH (21:13)
[2018-05-01] MEDS: AMPICILLIN/SULBACTAM 3 GM in SODIUM CHLORIDE 0.9% 100 ML IV SCH ×4 (01:50→20:35)
[2018-05-01 02:17] VITALS: BP 162/75
[2018-05-01] MEDS: ACETAMINOPHEN 500 MG TABLET PO PRN ×3 (02:37→18:37)
[2018-05-01 06:26] LABS: BASOPHILS # (AUTO) 0.01 x10^3/uL (0-0.1); BASOPHILS % (AUTO) 0 % (0-1); EOSINOPHILS # (AUTO) 0.44 x10^3/uL (0-0.4); EOSINOPHILS % (AUTO) 3 % (1-7); LYMPHOCYTES # (AUTO) 0.54 x10^3/uL (1-3.4); LYMPHOCYTES % (AUTO) 4 % (22-44); MD NO; MEAN CORPUSCULAR HEMOGLOBIN 30.1 pg (27.0-34.8); MEAN CORPUSCULAR HGB CONC 33.8 g/dL (32.4-35.8); MONOCYTES # (AUTO) 0.57 x10^3/uL (0.2-0.8); MONOCYTES % (AUTO) 4 % (2-9); NEUTROPHILS # (AUTO) 12.02 x10^3/uL (1.8-6.8); NEUTROPHILS % (AUTO) 89 % (42-75); PLATELET COUNT 210 x10^3/uL (130-400); RED BLOOD COUNT 2.73 x10^6/uL (3.82-5.3)
[2018-05-01 06:32] LABS: ALBUMIN 1.6 g/dL (3.4-5.0); ANION GAP 9 mmol/L (5-15); CALCIUM 8.7 mg/dL (8.5-10.1); CHLORIDE 111 mmol/L (98-107); CREATININE 0.68 mg/dL (0.55-1.02)
[2018-05-01] MEDS: INSULIN LISPRO 100 UNITS/ML, PEN MEDIUM DOSE SS SQ-INSULIN SCH ×4 (07:00→22:15)
[2018-05-01 07:59] VITALS: BP 174/77
[2018-05-01] MEDS: LIOTHYRONINE 5 MCG TABLET PO SCH (08:24)
[2018-05-01] MEDS: AMLODIPINE 2.5 MG TABLET PO SCH (08:25)
[2018-05-01] MEDS: CHOLECALCIFEROL 5,000u TAB PO SCH (08:25)
[2018-05-01] MEDS: MAGNESIUM OXIDE 400 MG TABLET PO SCH (08:25)
[2018-05-01] MEDS: MULTIVITAMIN 1 TABLET PO SCH (08:25)
[2018-05-01] MEDS: LEVOTHYROXINE 50 MCG TABLET PO SCH (08:25)
[2018-05-01] MEDS: FLUDROCORTISONE 0.1 MG TABLET PO SCH (08:25)
[2018-05-01] MEDS: SERTRALINE 100MG TABLET PO SCH (08:25)
[2018-05-01] MEDS: CALCIUM CARBONATE 500 MG TAB.CHEW PO SCH (08:25)
[2018-05-01 08:26] VITALS: BP 167/84
[2018-05-01 14:00] VITALS: BP 164/80
[2018-05-01] MEDS ORDERED: SMOF TPN IV SCH (17:00)
[2018-05-01] MEDS ORDERED: FAT EMUL IV SCH (17:00)
[2018-05-01] MEDS ORDERED: [UNRECOGNIZED DRUG - OTHER] IV SCH (17:00)
[2018-05-01] MEDS ORDERED: AMINO ACID 10% IV SCH (17:00)
[2018-05-01] MEDS ORDERED: DEXTROSE 70% IV SCH (17:00)
[2018-05-01] MEDS: FILTER, DISP 1.2 MICRON FOR TPN/PVN IV PRN (17:21)
[2018-05-01 19:42] VITALS: BP 144/74
[2018-05-01] MEDS: MICAFUNGIN 100 MG in SODIUM CHLORIDE 0.9% 100 ML IV SCH (21:53)
[2018-05-02 01:12] VITALS: BP 158/76
[2018-05-02] MEDS: AMPICILLIN/SULBACTAM 3 GM in SODIUM CHLORIDE 0.9% 100 ML IV SCH ×4 (02:02→21:04)
[2018-05-02 04:56] LABS: ALBUMIN 1.7 g/dL (3.4-5.0); ANION GAP 7 mmol/L (5-15); CALCIUM 8.6 mg/dL (8.5-10.1); CHLORIDE 112 mmol/L (98-107); CREATININE 0.74 mg/dL (0.55-1.02)
[2018-05-02 05:04] LABS: BASOPHILS % (AUTO) 0 % (0-1); EOSINOPHILS # (AUTO) 0.01 x10^3/uL (0-0.4); EOSINOPHILS % (AUTO) 0 % (1-7); LYMPHOCYTES # (AUTO) 0.47 x10^3/uL (1-3.4); LYMPHOCYTES % (AUTO) 4 % (22-44); MD NO; MEAN CORPUSCULAR HEMOGLOBIN 29.7 pg (27.0-34.8); MEAN CORPUSCULAR HGB CONC 33.2 g/dL (32.4-35.8); MEAN CORPUSCULAR VOLUME 89.7 fL (80-100); MEAN PLATELET VOLUME 9.1 fL (7.4-10.4); MONOCYTES # (AUTO) 0.55 x10^3/uL (0.2-0.8); MONOCYTES % (AUTO) 4 % (2-9); NEUTROPHILS # (AUTO) 12.14 x10^3/uL (1.8-6.8); NEUTROPHILS % (AUTO) 92 % (42-75); PLATELET COUNT 230 x10^3/uL (130-400); RED BLOOD COUNT 2.82 x10^6/uL (3.82-5.3); RED CELL DISTRIBUTION WIDTH 18.1 % (9.6-15.2)
[2018-05-02] MEDS: INSULIN LISPRO 100 UNITS/ML, PEN SQ-INSULIN SCH ×4 (05:19→21:04)
[2018-05-02] MEDS ORDERED: FENTANYL PF 250 MCG/5ML ONE (07:09)
[2018-05-02] MEDS ORDERED: FENTANYL PF 100 MCG/2ML IV PRN (08:00)
[2018-05-02] MEDS ORDERED: OXYcodone 5 MG/5 ML ORAL.SOL UDC PO PRN (08:00)
[2018-05-02] MEDS ORDERED: ALBUTEROL SULFATE 2.5 MG/3 ML NPPB PRN (08:00)
[2018-05-02] MEDS ORDERED: PROMETHAZINE 25 MG/ML, 1ML IV PRN (08:00)
[2018-05-02] MEDS ORDERED: HYDROmorphone 2 MG/ML, 1ML IVPush PRN (08:00)
[2018-05-02] MEDS ORDERED: LABETALOL 5MG/ML, 20ML IV PRN (08:00)
[2018-05-02] MEDS ORDERED: hydrALAzine 20 MG/ML, 1ML IV PRN (08:00)
[2018-05-02] MEDS ORDERED: HYDROmorphone 2 MG/ML, 1ML ONE (08:43)
[2018-05-02] MEDS ORDERED: FENTANYL PF 100 MCG/2ML ONE (08:53)
[2018-05-02 09:25] VITALS: BP 128/73
[2018-05-02] MEDS ORDERED: SMOF TPN IV SCH ×2 (09:30→17:00)
[2018-05-02] MEDS ORDERED: AMINO ACID 10% IV SCH ×2 (09:30→17:00)
[2018-05-02] MEDS ORDERED: DEXTROSE 70% IV SCH ×2 (09:30→17:00)
[2018-05-02] MEDS ORDERED: [UNRECOGNIZED DRUG - OTHER] IV SCH (09:30)
[2018-05-02] MEDS ORDERED: FAT EMUL IV SCH ×2 (09:30→17:00)
[2018-05-02] MEDS: CALCIUM CARBONATE 500 MG TAB.CHEW PO SCH (10:44)
[2018-05-02] MEDS: MAGNESIUM OXIDE 400 MG TABLET PO SCH (10:44)
[2018-05-02] MEDS: CHOLECALCIFEROL 5,000u TAB PO SCH (10:44)
[2018-05-02] MEDS: LIOTHYRONINE 5 MCG TABLET PO SCH (10:44)
[2018-05-02] MEDS: SERTRALINE 100MG TABLET PO SCH (10:44)
[2018-05-02] MEDS: AMLODIPINE 2.5 MG TABLET PO SCH (10:45)
[2018-05-02] MEDS: LEVOTHYROXINE 50 MCG TABLET PO SCH (10:45)
[2018-05-02] MEDS: FLUDROCORTISONE 0.1 MG TABLET PO SCH (10:45)
[2018-05-02] MEDS ORDERED: GLYCOPYRROLATE 0.2MG/1ML, 5ML ONE (11:12)
[2018-05-02] MEDS ORDERED: ONDANSETRON 2MG/ML, 2ML ONE (11:12)
[2018-05-02] MEDS ORDERED: PROPOFOL 10 MG/ML, 20ML ONE (11:12)
[2018-05-02] MEDS ORDERED: NEOSTIGMINE 1 MG/ML, 10ML ONE (11:12)
[2018-05-02] MEDS ORDERED: ROCURONIUM 10MG/ML,5ML ONE (11:12)
[2018-05-02 12:56] VITALS: BP 138/74
[2018-05-02] MEDS: ACETAMINOPHEN 500 MG TABLET PO PRN ×2 (13:47→20:07)
[2018-05-02] MEDS: FILTER, DISP 1.2 MICRON FOR TPN/PVN IV PRN (16:22)
[2018-05-02] MEDS ORDERED: [UNRECOGNIZED DRUG - OTHER] IV SCH (17:00)
[2018-05-02 18:25] VITALS: BP 120/70
[2018-05-02] MEDS: MICAFUNGIN 100 MG in SODIUM CHLORIDE 0.9% 100 ML IV SCH (21:42)
[2018-05-02 23:56] VITALS: BP 133/67
[2018-05-03] MEDS: AMPICILLIN/SULBACTAM 3 GM in SODIUM CHLORIDE 0.9% 100 ML IV SCH ×4 (03:22→20:51)
[2018-05-03 04:04] VITALS: BP 150/71
[2018-05-03 05:12] LABS: ANION GAP 8 mmol/L (5-15); CALCIUM 8.4 mg/dL (8.5-10.1); CHLORIDE 112 mmol/L (98-107); CREATININE 0.68 mg/dL (0.55-1.02)
[2018-05-03 06:52] VITALS: BP 145/77
[2018-05-03] MEDS: INSULIN LISPRO 100 UNITS/ML, PEN SQ-INSULIN SCH ×4 (07:28→21:41)
[2018-05-03 08:41] LABS: BASOPHILS # (AUTO) 0.01 x10^3/uL (0-0.1); BASOPHILS % (AUTO) 0 % (0-1); EOSINOPHILS # (AUTO) 0.01 x10^3/uL (0-0.4); EOSINOPHILS % (AUTO) 0 % (1-7); LYMPHOCYTES # (AUTO) 0.47 x10^3/uL (1-3.4); LYMPHOCYTES % (AUTO) 4 % (22-44); MD NO; MEAN CORPUSCULAR HEMOGLOBIN 28.5 pg (27.0-34.8); MEAN CORPUSCULAR HGB CONC 31.9 g/dL (32.4-35.8); MEAN CORPUSCULAR VOLUME 89.4 fL (80-100); MEAN PLATELET VOLUME 8.5 fL (7.4-10.4); MONOCYTES # (AUTO) 0.47 x10^3/uL (0.2-0.8); MONOCYTES % (AUTO) 4 % (2-9); NEUTROPHILS # (AUTO) 12.62 x10^3/uL (1.8-6.8); NEUTROPHILS % (AUTO) 93 % (42-75); PLATELET COUNT 243 x10^3/uL (130-400); RED BLOOD COUNT 2.86 x10^6/uL (3.82-5.3); RED CELL DISTRIBUTION WIDTH 18.5 % (9.6-15.2)
[2018-05-03 08:54] LABS: ALANINE AMINOTRANSFERASE 28 U/L (12-78); ALBUMIN 1.7 g/dL (3.4-5.0); ANION GAP 10 mmol/L (5-15); CALCIUM 8.5 mg/dL (8.5-10.1); CHLORIDE 111 mmol/L (98-107)
[2018-05-03 08:57] LABS: ALKALINE PHOSPHATASE 150 U/L (45-117); BILIRUBIN,TOTAL 0.3 mg/dL (0.2-1.0); TOTAL PROTEIN 5.3 g/dL (6.4-8.2)
[2018-05-03] MEDS: MAGNESIUM OXIDE 400 MG TABLET PO SCH (09:33)
[2018-05-03] MEDS: AMLODIPINE 2.5 MG TABLET PO SCH (09:33)
[2018-05-03] MEDS: FLUDROCORTISONE 0.1 MG TABLET PO SCH (09:33)
[2018-05-03] MEDS: CALCIUM CARBONATE 500 MG TAB.CHEW PO SCH (09:33)
[2018-05-03] MEDS: LIOTHYRONINE 5 MCG TABLET PO SCH (09:33)
[2018-05-03] MEDS: SERTRALINE 100MG TABLET PO SCH (09:34)
[2018-05-03] MEDS: CHOLECALCIFEROL 5,000u TAB PO SCH (09:34)
[2018-05-03] MEDS: LEVOTHYROXINE 50 MCG TABLET PO SCH (09:34)
[2018-05-03] MEDS: ACETAMINOPHEN 500 MG TABLET PO PRN ×3 (09:55→21:41)
[2018-05-03] MEDS ORDERED: [UNRECOGNIZED DRUG - OTHER] IV SCH (17:00)
[2018-05-03] MEDS ORDERED: DEXTROSE 70% IV SCH ×2 (17:00)
[2018-05-03] MEDS ORDERED: AMINO ACID 10% IV SCH ×2 (17:00)
[2018-05-03] MEDS ORDERED: FAT EMUL IV SCH ×2 (17:00)
[2018-05-03] MEDS ORDERED: SMOF TPN IV SCH ×2 (17:00)
[2018-05-03] MEDS ORDERED: FILTER, DISP 1.2 MICRON FOR TPN/PVN IV PRN (17:00)
[2018-05-03] MEDS ORDERED: [UNRECOGNIZED DRUG - OTHER] IV SCH (17:00)
[2018-05-03 20:05] VITALS: BP 141/78
[2018-05-03] MEDS: MICAFUNGIN 100 MG in SODIUM CHLORIDE 0.9% 100 ML IV SCH (21:41)
[2018-05-04 03:03] VITALS: BP 180/61
[2018-05-04] MEDS: AMPICILLIN/SULBACTAM 3 GM in SODIUM CHLORIDE 0.9% 100 ML IV SCH ×4 (03:06→21:30)
[2018-05-04 05:30] LABS: ALBUMIN 1.7 g/dL (3.4-5.0); ANION GAP 7 mmol/L (5-15); CALCIUM 8.4 mg/dL (8.5-10.1); CHLORIDE 114 mmol/L (98-107); CREATININE 0.66 mg/dL (0.55-1.02)
[2018-05-04 05:34] LABS: BASOPHILS % (AUTO) 0 % (0-1); EOSINOPHILS % (AUTO) 0 % (1-7); LYMPHOCYTES # (AUTO) 0.44 x10^3/uL (1-3.4); LYMPHOCYTES % (AUTO) 3 % (22-44); MD NO; MEAN CORPUSCULAR HEMOGLOBIN 29.3 pg (27.0-34.8); MEAN CORPUSCULAR VOLUME 88.7 fL (80-100); MEAN PLATELET VOLUME 9.2 fL (7.4-10.4); MONOCYTES # (AUTO) 0.41 x10^3/uL (0.2-0.8); MONOCYTES % (AUTO) 3 % (2-9); NEUTROPHILS # (AUTO) 12.39 x10^3/uL (1.8-6.8); NEUTROPHILS % (AUTO) 94 % (42-75); PLATELET COUNT 240 x10^3/uL (130-400); RED BLOOD COUNT 2.66 x10^6/uL (3.82-5.3); RED CELL DISTRIBUTION WIDTH 18.8 % (9.6-15.2)
[2018-05-04] MEDS: INSULIN LISPRO 100 UNITS/ML, PEN SQ-INSULIN SCH (06:44)
[2018-05-04 06:59] VITALS: BP 173/75
[2018-05-04] MEDS: LIOTHYRONINE 5 MCG TABLET PO SCH (08:22)
[2018-05-04] MEDS: CALCIUM CARBONATE 500 MG TAB.CHEW PO SCH (08:22)
[2018-05-04] MEDS: CHOLECALCIFEROL 5,000u TAB PO SCH (08:23)
[2018-05-04] MEDS: AMLODIPINE 2.5 MG TABLET PO SCH (08:23)
[2018-05-04] MEDS: SERTRALINE 100MG TABLET PO SCH (08:24)
[2018-05-04] MEDS: FLUDROCORTISONE 0.1 MG TABLET PO SCH (08:24)
[2018-05-04] MEDS: LEVOTHYROXINE 50 MCG TABLET PO SCH (08:24)
[2018-05-04] MEDS: MAGNESIUM OXIDE 400 MG TABLET PO SCH (08:24)
[2018-05-04] MEDS: ACETAMINOPHEN 500 MG TABLET PO PRN ×2 (10:24→13:15)
[2018-05-04 12:33] VITALS: BP 177/78
[2018-05-04] MEDS ORDERED: [UNRECOGNIZED DRUG - OTHER] IV SCH (17:00)
[2018-05-04] MEDS ORDERED: FAT EMUL IV SCH (17:00)
[2018-05-04] MEDS ORDERED: DEXTROSE 70% IV SCH (17:00)
[2018-05-04] MEDS ORDERED: SMOF TPN IV SCH (17:00)
[2018-05-04] MEDS ORDERED: AMINO ACID 10% IV SCH (17:00)
[2018-05-04 21:04] VITALS: BP 146/65
[2018-05-04] MEDS: MICAFUNGIN 100 MG in SODIUM CHLORIDE 0.9% 100 ML IV SCH (22:51)
[2018-05-05] MEDS: AMPICILLIN/SULBACTAM 3 GM in SODIUM CHLORIDE 0.9% 100 ML IV SCH ×4 (03:07→21:17)
[2018-05-05 03:21] VITALS: BP 163/80
[2018-05-05 06:03] LABS: BASOPHILS # (AUTO) 0.02 x10^3/uL (0-0.1); BASOPHILS % (AUTO) 0 % (0-1); EOSINOPHILS # (AUTO) 0.01 x10^3/uL (0-0.4); EOSINOPHILS % (AUTO) 0 % (1-7); LYMPHOCYTES # (AUTO) 0.43 x10^3/uL (1-3.4); LYMPHOCYTES % (AUTO) 4 % (22-44); MD NO; MEAN CORPUSCULAR HEMOGLOBIN 29.9 pg (27.0-34.8); MEAN CORPUSCULAR HGB CONC 33.2 g/dL (32.4-35.8); MEAN CORPUSCULAR VOLUME 90.1 fL (80-100); MEAN PLATELET VOLUME 8.9 fL (7.4-10.4); MONOCYTES # (AUTO) 0.55 x10^3/uL (0.2-0.8); MONOCYTES % (AUTO) 5 % (2-9); NEUTROPHILS # (AUTO) 11.29 x10^3/uL (1.8-6.8); NEUTROPHILS % (AUTO) 92 % (42-75); PLATELET COUNT 232 x10^3/uL (130-400); RED BLOOD COUNT 2.74 x10^6/uL (3.82-5.3); RED CELL DISTRIBUTION WIDTH 18.5 % (9.6-15.2)
[2018-05-05 06:17] LABS: ALBUMIN 1.6 g/dL (3.4-5.0); ANION GAP 10 mmol/L (5-15); CALCIUM 8.4 mg/dL (8.5-10.1); CHLORIDE 111 mmol/L (98-107)
[2018-05-05 06:19] LABS: ALANINE AMINOTRANSFERASE 33 U/L (12-78); ALKALINE PHOSPHATASE 141 U/L (45-117); BILIRUBIN,TOTAL 0.3 mg/dL (0.2-1.0); TOTAL PROTEIN 5.3 g/dL (6.4-8.2)
[2018-05-05 08:00] VITALS: BP 139/86
[2018-05-05] MEDS ORDERED: BUPIVACAINE/PF 0.5% ONE (08:19)
[2018-05-05] MEDS ORDERED: EPINEPHRINE 1 MG/ML, 1ML ONE (08:20)
[2018-05-05] MEDS: LEVOTHYROXINE 50 MCG TABLET PO SCH (08:52)
[2018-05-05] MEDS: FLUDROCORTISONE 0.1 MG TABLET PO SCH (08:52)
[2018-05-05] MEDS: MAGNESIUM OXIDE 400 MG TABLET PO SCH (08:52)
[2018-05-05] MEDS: LIOTHYRONINE 5 MCG TABLET PO SCH (08:52)
[2018-05-05] MEDS: AMLODIPINE 2.5 MG TABLET PO SCH (08:52)
[2018-05-05] MEDS: CALCIUM CARBONATE 500 MG TAB.CHEW PO SCH (08:53)
[2018-05-05] MEDS: INSULIN LISPRO 100 UNITS/ML, PEN SQ-INSULIN SCH (08:53)
[2018-05-05] MEDS: CHOLECALCIFEROL 5,000u TAB PO SCH (08:53)
[2018-05-05] MEDS: SERTRALINE 100MG TABLET PO SCH (08:53)
[2018-05-05] MEDS ORDERED: FENTANYL PF 100 MCG/2ML ONE ×2 (09:32→11:14)
[2018-05-05] MEDS ORDERED: LABETALOL 5MG/ML, 20ML IV PRN (10:30)
[2018-05-05] MEDS ORDERED: hydrALAzine 20 MG/ML, 1ML IV PRN (10:30)
[2018-05-05] MEDS ORDERED: PROMETHAZINE 25 MG/ML, 1ML IV PRN (10:30)
[2018-05-05] MEDS ORDERED: HYDROmorphone 2 MG/ML, 1ML IVPush PRN (10:30)
[2018-05-05] MEDS ORDERED: OXYcodone 5 MG/5 ML ORAL.SOL UDC PO PRN (10:30)
[2018-05-05] MEDS ORDERED: HALOPERIDOL 5 MG/ML IV PRN (10:30)
[2018-05-05] MEDS ORDERED: ALBUTEROL SULFATE 2.5 MG/3 ML NPPB PRN (10:30)
[2018-05-05] MEDS ORDERED: DEXAMETHASONE 4 MG/ML, 1ML ONE (10:59)
[2018-05-05] MEDS ORDERED: SUCCINYLCHOLINE 20 MG/ML, 10ML ONE (10:59)
[2018-05-05] MEDS ORDERED: ONDANSETRON 2MG/ML, 2ML ONE (10:59)
[2018-05-05] MEDS ORDERED: PROPOFOL 10 MG/ML, 20ML ONE (10:59)
[2018-05-05] MEDS ORDERED: OXYcodone 5 MG/5 ML ORAL.SOL UDC ONE (11:13)
[2018-05-05] MEDS: FENTANYL PF 100 MCG/2ML IV PRN ×2 (11:15→11:40)
[2018-05-05 13:33] VITALS: BP 144/75
[2018-05-05] MEDS: ACETAMINOPHEN 500 MG TABLET PO PRN ×2 (14:53→21:17)
[2018-05-05] MEDS ORDERED: AMINO ACID 10% IV SCH (17:00)
[2018-05-05] MEDS ORDERED: DEXTROSE 70% IV SCH (17:00)
[2018-05-05] MEDS ORDERED: [UNRECOGNIZED DRUG - OTHER] IV SCH (17:00)
[2018-05-05] MEDS ORDERED: SMOF TPN IV SCH (17:00)
[2018-05-05] MEDS ORDERED: FAT EMUL IV SCH (17:00)
[2018-05-05 20:13] VITALS: BP 126/71
[2018-05-05] MEDS: MICAFUNGIN 100 MG in SODIUM CHLORIDE 0.9% 100 ML IV SCH (23:01)
[2018-05-06 02:30] VITALS: BP 150/75
[2018-05-06] MEDS: AMPICILLIN/SULBACTAM 3 GM in SODIUM CHLORIDE 0.9% 100 ML IV SCH ×4 (02:52→20:50)
[2018-05-06] MEDS: ACETAMINOPHEN 500 MG TABLET PO PRN ×3 (02:52→14:51)
[2018-05-06 05:28] LABS: ALBUMIN 1.7 g/dL (3.4-5.0); ANION GAP 8 mmol/L (5-15); CALCIUM 8.1 mg/dL (8.5-10.1); CHLORIDE 112 mmol/L (98-107)
[2018-05-06 05:33] LABS: ALANINE AMINOTRANSFERASE 29 U/L (12-78); ALKALINE PHOSPHATASE 128 U/L (45-117); BILIRUBIN,TOTAL 0.3 mg/dL (0.2-1.0); CREATININE 0.73 mg/dL (0.55-1.02); PREALBUMIN 30.9 mg/dL (20.0-40.0); TOTAL PROTEIN 4.9 g/dL (6.4-8.2); TRIGLYCERIDES 147 mg/dL (50-200)
[2018-05-06 07:04] VITALS: BP 167/76
[2018-05-06] MEDS: FLUDROCORTISONE 0.1 MG TABLET PO SCH (08:08)
[2018-05-06] MEDS: AMLODIPINE 2.5 MG TABLET PO SCH (08:08)
[2018-05-06] MEDS: MAGNESIUM OXIDE 400 MG TABLET PO SCH (08:08)
[2018-05-06] MEDS: SERTRALINE 100MG TABLET PO SCH (08:08)
[2018-05-06] MEDS: CHOLECALCIFEROL 5,000u TAB PO SCH (08:08)
[2018-05-06] MEDS: CALCIUM CARBONATE 500 MG TAB.CHEW PO SCH (08:09)
[2018-05-06] MEDS: LEVOTHYROXINE 50 MCG TABLET PO SCH (08:09)
[2018-05-06] MEDS: LIOTHYRONINE 5 MCG TABLET PO SCH (08:09)
[2018-05-06] MEDS: INSULIN LISPRO 100 UNITS/ML, PEN SQ-INSULIN SCH (08:15)
[2018-05-06 12:52] VITALS: BP 163/77
[2018-05-06] MEDS: FILTER, DISP 1.2 MICRON FOR TPN/PVN IV PRN (16:24)
[2018-05-06] MEDS ORDERED: SMOF TPN IV SCH (17:00)
[2018-05-06] MEDS ORDERED: FAT EMUL IV SCH (17:00)
[2018-05-06] MEDS ORDERED: DEXTROSE 70% IV SCH (17:00)
[2018-05-06] MEDS ORDERED: [UNRECOGNIZED DRUG - OTHER] IV SCH (17:00)
[2018-05-06] MEDS ORDERED: AMINO ACID 10% IV SCH (17:00)
[2018-05-06 20:02] VITALS: BP 156/76
[2018-05-06] MEDS: MICAFUNGIN 100 MG in SODIUM CHLORIDE 0.9% 100 ML IV SCH (23:15)
[2018-05-07] MEDS: ACETAMINOPHEN 500 MG TABLET PO PRN ×4 (00:14→20:27)
[2018-05-07 02:34] VITALS: BP 158/76
[2018-05-07] MEDS: AMPICILLIN/SULBACTAM 3 GM in SODIUM CHLORIDE 0.9% 100 ML IV SCH ×4 (03:02→20:27)
[2018-05-07 05:14] LABS: BASOPHILS % (AUTO) 0 % (0-1); EOSINOPHILS # (AUTO) 0.01 x10^3/uL (0-0.4); EOSINOPHILS % (AUTO) 0 % (1-7); LYMPHOCYTES # (AUTO) 0.46 x10^3/uL (1-3.4); LYMPHOCYTES % (AUTO) 4 % (22-44); MD NO; MEAN CORPUSCULAR HEMOGLOBIN 30.1 pg (27.0-34.8); MEAN CORPUSCULAR HGB CONC 33.3 g/dL (32.4-35.8); MEAN CORPUSCULAR VOLUME 90.2 fL (80-100); MEAN PLATELET VOLUME 8.8 fL (7.4-10.4); MONOCYTES # (AUTO) 0.49 x10^3/uL (0.2-0.8); MONOCYTES % (AUTO) 5 % (2-9); NEUTROPHILS # (AUTO) 9.68 x10^3/uL (1.8-6.8); NEUTROPHILS % (AUTO) 91 % (42-75); PLATELET COUNT 244 x10^3/uL (130-400); RED BLOOD COUNT 2.67 x10^6/uL (3.82-5.3); RED CELL DISTRIBUTION WIDTH 18.9 % (9.6-15.2)
[2018-05-07 05:22] LABS: CHLORIDE 113 mmol/L (98-107)
[2018-05-07 05:31] LABS: ALANINE AMINOTRANSFERASE 29 U/L (12-78); ALBUMIN 1.7 g/dL (3.4-5.0); ALKALINE PHOSPHATASE 124 U/L (45-117); BILIRUBIN,TOTAL 0.3 mg/dL (0.2-1.0); CALCIUM 8.4 mg/dL (8.5-10.1); CREATININE 0.62 mg/dL (0.55-1.02)
[2018-05-07 05:35] LABS: ANION GAP 10 mmol/L (5-15)
[2018-05-07 06:44] VITALS: BP 152/84
[2018-05-07] MEDS: MAGNESIUM OXIDE 400 MG TABLET PO SCH (08:38)
[2018-05-07] MEDS: AMLODIPINE 2.5 MG TABLET PO SCH (08:38)
[2018-05-07] MEDS: SERTRALINE 100MG TABLET PO SCH (08:38)
[2018-05-07] MEDS: LIOTHYRONINE 5 MCG TABLET PO SCH (08:38)
[2018-05-07] MEDS: FLUDROCORTISONE 0.1 MG TABLET PO SCH (08:38)
[2018-05-07] MEDS: LEVOTHYROXINE 50 MCG TABLET PO SCH (08:39)
[2018-05-07] MEDS: CALCIUM CARBONATE 500 MG TAB.CHEW PO SCH (08:39)
[2018-05-07] MEDS: CHOLECALCIFEROL 5,000u TAB PO SCH (08:39)
[2018-05-07] MEDS: BUPROPION SR 150 MG TABLET PO SCH ×2 (09:00→20:26)
[2018-05-07] MEDS: INSULIN LISPRO 100 UNITS/ML, PEN SQ-INSULIN SCH (09:00)
[2018-05-07 12:00] VITALS: BP 161/84
[2018-05-07] MEDS ORDERED: ENOXAPARIN 80 MG/0.8 ML SQ SCH (12:00)
[2018-05-07] MEDS: HEPARIN 5,000 UNITS/ML, 1ML SQ SCH ×2 (12:29→20:27)
[2018-05-07] MEDS: SMOF TPN IV SCH (17:24)
[2018-05-07] MEDS: [UNRECOGNIZED DRUG - OTHER] IV SCH (17:24)
[2018-05-07] MEDS: AMINO ACID 10% IV SCH (17:24)
[2018-05-07] MEDS: FILTER, DISP 1.2 MICRON FOR TPN/PVN IV PRN (17:24)
[2018-05-07] MEDS: DEXTROSE 70% IV SCH (17:24)
[2018-05-07] MEDS: FAT EMUL IV SCH (17:24)
[2018-05-07 20:00] VITALS: BP 168/90
[2018-05-07] MEDS: MICAFUNGIN 100 MG in SODIUM CHLORIDE 0.9% 100 ML IV SCH (23:39)
[2018-05-08 02:00] VITALS: BP 156/80
[2018-05-08] MEDS: AMPICILLIN/SULBACTAM 3 GM in SODIUM CHLORIDE 0.9% 100 ML IV SCH ×4 (03:40→20:28)
[2018-05-08] MEDS: HEPARIN 5,000 UNITS/ML, 1ML SQ SCH ×3 (04:36→20:28)
[2018-05-08 06:37] LABS: MEAN CORPUSCULAR HEMOGLOBIN 29.5 pg (27.0-34.8); MEAN CORPUSCULAR HGB CONC 32.8 g/dL (32.4-35.8); MEAN CORPUSCULAR VOLUME 89.9 fL (80-100); MEAN PLATELET VOLUME 9.1 fL (7.4-10.4); PLATELET COUNT 239 x10^3/uL (130-400); RED BLOOD COUNT 2.75 x10^6/uL (3.82-5.3); RED CELL DISTRIBUTION WIDTH 18.5 % (9.6-15.2)
[2018-05-08 06:41] LABS: ALBUMIN 1.8 g/dL (3.4-5.0); ANION GAP 8 mmol/L (5-15); CALCIUM 8.3 mg/dL (8.5-10.1); CHLORIDE 113 mmol/L (98-107)
[2018-05-08 06:42] LABS: CREATININE 0.69 mg/dL (0.55-1.02)
[2018-05-08 06:50] VITALS: BP 153/80
[2018-05-08 07:00] LABS: BASOPHILS # (AUTO) 0.01 x10^3/uL (0-0.1); BASOPHILS % (AUTO) 0 % (0-1); EOSINOPHILS % (AUTO) 0 % (1-7); LYMPHOCYTES # (AUTO) 0.56 x10^3/uL (1-3.4); LYMPHOCYTES % (AUTO) 7 % (22-44); MD SCAN; MONOCYTES # (AUTO) 0.48 x10^3/uL (0.2-0.8); MONOCYTES % (AUTO) 6 % (2-9); NEUTROPHILS # (AUTO) 6.74 x10^3/uL (1.8-6.8); NEUTROPHILS % (AUTO) 87 % (42-75)
[2018-05-08] MEDS: FLUDROCORTISONE 0.1 MG TABLET PO SCH (09:00)
[2018-05-08] MEDS: BUPROPION SR 150 MG TABLET PO SCH ×2 (09:00→20:28)
[2018-05-08] MEDS: CALCIUM CARBONATE 500 MG TAB.CHEW PO SCH (09:00)
[2018-05-08] MEDS: CHOLECALCIFEROL 5,000u TAB PO SCH (09:00)
[2018-05-08] MEDS: INSULIN LISPRO 100 UNITS/ML, PEN SQ-INSULIN SCH (09:00)
[2018-05-08] MEDS: SERTRALINE 100MG TABLET PO SCH (09:00)
[2018-05-08] MEDS: MAGNESIUM OXIDE 400 MG TABLET PO SCH (09:00)
[2018-05-08] MEDS: LIOTHYRONINE 5 MCG TABLET PO SCH (09:36)
[2018-05-08] MEDS: LEVOTHYROXINE 50 MCG TABLET PO SCH (09:36)
[2018-05-08] MEDS: AMLODIPINE 5 MG TABLET PO SCH (09:45)
[2018-05-08 13:16] VITALS: BP 144/72
[2018-05-08] MEDS: ACETAMINOPHEN 500 MG TABLET PO PRN (15:38)
[2018-05-08] MEDS: [UNRECOGNIZED DRUG - OTHER] IV SCH (17:00)
[2018-05-08] MEDS: FAT EMUL IV SCH (17:00)
[2018-05-08] MEDS: DEXTROSE 70% IV SCH (17:00)
[2018-05-08] MEDS: AMINO ACID 10% IV SCH (17:00)
[2018-05-08] MEDS: SMOF TPN IV SCH (17:00)
[2018-05-08 19:58] VITALS: BP 114/74
[2018-05-08] MEDS: MICAFUNGIN 100 MG in SODIUM CHLORIDE 0.9% 100 ML IV SCH (23:12)
[2018-05-09 02:17] VITALS: BP 144/77
[2018-05-09] MEDS: AMPICILLIN/SULBACTAM 3 GM in SODIUM CHLORIDE 0.9% 100 ML IV SCH ×4 (02:46→21:34)
[2018-05-09] MEDS: HEPARIN 5,000 UNITS/ML, 1ML SQ SCH ×3 (05:22→21:35)
[2018-05-09 05:26] LABS: BASOPHILS # (AUTO) 0.01 x10^3/uL (0-0.1); BASOPHILS % (AUTO) 0 % (0-1); EOSINOPHILS # (AUTO) 0.03 x10^3/uL (0-0.4); EOSINOPHILS % (AUTO) 0 % (1-7); LYMPHOCYTES # (AUTO) 0.55 x10^3/uL (1-3.4); LYMPHOCYTES % (AUTO) 5 % (22-44); MD NO; MEAN CORPUSCULAR HEMOGLOBIN 29.8 pg (27.0-34.8); MEAN CORPUSCULAR VOLUME 90.3 fL (80-100); MEAN PLATELET VOLUME 9.2 fL (7.4-10.4); MONOCYTES # (AUTO) 0.36 x10^3/uL (0.2-0.8); MONOCYTES % (AUTO) 3 % (2-9); NEUTROPHILS # (AUTO) 10.69 x10^3/uL (1.8-6.8); NEUTROPHILS % (AUTO) 92 % (42-75); PLATELET COUNT 248 x10^3/uL (130-400); RED CELL DISTRIBUTION WIDTH 18.1 % (9.6-15.2)
[2018-05-09 05:30] LABS: ALBUMIN 1.8 g/dL (3.4-5.0); ANION GAP 7 mmol/L (5-15); CHLORIDE 115 mmol/L (98-107)
[2018-05-09 05:33] LABS: CREATININE 0.74 mg/dL (0.55-1.02)
[2018-05-09 08:37] VITALS: BP 150/83
[2018-05-09] MEDS: MAGNESIUM OXIDE 400 MG TABLET PO SCH (09:00)
[2018-05-09] MEDS: BUPROPION SR 150 MG TABLET PO SCH ×2 (09:00→21:35)
[2018-05-09] MEDS: SERTRALINE 100MG TABLET PO SCH (09:00)
[2018-05-09] MEDS: CALCIUM CARBONATE 500 MG TAB.CHEW PO SCH (09:00)
[2018-05-09] MEDS: INSULIN LISPRO 100 UNITS/ML, PEN SQ-INSULIN SCH (09:00)
[2018-05-09] MEDS: FLUDROCORTISONE 0.1 MG TABLET PO SCH (09:00)
[2018-05-09] MEDS: CHOLECALCIFEROL 5,000u TAB PO SCH (09:00)
[2018-05-09] MEDS: AMLODIPINE 5 MG TABLET PO SCH (09:11)
[2018-05-09] MEDS: LIOTHYRONINE 5 MCG TABLET PO SCH (09:11)
[2018-05-09] MEDS: LEVOTHYROXINE 50 MCG TABLET PO SCH (09:11)
[2018-05-09 15:16] VITALS: BP 155/82
[2018-05-09] MEDS: [UNRECOGNIZED DRUG - OTHER] IV SCH (17:00)
[2018-05-09] MEDS: SMOF TPN IV SCH (17:00)
[2018-05-09] MEDS: DEXTROSE 70% IV SCH (17:00)
[2018-05-09] MEDS: FAT EMUL IV SCH (17:00)
[2018-05-09] MEDS: AMINO ACID 10% IV SCH (17:00)
[2018-05-09] MEDS: FILTER, DISP 1.2 MICRON FOR TPN/PVN IV PRN (17:03)
[2018-05-09] MEDS: ACETAMINOPHEN 500 MG TABLET PO PRN ×2 (17:06→21:35)
[2018-05-09 19:06] VITALS: BP 128/74
[2018-05-10] MEDS: MICAFUNGIN 100 MG in SODIUM CHLORIDE 0.9% 100 ML IV SCH
[2018-05-10 01:25] VITALS: BP 150/76
[2018-05-10] MEDS: AMPICILLIN/SULBACTAM 3 GM in SODIUM CHLORIDE 0.9% 100 ML IV SCH ×4 (03:06→20:17)
[2018-05-10] MEDS: HEPARIN 5,000 UNITS/ML, 1ML SQ SCH ×3 (05:30→14:50)
[2018-05-10 06:31] LABS: CHLORIDE 116 mmol/L (98-107)
[2018-05-10 06:39] LABS: ALBUMIN 1.6 g/dL (3.4-5.0); ANION GAP 10 mmol/L (5-15); CALCIUM 8.4 mg/dL (8.5-10.1); CREATININE 0.74 mg/dL (0.55-1.02)
[2018-05-10 07:10] VITALS: BP 151/75
[2018-05-10] MEDS: FLUDROCORTISONE 0.1 MG TABLET PO SCH (08:55)
[2018-05-10] MEDS: MAGNESIUM OXIDE 400 MG TABLET PO SCH (08:55)
[2018-05-10] MEDS: LIOTHYRONINE 5 MCG TABLET PO SCH (08:55)
[2018-05-10] MEDS: CALCIUM CARBONATE 500 MG TAB.CHEW PO SCH (08:56)
[2018-05-10] MEDS: CHOLECALCIFEROL 5,000u TAB PO SCH (08:56)
[2018-05-10] MEDS: LEVOTHYROXINE 50 MCG TABLET PO SCH (08:56)
[2018-05-10] MEDS: AMLODIPINE 5 MG TABLET PO SCH (08:56)
[2018-05-10] MEDS: SERTRALINE 100MG TABLET PO SCH (08:56)
[2018-05-10] MEDS: BUPROPION SR 150 MG TABLET PO SCH ×2 (08:56→20:17)
[2018-05-10] MEDS: ACETAMINOPHEN 500 MG TABLET PO PRN ×2 (09:48→17:25)
[2018-05-10 15:42] VITALS: BP 132/79
[2018-05-10 18:58] VITALS: BP 126/72
[2018-05-10] MEDS: FAMOTIDINE 20 MG TABLET PO SCH (20:18)
[2018-05-11] MEDS: HEPARIN 5,000 UNITS/ML, 1ML SQ SCH ×4 (00:21→23:46)
[2018-05-11] MEDS: MICAFUNGIN 100 MG in SODIUM CHLORIDE 0.9% 100 ML IV SCH ×2 (00:21→23:45)
[2018-05-11 03:07] VITALS: BP 152/80
[2018-05-11] MEDS: AMPICILLIN/SULBACTAM 3 GM in SODIUM CHLORIDE 0.9% 100 ML IV SCH ×4 (03:15→22:34)
[2018-05-11 06:07] LABS: BASOPHILS % (AUTO) 0 % (0-1); EOSINOPHILS % (AUTO) 0 % (1-7); LYMPHOCYTES # (AUTO) 0.54 x10^3/uL (1-3.4); LYMPHOCYTES % (AUTO) 6 % (22-44); MD NO; MEAN CORPUSCULAR HEMOGLOBIN 30.2 pg (27.0-34.8); MEAN CORPUSCULAR HGB CONC 33.8 g/dL (32.4-35.8); MEAN CORPUSCULAR VOLUME 89.3 fL (80-100); MEAN PLATELET VOLUME 8.7 fL (7.4-10.4); MONOCYTES % (AUTO) 4 % (2-9); NEUTROPHILS # (AUTO) 8.64 x10^3/uL (1.8-6.8); NEUTROPHILS % (AUTO) 90 % (42-75); PLATELET COUNT 235 x10^3/uL (130-400); RED BLOOD COUNT 2.85 x10^6/uL (3.82-5.3); RED CELL DISTRIBUTION WIDTH 17.2 % (9.6-15.2)
[2018-05-11 06:16] LABS: ALBUMIN 1.8 g/dL (3.4-5.0); ANION GAP 8 mmol/L (5-15); CALCIUM 8.8 mg/dL (8.5-10.1); CHLORIDE 117 mmol/L (98-107); CREATININE 0.82 mg/dL (0.55-1.02)
[2018-05-11 07:05] VITALS: BP 149/76
[2018-05-11] MEDS: LIOTHYRONINE 5 MCG TABLET PO SCH (07:39)
[2018-05-11] MEDS: FLUDROCORTISONE 0.1 MG TABLET PO SCH (07:41)
[2018-05-11] MEDS: MAGNESIUM OXIDE 400 MG TABLET PO SCH (07:41)
[2018-05-11] MEDS: SERTRALINE 100MG TABLET PO SCH (07:42)
[2018-05-11] MEDS: FAMOTIDINE 20 MG TABLET PO SCH ×2 (07:42→20:57)
[2018-05-11] MEDS: BUPROPION SR 150 MG TABLET PO SCH ×2 (07:42→20:57)
[2018-05-11] MEDS: LEVOTHYROXINE 50 MCG TABLET PO SCH (07:42)
[2018-05-11] MEDS: CALCIUM CARBONATE 500 MG TAB.CHEW PO SCH (07:42)
[2018-05-11] MEDS: AMLODIPINE 5 MG TABLET PO SCH (07:42)
[2018-05-11] MEDS: CHOLECALCIFEROL 5,000u TAB PO SCH (07:42)
[2018-05-11 14:55] VITALS: BP 133/70
[2018-05-11 18:27] VITALS: BP 156/71
[2018-05-11] MEDS: ACETAMINOPHEN 500 MG TABLET PO PRN (20:57)
[2018-05-12 01:20] VITALS: BP 158/79
[2018-05-12] MEDS: AMPICILLIN/SULBACTAM 3 GM in SODIUM CHLORIDE 0.9% 100 ML IV SCH ×4 (04:11→22:23)
[2018-05-12 06:37] LABS: ALBUMIN 1.8 g/dL (3.4-5.0); ANION GAP 9 mmol/L (5-15); CALCIUM 8.5 mg/dL (8.5-10.1); CHLORIDE 116 mmol/L (98-107); CREATININE 0.73 mg/dL (0.55-1.02)
[2018-05-12 06:48] VITALS: BP 158/76
[2018-05-12] MEDS: HEPARIN 5,000 UNITS/ML, 1ML SQ SCH ×2 (08:31→16:48)
[2018-05-12] MEDS: LIOTHYRONINE 5 MCG TABLET PO SCH (08:38)
[2018-05-12] MEDS: AMLODIPINE 5 MG TABLET PO SCH (08:38)
[2018-05-12] MEDS: MAGNESIUM OXIDE 400 MG TABLET PO SCH (08:38)
[2018-05-12] MEDS: FLUDROCORTISONE 0.1 MG TABLET PO SCH (08:38)
[2018-05-12] MEDS: LEVOTHYROXINE 50 MCG TABLET PO SCH (08:39)
[2018-05-12] MEDS: FAMOTIDINE 20 MG TABLET PO SCH ×2 (08:39→20:49)
[2018-05-12] MEDS: BUPROPION SR 150 MG TABLET PO SCH ×2 (08:40→20:49)
[2018-05-12] MEDS: CHOLECALCIFEROL 5,000u TAB PO SCH (08:40)
[2018-05-12] MEDS: CALCIUM CARBONATE 500 MG TAB.CHEW PO SCH (08:40)
[2018-05-12] MEDS: SERTRALINE 100MG TABLET PO SCH (08:41)
[2018-05-12] MEDS: ACETAMINOPHEN 500 MG TABLET PO PRN (11:04)
[2018-05-12 15:58] VITALS: BP 138/75
[2018-05-12 19:27] VITALS: BP 144/74
[2018-05-12] MEDS: MICAFUNGIN 100 MG in SODIUM CHLORIDE 0.9% 100 ML IV SCH (23:05)
[2018-05-13] MEDS: HEPARIN 5,000 UNITS/ML, 1ML SQ SCH ×3 (00:58→16:40)
[2018-05-13 03:11] VITALS: BP 160/79
[2018-05-13] MEDS: AMPICILLIN/SULBACTAM 3 GM in SODIUM CHLORIDE 0.9% 100 ML IV SCH ×4 (04:43→22:41)
[2018-05-13 05:56] LABS: BASOPHILS % (AUTO) 0 % (0-1); EOSINOPHILS % (AUTO) 0 % (1-7); LYMPHOCYTES # (AUTO) 0.44 x10^3/uL (1-3.4); LYMPHOCYTES % (AUTO) 6 % (22-44); MD NO; MEAN CORPUSCULAR HEMOGLOBIN 29.6 pg (27.0-34.8); MEAN CORPUSCULAR HGB CONC 33.8 g/dL (32.4-35.8); MEAN CORPUSCULAR VOLUME 87.8 fL (80-100); MEAN PLATELET VOLUME 8.7 fL (7.4-10.4); MONOCYTES # (AUTO) 0.33 x10^3/uL (0.2-0.8); MONOCYTES % (AUTO) 5 % (2-9); NEUTROPHILS # (AUTO) 6.09 x10^3/uL (1.8-6.8); NEUTROPHILS % (AUTO) 89 % (42-75); PLATELET COUNT 216 x10^3/uL (130-400); RED BLOOD COUNT 2.94 x10^6/uL (3.82-5.3)
[2018-05-13 05:57] LABS: CHLORIDE 117 mmol/L (98-107)
[2018-05-13 06:56] LABS: CALCIUM 9.1 mg/dL (8.5-10.1)
[2018-05-13 07:05] LABS: ALANINE AMINOTRANSFERASE 25 U/L (12-78); ALBUMIN 1.9 g/dL (3.4-5.0); BILIRUBIN,TOTAL 0.3 mg/dL (0.2-1.0)
[2018-05-13 07:06] LABS: ALKALINE PHOSPHATASE 126 U/L (45-117); ANION GAP 11 mmol/L (5-15); CREATININE 0.75 mg/dL (0.55-1.02); TOTAL PROTEIN 5.5 g/dL (6.4-8.2)
[2018-05-13 07:45] VITALS: BP 164/93
[2018-05-13] MEDS: CALCIUM CARBONATE 500 MG TAB.CHEW PO SCH (07:50)
[2018-05-13] MEDS: MAGNESIUM OXIDE 400 MG TABLET PO SCH (07:51)
[2018-05-13] MEDS: FLUDROCORTISONE 0.1 MG TABLET PO SCH (07:51)
[2018-05-13] MEDS: LEVOTHYROXINE 50 MCG TABLET PO SCH (07:51)
[2018-05-13] MEDS: LIOTHYRONINE 5 MCG TABLET PO SCH (07:51)
[2018-05-13] MEDS: FAMOTIDINE 20 MG TABLET PO SCH ×2 (07:51→20:37)
[2018-05-13] MEDS: CHOLECALCIFEROL 5,000u TAB PO SCH (07:51)
[2018-05-13] MEDS: AMLODIPINE 5 MG TABLET PO SCH (07:52)
[2018-05-13] MEDS: SERTRALINE 100MG TABLET PO SCH (07:52)
[2018-05-13] MEDS: BUPROPION SR 150 MG TABLET PO SCH ×2 (07:52→20:37)
[2018-05-13 13:21] VITALS: BP 126/77
[2018-05-13 13:52] VITALS: BP 145/81
[2018-05-13] MEDS: ACETAMINOPHEN 500 MG TABLET PO PRN ×2 (14:24→20:37)
[2018-05-13 19:06] VITALS: BP 126/77
[2018-05-13] MEDS: MICAFUNGIN 100 MG in SODIUM CHLORIDE 0.9% 100 ML IV SCH (23:35)
[2018-05-14] MEDS: HEPARIN 5,000 UNITS/ML, 1ML SQ SCH ×2 (00:24→07:58)
[2018-05-14 02:13] VITALS: BP 153/76
[2018-05-14] MEDS: AMPICILLIN/SULBACTAM 3 GM in SODIUM CHLORIDE 0.9% 100 ML IV SCH ×2 (04:37→10:21)
[2018-05-14 06:08] LABS: ANION GAP 9 mmol/L (5-15); CALCIUM 8.6 mg/dL (8.5-10.1); CHLORIDE 116 mmol/L (98-107); CREATININE 0.78 mg/dL (0.55-1.02)
[2018-05-14 06:59] VITALS: BP 154/71
[2018-05-14 07:50] VITALS: BP 148/80
[2018-05-14] MEDS: CHOLECALCIFEROL 5,000u TAB PO SCH (07:53)
[2018-05-14] MEDS: ACETAMINOPHEN 500 MG TABLET PO PRN (07:53)
[2018-05-14] MEDS: LIOTHYRONINE 5 MCG TABLET PO SCH (07:53)
[2018-05-14] MEDS: CALCIUM CARBONATE 500 MG TAB.CHEW PO SCH (07:54)
[2018-05-14] MEDS: MAGNESIUM OXIDE 400 MG TABLET PO SCH (07:56)
[2018-05-14] MEDS: AMLODIPINE 5 MG TABLET PO SCH (07:56)
[2018-05-14] MEDS: FAMOTIDINE 20 MG TABLET PO SCH (07:56)
[2018-05-14] MEDS: SERTRALINE 100MG TABLET PO SCH (07:56)
[2018-05-14] MEDS: BUPROPION SR 150 MG TABLET PO SCH (07:56)
[2018-05-14] MEDS: LEVOTHYROXINE 50 MCG TABLET PO SCH (07:56)
[2018-05-14] MEDS: FLUDROCORTISONE 0.1 MG TABLET PO SCH (07:58)
[2018-05-14] MEDS ORDERED: MICA100V3 IV (12:01)
[2018-05-14] MEDS ORDERED: PRED5TAB PO (12:01)
[2018-05-14 13:53] VITALS: BP 132/78
== END 2018-05-14 15:23 | DRG 856 ==
LOC: 5SO 21:17 → 4NOR 04-22 21:57
PROVIDERS: ADMIT Hospitalist; ATTEND Family Medicine
PROC: 30233N1 Transfusion of Nonautologous Red Blood Cells into Peripheral Vein, Percutaneous Approach (ICD-10-PCS; 2018-04-19)
PROC: 06HY33Z Insertion of Infusion Device into Lower Vein, Percutaneous Approach (ICD-10-PCS; 2018-04-19)
PROC: 0WQFXZ2 Repair Abdominal Wall, Stoma, External Approach (ICD-10-PCS; principal; 2018-04-20 20:00)
PROC: 2W13X6Z Compression of Abdominal Wall using Pressure Dressing (ICD-10-PCS; 2018-04-22)
PROC: 2W03X6Z Change Pressure Dressing on Abdominal Wall (ICD-10-PCS; 2018-04-25)
PROC: 2W03X6Z Change Pressure Dressing on Abdominal Wall (ICD-10-PCS; 2018-04-28)
PROC: 2W03X6Z Change Pressure Dressing on Abdominal Wall (ICD-10-PCS; 2018-05-02)
PROC: 2W03X6Z Change Pressure Dressing on Abdominal Wall (ICD-10-PCS; 2018-05-05)
DX: T81.43XA Infection following a procedure, organ and space surgical site, initial encounter (principal); E43 Unspecified severe protein-calorie malnutrition; K65.9 Peritonitis, unspecified; K56.2 Volvulus; K65.1 Peritoneal abscess; T81.32XA Disruption of internal operation (surgical) wound, not elsewhere classified, initial encounter; T85.618A Breakdown (mechanical) of other specified internal prosthetic devices, implants and grafts, initial encounter; C64.9 Malignant neoplasm of unspecified kidney, except renal pelvis; E87.0 Hyperosmolality and hypernatremia; E87.1 Hypo-osmolality and hyponatremia; B37.89 Other sites of candidiasis; R53.81 Other malaise; E11.9 Type 2 diabetes mellitus without complications; E87.6 Hypokalemia; E83.51 Hypocalcemia; F32.9 Major depressive disorder, single episode, unspecified; E03.9 Hypothyroidism, unspecified; I48.91 Unspecified atrial fibrillation; I10 Essential (primary) hypertension; Y82.8 Other medical devices associated with adverse incidents; Z43.2 Encounter for attention to ileostomy; D64.9 Anemia, unspecified; Z79.2 Long term (current) use of antibiotics; Z85.528 Personal history of other malignant neoplasm of kidney; Z86.14 Personal history of Methicillin resistant Staphylococcus aureus infection; Z90.13 Acquired absence of bilateral breasts and nipples; Z90.49 Acquired absence of other specified parts of digestive tract; Z90.5 Acquired absence of kidney; Z90.710 Acquired absence of both cervix and uterus; Y92.89 Other specified places as the place of occurrence of the external cause; Z79.52 Long term (current) use of systemic steroids; Z79.899 Other long term (current) drug therapy; Z85.3 Personal history of malignant neoplasm of breast; Z87.01 Personal history of pneumonia (recurrent); Z86.73 Personal history of transient ischemic attack (TIA), and cerebral infarction without residual deficits
CPT/HCPCS: 36415; 74177; 74250; 80048; 80053; 82040; 82247; 82962; 83690; 83735; 84100; 84134; 84478; 85025; 85651; 86140; 86850; 86900; 86923; 87040; 87070; 87075; 87106; 87205; G0378; J0171; J0295; J0610; J1100; J1170; J1644; J1815; J2248; J2250; J2405; J2704; J2710; J2997; J3010; J3475; J3490; J7070; Q9967; J0330; J1450; J2270; J2370; J3420; J7030; J7040; J7512; P9016

== ENCOUNTER 2018-07-02 17:53 | Inpatient (IN) | payer MEDICARE, OTHER ==
[~2018-07-02] VITALS: Ht 160 cm; Wt 67.7 kg
[~2018-07-02 17:53] MED LIST changes: +AMLO-150 PO; -AMLO10TA6 PO; +AMLO10TA8 PO; +MICA100V3 IV; +SERT100T32 PO; -SERT100T5 PO
[2018-07-02] MEDS ORDERED: ONDANSETRON 2MG/ML, 2ML IVPush PRN (19:30)
[2018-07-02] MEDS ORDERED: ZOLPIDEM 5MG TABLET PO PRN (19:30)
[2018-07-02] MEDS ORDERED: PLEASE ENTER HEIGHT AND WEIGHT MC SCH (20:00)
[2018-07-02] MEDS ORDERED: CYTOMEL MC SCH (20:30)
[2018-07-02] MEDS: CIPROFLOXACIN 500 MG TABLET PO SCH (21:00)
[2018-07-02 21:03] VITALS: BP 117/76
[2018-07-02] MEDS: ENOXAPARIN 40 MG/0.4 ML SQ SCH (21:58)
[2018-07-02] MEDS: AMLODIPINE 5 MG TABLET PO SCH (21:58)
[2018-07-02] MEDS: ACETAMINOPHEN 325 MG TABLET PO PRN (21:58)
[2018-07-03 01:15] VITALS: BP 111/68
[2018-07-03 06:20] LABS: MEAN CORPUSCULAR HEMOGLOBIN 30.7 pg (27.0-34.8); MEAN CORPUSCULAR HGB CONC 34.1 g/dL (32.4-35.8); MEAN PLATELET VOLUME 7.8 fL (7.4-10.4); PLATELET COUNT 182 x10^3/uL (130-400); RED BLOOD COUNT 3.75 x10^6/uL (3.82-5.3); RED CELL DISTRIBUTION WIDTH 16.3 % (9.6-15.2)
[2018-07-03 06:32] LABS: ALANINE AMINOTRANSFERASE 46 U/L (12-78); ALBUMIN 2.3 g/dL (3.4-5.0); ANION GAP 7 mmol/L (5-15); CALCIUM 9.8 mg/dL (8.5-10.1); CHLORIDE 116 mmol/L (98-107)
[2018-07-03 06:40] LABS: BASOPHILS % (AUTO) 0 % (0-1); EOSINOPHILS # (AUTO) 0.02 x10^3/uL (0-0.4); EOSINOPHILS % (AUTO) 0 % (1-7); LYMPHOCYTES # (AUTO) 0.54 x10^3/uL (1-3.4); LYMPHOCYTES % (AUTO) 4 % (22-44); MD SCAN; MONOCYTES # (AUTO) 0.47 x10^3/uL (0.2-0.8); MONOCYTES % (AUTO) 3 % (2-9); NEUTROPHILS % (AUTO) 93 % (42-75)
[2018-07-03 06:43] LABS: ALKALINE PHOSPHATASE 76 U/L (45-117); BILIRUBIN,TOTAL 0.3 mg/dL (0.2-1.0); CREATININE 1.17 mg/dL (0.55-1.02); THYROID STIMULATING HORMONE 0.618 mIU/L (0.358-3.740); TOTAL PROTEIN 5.5 g/dL (6.4-8.2)
[2018-07-03 08:50] VITALS: BP 114/68
[2018-07-03] MEDS ORDERED: CALCIUM CARBONATE 500 MG TAB.CHEW PO SCH (09:00)
[2018-07-03] MEDS: [UNRECOGNIZED DRUG - OTHER] HOMEMEDPO SCH (09:00)
[2018-07-03] MEDS ORDERED: GLUCOSAMINE HCL PO SCH (09:00)
[2018-07-03] MEDS ORDERED: LIOTHYRONINE 5 MCG TABLET PO SCH (09:00)
[2018-07-03] MEDS: LEVOTHYROXINE 50 MCG TABLET PO SCH (10:01)
[2018-07-03] MEDS: BUPROPION SR 150 MG TABLET PO SCH (10:01)
[2018-07-03] MEDS: FLUDROCORTISONE 0.1 MG TABLET PO SCH (10:01)
[2018-07-03] MEDS: ACETAMINOPHEN 325 MG TABLET PO PRN ×2 (10:01→20:39)
[2018-07-03] MEDS: MAGNESIUM OXIDE 400 MG TABLET PO SCH (10:01)
[2018-07-03] MEDS: AMLODIPINE 5 MG TABLET PO SCH ×2 (10:01→20:39)
[2018-07-03] MEDS: MULTIVITAMIN 1 TABLET PO SCH (10:02)
[2018-07-03] MEDS: SERTRALINE 100MG TABLET PO SCH (10:02)
[2018-07-03] MEDS: LIOTHYRONINE 5 MCG TABLET PO SCH (10:03)
[2018-07-03] MEDS: CIPROFLOXACIN 500 MG TABLET PO SCH ×2 (10:04→20:39)
[2018-07-03] MEDS: CHOLECALCIFEROL 1,000 UNIT TABLET PO SCH (10:17)
[2018-07-03] MEDS: CALCIUM CARBONATE 500 MG TAB.CHEW PO PRN (12:49)
[2018-07-03 13:00] VITALS: BP 121/76
[2018-07-03] MEDS: DAPTOMYCIN 420 MG in SODIUM CHLORIDE 0.9% 100 ML IVPB SCH (18:05)
[2018-07-03 20:07] VITALS: BP 128/68
[2018-07-03] MEDS: ENOXAPARIN 40 MG/0.4 ML SQ SCH (20:19)
[2018-07-04 00:43] VITALS: BP 129/75
[2018-07-04 05:59] LABS: BASOPHILS % (AUTO) 0 % (0-1); EOSINOPHILS # (AUTO) 0.06 x10^3/uL (0-0.4); EOSINOPHILS % (AUTO) 1 % (1-7); LYMPHOCYTES # (AUTO) 0.69 x10^3/uL (1-3.4); LYMPHOCYTES % (AUTO) 5 % (22-44); MD NO; MEAN CORPUSCULAR HGB CONC 34.6 g/dL (32.4-35.8); MEAN CORPUSCULAR VOLUME 89.4 fL (80-100); MEAN PLATELET VOLUME 7.8 fL (7.4-10.4); MONOCYTES # (AUTO) 0.59 x10^3/uL (0.2-0.8); MONOCYTES % (AUTO) 5 % (2-9); NEUTROPHILS # (AUTO) 11.75 x10^3/uL (1.8-6.8); NEUTROPHILS % (AUTO) 90 % (42-75); PLATELET COUNT 184 x10^3/uL (130-400); RED BLOOD COUNT 3.42 x10^6/uL (3.82-5.3); RED CELL DISTRIBUTION WIDTH 15.9 % (9.6-15.2)
[2018-07-04 06:01] LABS: ALANINE AMINOTRANSFERASE 46 U/L (12-78); ALBUMIN 2.2 g/dL (3.4-5.0); ANION GAP 6 mmol/L (5-15); CALCIUM 9.4 mg/dL (8.5-10.1); CHLORIDE 117 mmol/L (98-107)
[2018-07-04 06:04] LABS: ALKALINE PHOSPHATASE 74 U/L (45-117); BILIRUBIN,TOTAL 0.3 mg/dL (0.2-1.0); CREATININE 1.12 mg/dL (0.55-1.02); TOTAL PROTEIN 5.2 g/dL (6.4-8.2)
[2018-07-04] MEDS ORDERED: LEVOTHYROXINE 25 MCG TABLET ONE (07:52)
[2018-07-04 08:19] VITALS: BP 133/71
[2018-07-04] MEDS: CIPROFLOXACIN 500 MG TABLET PO SCH ×2 (09:00→20:42)
[2018-07-04] MEDS: AMLODIPINE 5 MG TABLET PO SCH ×2 (09:00→20:42)
[2018-07-04] MEDS: [UNRECOGNIZED DRUG - OTHER] HOMEMEDPO SCH (09:00)
[2018-07-04] MEDS ORDERED: LIDOCAINE-MPF 1%, 5ML ONE ×2 (09:55→10:59)
[2018-07-04] MEDS ORDERED: MIDAZOLAM 1 MG/ML, 5ML ONE ×3 (10:18→10:32)
[2018-07-04] MEDS ORDERED: FENTANYL PF 100 MCG/2ML ONE (10:18)
[2018-07-04] MEDS ORDERED: FLUMAZENIL 0.1 MG/1 ML, 5ML ONE (10:19)
[2018-07-04] MEDS ORDERED: NALOXONE 1 MG/ML, 2ML ONE (10:19)
[2018-07-04 14:00] VITALS: BP 116/71
[2018-07-04] MEDS: CALCIUM CARBONATE 500 MG TAB.CHEW PO PRN (15:20)
[2018-07-04] MEDS: LIOTHYRONINE 5 MCG TABLET PO SCH (15:24)
[2018-07-04] MEDS: FLUDROCORTISONE 0.1 MG TABLET PO SCH (15:24)
[2018-07-04] MEDS: MAGNESIUM OXIDE 400 MG TABLET PO SCH (15:25)
[2018-07-04] MEDS: MULTIVITAMIN 1 TABLET PO SCH (15:25)
[2018-07-04] MEDS: SERTRALINE 100MG TABLET PO SCH (15:26)
[2018-07-04] MEDS: CHOLECALCIFEROL 1,000 UNIT TABLET PO SCH (15:26)
[2018-07-04] MEDS: BUPROPION SR 150 MG TABLET PO SCH (15:26)
[2018-07-04] MEDS: LEVOTHYROXINE 50 MCG TABLET PO SCH (15:26)
[2018-07-04] MEDS: DAPTOMYCIN 420 MG in SODIUM CHLORIDE 0.9% 100 ML IVPB SCH (18:16)
[2018-07-04 20:40] VITALS: BP 108/65
[2018-07-04] MEDS: ENOXAPARIN 40 MG/0.4 ML SQ SCH (20:43)
[2018-07-04] MEDS: ACETAMINOPHEN 325 MG TABLET PO PRN (20:43)
[2018-07-05 04:51] VITALS: BP 120/75
[2018-07-05 05:09] LABS: MEAN CORPUSCULAR HEMOGLOBIN 29.8 pg (27.0-34.8); MEAN CORPUSCULAR HGB CONC 32.8 g/dL (32.4-35.8); MEAN CORPUSCULAR VOLUME 90.6 fL (80-100); MEAN PLATELET VOLUME 8.1 fL (7.4-10.4); PLATELET COUNT 186 x10^3/uL (130-400); RED BLOOD COUNT 3.65 x10^6/uL (3.82-5.3); RED CELL DISTRIBUTION WIDTH 15.8 % (9.6-15.2)
[2018-07-05 05:15] LABS: ALANINE AMINOTRANSFERASE 52 U/L (12-78); ALBUMIN 2.1 g/dL (3.4-5.0); ANION GAP 6 mmol/L (5-15); CALCIUM 9.2 mg/dL (8.5-10.1); CHLORIDE 116 mmol/L (98-107); CREATININE 1.11 mg/dL (0.55-1.02)
[2018-07-05 05:17] LABS: ALKALINE PHOSPHATASE 77 U/L (45-117); BILIRUBIN,TOTAL 0.3 mg/dL (0.2-1.0); TOTAL PROTEIN 5.1 g/dL (6.4-8.2)
[2018-07-05 06:00] LABS: BASOPHILS # (AUTO) 0.02 x10^3/uL (0-0.1); BASOPHILS % (AUTO) 0 % (0-1); EOSINOPHILS # (AUTO) 0.04 x10^3/uL (0-0.4); EOSINOPHILS % (AUTO) 0 % (1-7); LYMPHOCYTES # (AUTO) 0.66 x10^3/uL (1-3.4); LYMPHOCYTES % (AUTO) 5 % (22-44); MD SCAN; MONOCYTES # (AUTO) 0.44 x10^3/uL (0.2-0.8); MONOCYTES % (AUTO) 3 % (2-9); NEUTROPHILS # (AUTO) 12.36 x10^3/uL (1.8-6.8); NEUTROPHILS % (AUTO) 91 % (42-75)
[2018-07-05 08:00] VITALS: BP 132/69
[2018-07-05] MEDS: CALCIUM CARBONATE 500 MG TAB.CHEW PO PRN ×2 (08:06→21:30)
[2018-07-05] MEDS: CHOLECALCIFEROL 1,000 UNIT TABLET PO SCH (08:07)
[2018-07-05] MEDS: FLUDROCORTISONE 0.1 MG TABLET PO SCH (08:07)
[2018-07-05] MEDS: BUPROPION SR 150 MG TABLET PO SCH (08:07)
[2018-07-05] MEDS: SERTRALINE 100MG TABLET PO SCH (08:07)
[2018-07-05] MEDS: MAGNESIUM OXIDE 400 MG TABLET PO SCH (08:08)
[2018-07-05] MEDS: MULTIVITAMIN 1 TABLET PO SCH (08:08)
[2018-07-05] MEDS: CIPROFLOXACIN 500 MG TABLET PO SCH ×2 (08:08→21:31)
[2018-07-05] MEDS: LIOTHYRONINE 5 MCG TABLET PO SCH (08:08)
[2018-07-05] MEDS: [UNRECOGNIZED DRUG - OTHER] HOMEMEDPO SCH (08:08)
[2018-07-05] MEDS: AMLODIPINE 5 MG TABLET PO SCH ×2 (08:08→21:31)
[2018-07-05] MEDS: LEVOTHYROXINE 50 MCG TABLET PO SCH (08:08)
[2018-07-05] MEDS ORDERED: ACETAMINOPHEN 500 MG TABLET ONE ×2 (10:58)
[2018-07-05] MEDS: ACETAMINOPHEN 500 MG TABLET PO PRN ×2 (11:02→21:31)
[2018-07-05] MEDS: MICAFUNGIN 100 MG in SODIUM CHLORIDE 0.9% 100 ML IV SCH (11:03)
[2018-07-05 14:39] VITALS: BP 126/73
[2018-07-05] MEDS: LACTOBACILLUS CHEW TABLET PO SCH ×2 (16:40→21:30)
[2018-07-05] MEDS: DAPTOMYCIN 425 MG in SODIUM CHLORIDE 0.9% 100 ML IVPB SCH (16:41)
[2018-07-05 20:54] VITALS: BP 132/63
[2018-07-05] MEDS: ENOXAPARIN 40 MG/0.4 ML SQ SCH (21:32)
[2018-07-06 01:58] VITALS: BP 119/71
[2018-07-06 05:12] LABS: BASOPHILS % (AUTO) 0 % (0-1); EOSINOPHILS # (AUTO) 0.16 x10^3/uL (0-0.4); EOSINOPHILS % (AUTO) 1 % (1-7); LYMPHOCYTES # (AUTO) 0.63 x10^3/uL (1-3.4); LYMPHOCYTES % (AUTO) 5 % (22-44); MD NO; MEAN CORPUSCULAR HEMOGLOBIN 31.3 pg (27.0-34.8); MEAN CORPUSCULAR HGB CONC 35.1 g/dL (32.4-35.8); MEAN CORPUSCULAR VOLUME 89.2 fL (80-100); MEAN PLATELET VOLUME 7.6 fL (7.4-10.4); MONOCYTES # (AUTO) 0.55 x10^3/uL (0.2-0.8); MONOCYTES % (AUTO) 5 % (2-9); NEUTROPHILS # (AUTO) 10.52 x10^3/uL (1.8-6.8); NEUTROPHILS % (AUTO) 89 % (42-75); PLATELET COUNT 179 x10^3/uL (130-400); RED BLOOD COUNT 3.32 x10^6/uL (3.82-5.3); RED CELL DISTRIBUTION WIDTH 15.9 % (9.6-15.2)
[2018-07-06 05:19] LABS: ANION GAP 6 mmol/L (5-15); CALCIUM 8.8 mg/dL (8.5-10.1); CHLORIDE 117 mmol/L (98-107); CREATININE 1.14 mg/dL (0.55-1.02)
[2018-07-06 07:02] VITALS: BP 142/77
[2018-07-06] MEDS: CALCIUM CARBONATE 500 MG TAB.CHEW PO PRN ×2 (07:55→21:58)
[2018-07-06] MEDS: MULTIVITAMIN 1 TABLET PO SCH (07:57)
[2018-07-06] MEDS: BUPROPION SR 150 MG TABLET PO SCH (07:57)
[2018-07-06] MEDS: FLUDROCORTISONE 0.1 MG TABLET PO SCH (07:57)
[2018-07-06] MEDS: CHOLECALCIFEROL 1,000 UNIT TABLET PO SCH (07:57)
[2018-07-06] MEDS: CIPROFLOXACIN 500 MG TABLET PO SCH ×2 (07:57→21:59)
[2018-07-06] MEDS: AMLODIPINE 5 MG TABLET PO SCH ×2 (07:57→21:59)
[2018-07-06] MEDS: LIOTHYRONINE 5 MCG TABLET PO SCH (07:57)
[2018-07-06] MEDS: LACTOBACILLUS CHEW TABLET PO SCH ×3 (07:57→21:58)
[2018-07-06] MEDS: MAGNESIUM OXIDE 400 MG TABLET PO SCH (07:57)
[2018-07-06] MEDS: SERTRALINE 100MG TABLET PO SCH (07:58)
[2018-07-06] MEDS: LEVOTHYROXINE 50 MCG TABLET PO SCH (07:58)
[2018-07-06] MEDS: [UNRECOGNIZED DRUG - OTHER] HOMEMEDPO SCH (07:58)
[2018-07-06] MEDS: ACETAMINOPHEN 500 MG TABLET PO PRN ×2 (11:36→18:06)
[2018-07-06] MEDS: MICAFUNGIN 100 MG in SODIUM CHLORIDE 0.9% 100 ML IV SCH (11:37)
[2018-07-06 12:07] VITALS: BP 124/75
[2018-07-06] MEDS: DAPTOMYCIN 425 MG in SODIUM CHLORIDE 0.9% 100 ML IVPB SCH (16:34)
[2018-07-06 20:47] VITALS: BP 132/65
[2018-07-06] MEDS: ENOXAPARIN 40 MG/0.4 ML SQ SCH (21:59)
[2018-07-07 00:24] VITALS: BP 130/76
[2018-07-07] MEDS: ACETAMINOPHEN 500 MG TABLET PO PRN ×3 (00:37→20:39)
[2018-07-07 08:07] VITALS: BP 140/88
[2018-07-07] MEDS: CALCIUM CARBONATE 500 MG TAB.CHEW PO PRN ×2 (08:15→20:38)
[2018-07-07] MEDS: LIOTHYRONINE 5 MCG TABLET PO SCH (08:16)
[2018-07-07] MEDS: MAGNESIUM OXIDE 400 MG TABLET PO SCH (08:17)
[2018-07-07] MEDS: SERTRALINE 100MG TABLET PO SCH (08:17)
[2018-07-07] MEDS: CHOLECALCIFEROL 1,000 UNIT TABLET PO SCH (08:17)
[2018-07-07] MEDS: CIPROFLOXACIN 500 MG TABLET PO SCH ×2 (08:17→20:39)
[2018-07-07] MEDS: BUPROPION SR 150 MG TABLET PO SCH (08:17)
[2018-07-07] MEDS: LACTOBACILLUS CHEW TABLET PO SCH ×3 (08:17→20:38)
[2018-07-07] MEDS: AMLODIPINE 5 MG TABLET PO SCH ×2 (08:17→20:38)
[2018-07-07] MEDS: MULTIVITAMIN 1 TABLET PO SCH (08:17)
[2018-07-07] MEDS: FLUDROCORTISONE 0.1 MG TABLET PO SCH (08:17)
[2018-07-07] MEDS: [UNRECOGNIZED DRUG - OTHER] HOMEMEDPO SCH (08:18)
[2018-07-07] MEDS: LEVOTHYROXINE 50 MCG TABLET PO SCH (08:18)
[2018-07-07] MEDS: MICAFUNGIN 100 MG in SODIUM CHLORIDE 0.9% 100 ML IV SCH (11:27)
[2018-07-07 13:39] VITALS: BP 118/68
[2018-07-07] MEDS: DAPTOMYCIN 425 MG in SODIUM CHLORIDE 0.9% 100 ML IVPB SCH (17:03)
[2018-07-07 19:38] VITALS: BP 117/68
[2018-07-07] MEDS: ENOXAPARIN 40 MG/0.4 ML SQ SCH (20:38)
[2018-07-08 01:20] VITALS: BP 118/73
[2018-07-08 05:48] LABS: BASOPHILS % (AUTO) 0 % (0-1); EOSINOPHILS # (AUTO) 0.12 x10^3/uL (0-0.4); EOSINOPHILS % (AUTO) 1 % (1-7); LYMPHOCYTES # (AUTO) 0.69 x10^3/uL (1-3.4); LYMPHOCYTES % (AUTO) 5 % (22-44); MD NO; MEAN CORPUSCULAR HEMOGLOBIN 30.8 pg (27.0-34.8); MEAN CORPUSCULAR HGB CONC 34.7 g/dL (32.4-35.8); MEAN CORPUSCULAR VOLUME 88.8 fL (80-100); MEAN PLATELET VOLUME 7.6 fL (7.4-10.4); MONOCYTES # (AUTO) 0.53 x10^3/uL (0.2-0.8); MONOCYTES % (AUTO) 4 % (2-9); NEUTROPHILS # (AUTO) 12.64 x10^3/uL (1.8-6.8); NEUTROPHILS % (AUTO) 91 % (42-75); PLATELET COUNT 190 x10^3/uL (130-400); RED BLOOD COUNT 3.48 x10^6/uL (3.82-5.3)
[2018-07-08 05:59] LABS: CHLORIDE 115 mmol/L (98-107)
[2018-07-08 06:12] LABS: ALANINE AMINOTRANSFERASE 47 U/L (12-78); ALBUMIN 2.2 g/dL (3.4-5.0); ALKALINE PHOSPHATASE 73 U/L (45-117); ANION GAP 8 mmol/L (5-15); BILIRUBIN,TOTAL 0.2 mg/dL (0.2-1.0); CALCIUM 9.3 mg/dL (8.5-10.1); CREATINE KINASE, TOTAL 21 U/L (26-192); CREATININE 1.13 mg/dL (0.55-1.02)
[2018-07-08 06:45] LABS: HCT (SEDRATE) 29.6 % (34.6-47.8)
[2018-07-08 07:01] VITALS: BP 125/78
[2018-07-08] MEDS: MAGNESIUM OXIDE 400 MG TABLET PO SCH (08:44)
[2018-07-08] MEDS: CHOLECALCIFEROL 1,000 UNIT TABLET PO SCH (08:44)
[2018-07-08] MEDS: AMLODIPINE 5 MG TABLET PO SCH ×2 (08:45→20:15)
[2018-07-08] MEDS: LACTOBACILLUS CHEW TABLET PO SCH ×3 (08:45→20:16)
[2018-07-08] MEDS: MULTIVITAMIN 1 TABLET PO SCH (08:45)
[2018-07-08] MEDS: BUPROPION SR 150 MG TABLET PO SCH (08:45)
[2018-07-08] MEDS: SERTRALINE 100MG TABLET PO SCH (08:45)
[2018-07-08] MEDS: CIPROFLOXACIN 500 MG TABLET PO SCH ×2 (08:46→20:15)
[2018-07-08] MEDS: FLUDROCORTISONE 0.1 MG TABLET PO SCH (08:46)
[2018-07-08] MEDS: LIOTHYRONINE 5 MCG TABLET PO SCH (08:46)
[2018-07-08] MEDS: ACETAMINOPHEN 500 MG TABLET PO PRN ×3 (08:47→20:14)
[2018-07-08] MEDS: CALCIUM CARBONATE 500 MG TAB.CHEW PO PRN ×2 (08:47→20:12)
[2018-07-08] MEDS: LEVOTHYROXINE 50 MCG TABLET PO SCH (08:55)
[2018-07-08] MEDS: [UNRECOGNIZED DRUG - OTHER] HOMEMEDPO SCH (09:00)
[2018-07-08] MEDS: MICAFUNGIN 100 MG in SODIUM CHLORIDE 0.9% 100 ML IV SCH (11:54)
[2018-07-08] MEDS: SODIUM CHLORIDE FLUSH 10ML SYR IVF SCH ×2 (11:54→20:17)
[2018-07-08 13:12] VITALS: BP 139/77
[2018-07-08] MEDS: DAPTOMYCIN 425 MG in SODIUM CHLORIDE 0.9% 100 ML IVPB SCH (16:56)
[2018-07-08] MEDS: ENOXAPARIN 40 MG/0.4 ML SQ SCH (20:16)
[2018-07-08 20:41] VITALS: BP 120/68
[2018-07-09 02:58] VITALS: BP 128/76
[2018-07-09 04:40] LABS: BASOPHILS # (AUTO) 0.04 x10^3/uL (0-0.1); BASOPHILS % (AUTO) 0 % (0-1); EOSINOPHILS # (AUTO) 0.07 x10^3/uL (0-0.4); EOSINOPHILS % (AUTO) 1 % (1-7); LYMPHOCYTES # (AUTO) 0.76 x10^3/uL (1-3.4); LYMPHOCYTES % (AUTO) 6 % (22-44); MD NO; MEAN CORPUSCULAR HEMOGLOBIN 30.3 pg (27.0-34.8); MEAN CORPUSCULAR VOLUME 89.2 fL (80-100); MEAN PLATELET VOLUME 7.7 fL (7.4-10.4); MONOCYTES # (AUTO) 0.46 x10^3/uL (0.2-0.8); MONOCYTES % (AUTO) 3 % (2-9); NEUTROPHILS # (AUTO) 12.02 x10^3/uL (1.8-6.8); NEUTROPHILS % (AUTO) 90 % (42-75); PLATELET COUNT 175 x10^3/uL (130-400); RED CELL DISTRIBUTION WIDTH 15.9 % (9.6-15.2)
[2018-07-09 04:50] LABS: ANION GAP 7 mmol/L (5-15); CALCIUM 8.9 mg/dL (8.5-10.1); CHLORIDE 117 mmol/L (98-107); CREATININE 1.08 mg/dL (0.55-1.02)
[2018-07-09] MEDS: LEVOTHYROXINE 50 MCG TABLET PO SCH ×2 (05:41→07:39)
[2018-07-09 07:02] VITALS: BP 152/90
[2018-07-09] MEDS: CALCIUM CARBONATE 500 MG TAB.CHEW PO PRN ×2 (07:37→22:37)
[2018-07-09] MEDS: MAGNESIUM OXIDE 400 MG TABLET PO SCH (07:38)
[2018-07-09] MEDS: BUPROPION SR 150 MG TABLET PO SCH (07:38)
[2018-07-09] MEDS: AMLODIPINE 5 MG TABLET PO SCH ×2 (07:38→22:38)
[2018-07-09] MEDS: CHOLECALCIFEROL 1,000 UNIT TABLET PO SCH (07:38)
[2018-07-09] MEDS: ACETAMINOPHEN 500 MG TABLET PO PRN ×3 (07:38→22:38)
[2018-07-09] MEDS: MULTIVITAMIN 1 TABLET PO SCH (07:38)
[2018-07-09] MEDS: FLUDROCORTISONE 0.1 MG TABLET PO SCH (07:39)
[2018-07-09] MEDS: LACTOBACILLUS CHEW TABLET PO SCH ×3 (07:39→22:38)
[2018-07-09] MEDS: CIPROFLOXACIN 500 MG TABLET PO SCH ×2 (07:39→22:38)
[2018-07-09] MEDS: LIOTHYRONINE 5 MCG TABLET PO SCH (07:39)
[2018-07-09] MEDS: SERTRALINE 100MG TABLET PO SCH (07:40)
[2018-07-09] MEDS: [UNRECOGNIZED DRUG - OTHER] HOMEMEDPO SCH (07:40)
[2018-07-09] MEDS: SODIUM CHLORIDE FLUSH 10ML SYR IVF SCH ×2 (07:40→22:39)
[2018-07-09] MEDS: MICAFUNGIN 100 MG in SODIUM CHLORIDE 0.9% 100 ML IV SCH (11:30)
[2018-07-09 14:49] VITALS: BP 132/71
[2018-07-09] MEDS: DAPTOMYCIN 425 MG in SODIUM CHLORIDE 0.9% 100 ML IVPB SCH (17:13)
[2018-07-09 20:30] VITALS: BP 120/67
[2018-07-09] MEDS: ENOXAPARIN 40 MG/0.4 ML SQ SCH (22:37)
[2018-07-10 01:11] VITALS: BP 138/76
[2018-07-10] MEDS: LEVOTHYROXINE 50 MCG TABLET PO SCH (06:51)
[2018-07-10 06:56] LABS: MEAN CORPUSCULAR HEMOGLOBIN 30.6 pg (27.0-34.8); MEAN CORPUSCULAR HGB CONC 34.3 g/dL (32.4-35.8); MEAN CORPUSCULAR VOLUME 89.3 fL (80-100); MEAN PLATELET VOLUME 7.3 fL (7.4-10.4); PLATELET COUNT 182 x10^3/uL (130-400); RED BLOOD COUNT 3.49 x10^6/uL (3.82-5.3); RED CELL DISTRIBUTION WIDTH 15.9 % (9.6-15.2)
[2018-07-10 07:06] LABS: ANION GAP 8 mmol/L (5-15); CALCIUM 9.2 mg/dL (8.5-10.1); CHLORIDE 116 mmol/L (98-107); CREATININE 1.09 mg/dL (0.55-1.02)
[2018-07-10 08:02] LABS: MD YES
[2018-07-10 08:04] LABS: BAND#(MANUAL) 0.41 x10^3/uL; BANDS%(MANUAL) 3 % (0-7); LYMPH#(MANUAL) 0.68 x10^3/uL (1-3.4); LYMPHS% (MANUAL) 5 % (22-44); METAMYELOCYTES# (MANUAL) 0.27 x10^3/uL (0-0); METAMYELOCYTES% (MANUAL) 2 % (0-1); MONOS#(MANUAL) 0.41 x10^3/uL (0.3-2.7); MONOS% (MANUAL) 3 % (2-9); MYELOCYTES# (MANUAL) 0.14 x10^3/uL (0-0); MYELOCYTES% (MANUAL) 1 % (0-0); NRBC % (MANUAL) 1 % (0-1); SEGS% (MANUAL) 86 % (42-75)
[2018-07-10 08:05] LABS: <PLATELET ESTIMATE> ADEQUATE; <PLT MORPHOLOGY> NORMAL PLT MORPH; OVALOCYTES 1+; POLYCHROMASIA 1+
[2018-07-10] MEDS: [UNRECOGNIZED DRUG - OTHER] HOMEMEDPO SCH (09:00)
[2018-07-10 09:28] VITALS: BP 123/71
[2018-07-10] MEDS: CALCIUM CARBONATE 500 MG TAB.CHEW PO PRN ×2 (09:37→21:44)
[2018-07-10] MEDS: CHOLECALCIFEROL 1,000 UNIT TABLET PO SCH (09:38)
[2018-07-10] MEDS: MULTIVITAMIN 1 TABLET PO SCH (09:38)
[2018-07-10] MEDS: SERTRALINE 100MG TABLET PO SCH (09:38)
[2018-07-10] MEDS: MAGNESIUM OXIDE 400 MG TABLET PO SCH (09:38)
[2018-07-10] MEDS: BUPROPION SR 150 MG TABLET PO SCH (09:38)
[2018-07-10] MEDS: FLUDROCORTISONE 0.1 MG TABLET PO SCH (09:38)
[2018-07-10] MEDS: CIPROFLOXACIN 500 MG TABLET PO SCH ×2 (09:39→21:43)
[2018-07-10] MEDS: SODIUM CHLORIDE FLUSH 10ML SYR IVF SCH ×2 (09:39→21:45)
[2018-07-10] MEDS: LACTOBACILLUS CHEW TABLET PO SCH ×3 (09:39→21:43)
[2018-07-10] MEDS: AMLODIPINE 5 MG TABLET PO SCH ×2 (09:39→21:45)
[2018-07-10] MEDS: LIOTHYRONINE 5 MCG TABLET PO SCH (09:39)
[2018-07-10] MEDS: ACETAMINOPHEN 500 MG TABLET PO PRN ×2 (09:39→21:42)
[2018-07-10] MEDS: MICAFUNGIN 100 MG in SODIUM CHLORIDE 0.9% 100 ML IV SCH (11:40)
[2018-07-10 13:13] VITALS: BP 123/74
[2018-07-10] MEDS: DAPTOMYCIN 425 MG in SODIUM CHLORIDE 0.9% 100 ML IVPB SCH (17:27)
[2018-07-10 19:02] VITALS: BP 129/69
[2018-07-10] MEDS: ENOXAPARIN 40 MG/0.4 ML SQ SCH (21:45)
[2018-07-11 03:00] VITALS: BP 127/76
[2018-07-11 05:55] LABS: BASOPHILS % (AUTO) 0 % (0-1); EOSINOPHILS # (AUTO) 0.05 x10^3/uL (0-0.4); EOSINOPHILS % (AUTO) 1 % (1-7); LYMPHOCYTES # (AUTO) 0.59 x10^3/uL (1-3.4); LYMPHOCYTES % (AUTO) 5 % (22-44); MD NO; MEAN CORPUSCULAR HEMOGLOBIN 29.9 pg (27.0-34.8); MEAN CORPUSCULAR HGB CONC 33.5 g/dL (32.4-35.8); MEAN CORPUSCULAR VOLUME 89.1 fL (80-100); MEAN PLATELET VOLUME 7.8 fL (7.4-10.4); MONOCYTES # (AUTO) 0.41 x10^3/uL (0.2-0.8); MONOCYTES % (AUTO) 4 % (2-9); NEUTROPHILS # (AUTO) 10.43 x10^3/uL (1.8-6.8); NEUTROPHILS % (AUTO) 91 % (42-75); PLATELET COUNT 181 x10^3/uL (130-400); RED BLOOD COUNT 3.67 x10^6/uL (3.82-5.3); RED CELL DISTRIBUTION WIDTH 15.7 % (9.6-15.2)
[2018-07-11] MEDS: LEVOTHYROXINE 50 MCG TABLET PO SCH (05:55)
[2018-07-11] MEDS: ACETAMINOPHEN 500 MG TABLET PO PRN ×2 (05:55→20:58)
[2018-07-11 06:03] LABS: ANION GAP 9 mmol/L (5-15); CALCIUM 9.2 mg/dL (8.5-10.1); CHLORIDE 116 mmol/L (98-107)
[2018-07-11 06:05] LABS: CREATININE 1.24 mg/dL (0.55-1.02)
[2018-07-11] MEDS: [UNRECOGNIZED DRUG - OTHER] HOMEMEDPO SCH (08:13)
[2018-07-11 08:50] VITALS: BP 133/84
[2018-07-11] MEDS: SODIUM CHLORIDE FLUSH 10ML SYR IVF SCH ×2 (09:00→21:01)
[2018-07-11] MEDS: AMLODIPINE 5 MG TABLET PO SCH ×2 (09:16→21:00)
[2018-07-11] MEDS: LACTOBACILLUS CHEW TABLET PO SCH ×3 (09:16→20:59)
[2018-07-11] MEDS: BUPROPION SR 150 MG TABLET PO SCH (09:17)
[2018-07-11] MEDS: SERTRALINE 100MG TABLET PO SCH (09:17)
[2018-07-11] MEDS: MULTIVITAMIN 1 TABLET PO SCH (09:17)
[2018-07-11] MEDS: CIPROFLOXACIN 500 MG TABLET PO SCH ×2 (09:17→20:59)
[2018-07-11] MEDS: CHOLECALCIFEROL 1,000 UNIT TABLET PO SCH (09:17)
[2018-07-11] MEDS: MAGNESIUM OXIDE 400 MG TABLET PO SCH (09:18)
[2018-07-11] MEDS: LIOTHYRONINE 5 MCG TABLET PO SCH (09:23)
[2018-07-11] MEDS: FLUDROCORTISONE 0.1 MG TABLET PO SCH (09:23)
[2018-07-11] MEDS: CALCIUM CARBONATE 500 MG TAB.CHEW PO PRN ×2 (09:34→20:59)
[2018-07-11] MEDS: MICAFUNGIN 100 MG in SODIUM CHLORIDE 0.9% 100 ML IV SCH (12:30)
[2018-07-11 15:09] VITALS: BP 133/72
[2018-07-11 18:49] VITALS: BP_SYST 121; BP_DIAS 7; BP_DIAS 76
[2018-07-11] MEDS: DAPTOMYCIN 425 MG in SODIUM CHLORIDE 0.9% 100 ML IVPB SCH (20:58)
[2018-07-11] MEDS: ENOXAPARIN 40 MG/0.4 ML SQ SCH (20:59)
[2018-07-12 00:44] VITALS: BP 125/75
[2018-07-12] MEDS: ACETAMINOPHEN 500 MG TABLET PO PRN ×2 (06:03→20:58)
[2018-07-12] MEDS: LEVOTHYROXINE 50 MCG TABLET PO SCH (06:03)
[2018-07-12 06:33] LABS: BASOPHILS # (AUTO) 0.01 x10^3/uL (0-0.1); BASOPHILS % (AUTO) 0 % (0-1); EOSINOPHILS # (AUTO) 0.02 x10^3/uL (0-0.4); EOSINOPHILS % (AUTO) 0 % (1-7); LYMPHOCYTES # (AUTO) 0.68 x10^3/uL (1-3.4); LYMPHOCYTES % (AUTO) 5 % (22-44); MD NO; MEAN CORPUSCULAR HEMOGLOBIN 30.6 pg (27.0-34.8); MEAN CORPUSCULAR HGB CONC 34.2 g/dL (32.4-35.8); MEAN CORPUSCULAR VOLUME 89.5 fL (80-100); MEAN PLATELET VOLUME 7.8 fL (7.4-10.4); MONOCYTES # (AUTO) 0.42 x10^3/uL (0.2-0.8); MONOCYTES % (AUTO) 3 % (2-9); NEUTROPHILS # (AUTO) 12.22 x10^3/uL (1.8-6.8); NEUTROPHILS % (AUTO) 92 % (42-75); PLATELET COUNT 176 x10^3/uL (130-400); RED BLOOD COUNT 3.62 x10^6/uL (3.82-5.3); RED CELL DISTRIBUTION WIDTH 15.9 % (9.6-15.2)
[2018-07-12 06:39] LABS: ALANINE AMINOTRANSFERASE 44 U/L (12-78); ALBUMIN 2.3 g/dL (3.4-5.0); ANION GAP 7 mmol/L (5-15); CALCIUM 9.6 mg/dL (8.5-10.1); CHLORIDE 116 mmol/L (98-107)
[2018-07-12 06:42] LABS: ALKALINE PHOSPHATASE 69 U/L (45-117); BILIRUBIN,TOTAL 0.3 mg/dL (0.2-1.0); TOTAL PROTEIN 5.1 g/dL (6.4-8.2)
[2018-07-12] MEDS: [UNRECOGNIZED DRUG - OTHER] HOMEMEDPO SCH (09:00)
[2018-07-12] MEDS: MAGNESIUM OXIDE 400 MG TABLET PO SCH (09:00)
[2018-07-12 09:29] VITALS: BP 113/67
[2018-07-12] MEDS: LACTOBACILLUS CHEW TABLET PO SCH ×3 (09:39→20:57)
[2018-07-12] MEDS: MULTIVITAMIN 1 TABLET PO SCH (09:39)
[2018-07-12] MEDS: FLUDROCORTISONE 0.1 MG TABLET PO SCH (09:39)
[2018-07-12] MEDS: AMLODIPINE 5 MG TABLET PO SCH ×2 (09:39→20:58)
[2018-07-12] MEDS: SERTRALINE 100MG TABLET PO SCH (09:39)
[2018-07-12] MEDS: BUPROPION SR 150 MG TABLET PO SCH (09:39)
[2018-07-12] MEDS: CHOLECALCIFEROL 1,000 UNIT TABLET PO SCH (09:39)
[2018-07-12] MEDS: LIOTHYRONINE 5 MCG TABLET PO SCH (09:40)
[2018-07-12] MEDS: CIPROFLOXACIN 500 MG TABLET PO SCH ×2 (09:40→20:58)
[2018-07-12] MEDS: SODIUM CHLORIDE FLUSH 10ML SYR IVF SCH ×2 (09:41→20:58)
[2018-07-12] MEDS: CALCIUM CARBONATE 500 MG TAB.CHEW PO PRN ×2 (09:44→20:57)
[2018-07-12] MEDS: MICAFUNGIN 100 MG in SODIUM CHLORIDE 0.9% 100 ML IV SCH (11:15)
[2018-07-12 14:47] VITALS: BP 128/74
[2018-07-12] MEDS: DAPTOMYCIN 425 MG in SODIUM CHLORIDE 0.9% 100 ML IVPB SCH (16:51)
[2018-07-12 19:46] VITALS: BP 115/66
[2018-07-12] MEDS: ENOXAPARIN 40 MG/0.4 ML SQ SCH (21:00)
[2018-07-13 03:12] VITALS: BP 119/70
[2018-07-13] MEDS: LEVOTHYROXINE 50 MCG TABLET PO SCH (06:00)
[2018-07-13 06:16] LABS: BASOPHILS % (AUTO) 0 % (0-1); EOSINOPHILS # (AUTO) 0.05 x10^3/uL (0-0.4); EOSINOPHILS % (AUTO) 0 % (1-7); LYMPHOCYTES # (AUTO) 0.52 x10^3/uL (1-3.4); LYMPHOCYTES % (AUTO) 5 % (22-44); MD NO; MEAN CORPUSCULAR HEMOGLOBIN 30.4 pg (27.0-34.8); MEAN CORPUSCULAR HGB CONC 33.5 g/dL (32.4-35.8); MEAN CORPUSCULAR VOLUME 90.7 fL (80-100); MEAN PLATELET VOLUME 7.7 fL (7.4-10.4); MONOCYTES % (AUTO) 4 % (2-9); NEUTROPHILS # (AUTO) 10.35 x10^3/uL (1.8-6.8); NEUTROPHILS % (AUTO) 91 % (42-75); PLATELET COUNT 166 x10^3/uL (130-400); RED BLOOD COUNT 3.36 x10^6/uL (3.82-5.3); RED CELL DISTRIBUTION WIDTH 15.5 % (9.6-15.2)
[2018-07-13 07:08] LABS: ANION GAP 6 mmol/L (5-15); CALCIUM 8.9 mg/dL (8.5-10.1); CHLORIDE 116 mmol/L (98-107); CREATININE 1.08 mg/dL (0.55-1.02)
[2018-07-13] MEDS ORDERED: LEVOTHYROXINE 25 MCG TABLET ONE (07:20)
[2018-07-13 07:50] VITALS: BP 118/69
[2018-07-13] MEDS: CALCIUM CARBONATE 500 MG TAB.CHEW PO PRN ×2 (09:18→20:44)
[2018-07-13] MEDS: MAGNESIUM OXIDE 400 MG TABLET PO SCH (09:18)
[2018-07-13] MEDS: CIPROFLOXACIN 500 MG TABLET PO SCH ×2 (09:19→20:45)
[2018-07-13] MEDS: MULTIVITAMIN 1 TABLET PO SCH (09:19)
[2018-07-13] MEDS: CHOLECALCIFEROL 1,000 UNIT TABLET PO SCH (09:19)
[2018-07-13] MEDS: LACTOBACILLUS CHEW TABLET PO SCH ×3 (09:20→20:44)
[2018-07-13] MEDS: FLUDROCORTISONE 0.1 MG TABLET PO SCH (09:20)
[2018-07-13] MEDS: LIOTHYRONINE 5 MCG TABLET PO SCH (09:20)
[2018-07-13] MEDS: AMLODIPINE 5 MG TABLET PO SCH ×2 (09:20→20:44)
[2018-07-13] MEDS: BUPROPION SR 150 MG TABLET PO SCH (09:21)
[2018-07-13] MEDS: SERTRALINE 100MG TABLET PO SCH (09:21)
[2018-07-13] MEDS: SODIUM CHLORIDE FLUSH 10ML SYR IVF SCH ×2 (09:32→20:45)
[2018-07-13] MEDS: [UNRECOGNIZED DRUG - OTHER] HOMEMEDPO SCH (09:34)
[2018-07-13] MEDS: MICAFUNGIN 100 MG in SODIUM CHLORIDE 0.9% 100 ML IV SCH (11:30)
[2018-07-13 13:45] VITALS: BP 114/86
[2018-07-13] MEDS: DAPTOMYCIN 425 MG in SODIUM CHLORIDE 0.9% 100 ML IVPB SCH (17:21)
[2018-07-13 18:28] VITALS: BP 124/74
[2018-07-13] MEDS: ACETAMINOPHEN 500 MG TABLET PO PRN (20:45)
[2018-07-13] MEDS: ENOXAPARIN 40 MG/0.4 ML SQ SCH (20:55)
[2018-07-14 03:11] VITALS: BP 145/76
[2018-07-14] MEDS: LEVOTHYROXINE 50 MCG TABLET PO SCH (05:39)
[2018-07-14 06:45] VITALS: BP 122/73
[2018-07-14] MEDS: [UNRECOGNIZED DRUG - OTHER] HOMEMEDPO SCH (07:36)
[2018-07-14] MEDS: CIPROFLOXACIN 500 MG TABLET PO SCH ×2 (07:36→21:42)
[2018-07-14] MEDS: SODIUM CHLORIDE FLUSH 10ML SYR IVF SCH ×2 (07:36→21:43)
[2018-07-14] MEDS: FLUDROCORTISONE 0.1 MG TABLET PO SCH (07:37)
[2018-07-14] MEDS: LIOTHYRONINE 5 MCG TABLET PO SCH (07:37)
[2018-07-14] MEDS: CHOLECALCIFEROL 1,000 UNIT TABLET PO SCH (07:37)
[2018-07-14] MEDS: MAGNESIUM OXIDE 400 MG TABLET PO SCH (07:37)
[2018-07-14] MEDS: LACTOBACILLUS CHEW TABLET PO SCH ×3 (07:37→21:42)
[2018-07-14] MEDS: AMLODIPINE 5 MG TABLET PO SCH ×2 (07:37→21:42)
[2018-07-14] MEDS: MULTIVITAMIN 1 TABLET PO SCH (07:37)
[2018-07-14] MEDS: SERTRALINE 100MG TABLET PO SCH (07:38)
[2018-07-14] MEDS: BUPROPION SR 150 MG TABLET PO SCH (07:38)
[2018-07-14] MEDS: MICAFUNGIN 100 MG in SODIUM CHLORIDE 0.9% 100 ML IV SCH (10:56)
[2018-07-14] MEDS ORDERED: MIDAZOLAM 1 MG/ML, 5ML ONE (12:16)
[2018-07-14] MEDS ORDERED: FENTANYL PF 100 MCG/2ML ONE (12:16)
[2018-07-14] MEDS ORDERED: LIDOCAINE-MPF 1%, 5ML ONE (12:18)
[2018-07-14] MEDS ORDERED: VISIPAQUE 270 MG/ML, 50ML BOTTLE ONE (13:19)
[2018-07-14 13:45] VITALS: BP 130/73
[2018-07-14] MEDS: ACETAMINOPHEN 500 MG TABLET PO PRN ×2 (15:00→21:43)
[2018-07-14] MEDS: DAPTOMYCIN 425 MG in SODIUM CHLORIDE 0.9% 100 ML IVPB SCH (17:27)
[2018-07-14] MEDS: CALCIUM CARBONATE 500 MG TAB.CHEW PO PRN (20:39)
[2018-07-14 21:20] VITALS: BP 120/73
[2018-07-14] MEDS: ENOXAPARIN 40 MG/0.4 ML SQ SCH (21:42)
[2018-07-15 04:34] VITALS: BP 108/67
[2018-07-15 04:53] LABS: HCT (SEDRATE) 33.6 % (34.6-47.8)
[2018-07-15 04:58] LABS: BASOPHILS % (AUTO) 0 % (0-1); EOSINOPHILS # (AUTO) 0.11 x10^3/uL (0-0.4); EOSINOPHILS % (AUTO) 1 % (1-7); LYMPHOCYTES # (AUTO) 0.52 x10^3/uL (1-3.4); LYMPHOCYTES % (AUTO) 4 % (22-44); MD NO; MEAN CORPUSCULAR HEMOGLOBIN 30.3 pg (27.0-34.8); MEAN CORPUSCULAR HGB CONC 33.8 g/dL (32.4-35.8); MEAN CORPUSCULAR VOLUME 89.6 fL (80-100); MEAN PLATELET VOLUME 7.8 fL (7.4-10.4); MONOCYTES # (AUTO) 0.46 x10^3/uL (0.2-0.8); MONOCYTES % (AUTO) 3 % (2-9); NEUTROPHILS # (AUTO) 13.16 x10^3/uL (1.8-6.8); NEUTROPHILS % (AUTO) 92 % (42-75); PLATELET COUNT 176 x10^3/uL (130-400); RED BLOOD COUNT 3.74 x10^6/uL (3.82-5.3); RED CELL DISTRIBUTION WIDTH 15.8 % (9.6-15.2)
[2018-07-15 05:05] LABS: ALBUMIN 2.2 g/dL (3.4-5.0); ANION GAP 8 mmol/L (5-15); CALCIUM 9.1 mg/dL (8.5-10.1); CHLORIDE 116 mmol/L (98-107)
[2018-07-15 05:16] LABS: ALANINE AMINOTRANSFERASE 57 U/L (12-78); ALKALINE PHOSPHATASE 67 U/L (45-117); BILIRUBIN,TOTAL 0.3 mg/dL (0.2-1.0); CREATINE KINASE, TOTAL 22 U/L (26-192); CREATININE 1.27 mg/dL (0.55-1.02); TOTAL PROTEIN 4.7 g/dL (6.4-8.2)
[2018-07-15] MEDS: LEVOTHYROXINE 50 MCG TABLET PO SCH (06:01)
[2018-07-15 06:37] VITALS: BP 113/78
[2018-07-15] MEDS: LIOTHYRONINE 5 MCG TABLET PO SCH (08:16)
[2018-07-15] MEDS: FLUDROCORTISONE 0.1 MG TABLET PO SCH (08:16)
[2018-07-15] MEDS: SERTRALINE 100MG TABLET PO SCH (08:17)
[2018-07-15] MEDS: MULTIVITAMIN 1 TABLET PO SCH (08:17)
[2018-07-15] MEDS: BUPROPION SR 150 MG TABLET PO SCH (08:17)
[2018-07-15] MEDS: CHOLECALCIFEROL 1,000 UNIT TABLET PO SCH (08:17)
[2018-07-15] MEDS: LACTOBACILLUS CHEW TABLET PO SCH ×3 (08:17→21:28)
[2018-07-15] MEDS: MAGNESIUM OXIDE 400 MG TABLET PO SCH (08:18)
[2018-07-15] MEDS: SODIUM CHLORIDE FLUSH 10ML SYR IVF SCH ×2 (08:18→21:32)
[2018-07-15] MEDS: CIPROFLOXACIN 500 MG TABLET PO SCH ×2 (08:18→21:28)
[2018-07-15] MEDS: AMLODIPINE 5 MG TABLET PO SCH ×2 (08:18→21:29)
[2018-07-15] MEDS: [UNRECOGNIZED DRUG - OTHER] HOMEMEDPO SCH (09:00)
[2018-07-15] MEDS: MICAFUNGIN 100 MG in SODIUM CHLORIDE 0.9% 100 ML IV SCH (11:09)
[2018-07-15] MEDS: ACETAMINOPHEN 500 MG TABLET PO PRN ×2 (11:48→21:29)
[2018-07-15 12:04] VITALS: BP 122/75
[2018-07-15] MEDS: DAPTOMYCIN 425 MG in SODIUM CHLORIDE 0.9% 100 ML IVPB SCH (13:35)
[2018-07-15] MEDS: CALCIUM CARBONATE 500 MG TAB.CHEW PO PRN (20:52)
[2018-07-15 21:13] VITALS: BP 108/66
[2018-07-15] MEDS: ENOXAPARIN 40 MG/0.4 ML SQ SCH (21:28)
[2018-07-16 04:08] VITALS: BP 118/73
[2018-07-16] MEDS: LEVOTHYROXINE 50 MCG TABLET PO SCH (06:00)
[2018-07-16 06:53] LABS: BASOPHILS % (AUTO) 0 % (0-1); EOSINOPHILS # (AUTO) 0.03 x10^3/uL (0-0.4); EOSINOPHILS % (AUTO) 0 % (1-7); LYMPHOCYTES # (AUTO) 0.39 x10^3/uL (1-3.4); LYMPHOCYTES % (AUTO) 4 % (22-44); MD NO; MEAN CORPUSCULAR HEMOGLOBIN 30.6 pg (27.0-34.8); MEAN CORPUSCULAR HGB CONC 34.1 g/dL (32.4-35.8); MEAN CORPUSCULAR VOLUME 89.7 fL (80-100); MEAN PLATELET VOLUME 7.9 fL (7.4-10.4); MONOCYTES # (AUTO) 0.43 x10^3/uL (0.2-0.8); MONOCYTES % (AUTO) 4 % (2-9); NEUTROPHILS # (AUTO) 9.24 x10^3/uL (1.8-6.8); NEUTROPHILS % (AUTO) 92 % (42-75); PLATELET COUNT 168 x10^3/uL (130-400); RED BLOOD COUNT 3.51 x10^6/uL (3.82-5.3); RED CELL DISTRIBUTION WIDTH 15.5 % (9.6-15.2)
[2018-07-16] MEDS: [UNRECOGNIZED DRUG - OTHER] HOMEMEDPO SCH (09:00)
[2018-07-16] MEDS: LACTOBACILLUS CHEW TABLET PO SCH (09:34)
[2018-07-16] MEDS: FLUDROCORTISONE 0.1 MG TABLET PO SCH (09:35)
[2018-07-16] MEDS: MULTIVITAMIN 1 TABLET PO SCH (09:35)
[2018-07-16] MEDS: SERTRALINE 100MG TABLET PO SCH (09:35)
[2018-07-16] MEDS: AMLODIPINE 5 MG TABLET PO SCH (09:35)
[2018-07-16] MEDS: CIPROFLOXACIN 500 MG TABLET PO SCH (09:36)
[2018-07-16] MEDS: CHOLECALCIFEROL 1,000 UNIT TABLET PO SCH (09:36)
[2018-07-16] MEDS: LIOTHYRONINE 5 MCG TABLET PO SCH (09:36)
[2018-07-16] MEDS: BUPROPION SR 150 MG TABLET PO SCH (09:36)
[2018-07-16] MEDS: MAGNESIUM OXIDE 400 MG TABLET PO SCH (09:36)
[2018-07-16] MEDS: SODIUM CHLORIDE FLUSH 10ML SYR IVF SCH (09:40)
[2018-07-16 09:45] VITALS: BP 140/77
[2018-07-16] MEDS: MICAFUNGIN 100 MG in SODIUM CHLORIDE 0.9% 100 ML IV SCH (11:07)
[2018-07-16] MEDS: DAPTOMYCIN 425 MG in SODIUM CHLORIDE 0.9% 100 ML IVPB SCH (13:08)
[2018-07-16 14:15] VITALS: BP 135/74
[2018-07-16] MEDS ORDERED: ACID1TAB7 PO (16:01)
[2018-07-16] MEDS ORDERED: CIPR500T87 PO (16:01)
== END 2018-07-16 17:59 | disposition home health service (06) | DRG 862 ==
LOC: 4NOR 18:39
PROVIDERS: ADMIT Internal Medicine; ATTEND Internal Medicine
PROC: 0W9G30Z Drainage of Peritoneal Cavity with Drainage Device, Percutaneous Approach (ICD-10-PCS; principal; 2018-07-04)
PROC: 0W2GX0Z Change Drainage Device in Peritoneal Cavity, External Approach (ICD-10-PCS; 2018-07-14)
DX: T81.42XA Infection following a procedure, deep incisional surgical site, initial encounter (principal); I71.00 Dissection of unspecified site of aorta; K65.1 Peritoneal abscess; L02.211 Cutaneous abscess of abdominal wall; N18.4 Chronic kidney disease, stage 4 (severe); K86.3 Pseudocyst of pancreas; B37.89 Other sites of candidiasis; C64.1 Malignant neoplasm of right kidney, except renal pelvis; C79.70 Secondary malignant neoplasm of unspecified adrenal gland; E89.6 Postprocedural adrenocortical (-medullary) hypofunction; T81.32XA Disruption of internal operation (surgical) wound, not elsewhere classified, initial encounter; L03.311 Cellulitis of abdominal wall; K63.2 Fistula of intestine; E03.9 Hypothyroidism, unspecified; E88.09 Other disorders of plasma-protein metabolism, not elsewhere classified; E11.22 Type 2 diabetes mellitus with diabetic chronic kidney disease; D63.8 Anemia in other chronic diseases classified elsewhere; I12.9 Hypertensive chronic kidney disease with stage 1 through stage 4 chronic kidney disease, or unspecified chronic kidney disease; E11.21 Type 2 diabetes mellitus with diabetic nephropathy; Y82.8 Other medical devices associated with adverse incidents; F32.9 Major depressive disorder, single episode, unspecified; Z90.13 Acquired absence of bilateral breasts and nipples; Z85.3 Personal history of malignant neoplasm of breast; Z85.528 Personal history of other malignant neoplasm of kidney; Z90.5 Acquired absence of kidney; Z86.14 Personal history of Methicillin resistant Staphylococcus aureus infection; Y92.89 Other specified places as the place of occurrence of the external cause; Z78.9 Other specified health status; Z86.73 Personal history of transient ischemic attack (TIA), and cerebral infarction without residual deficits; Z87.01 Personal history of pneumonia (recurrent); Z90.49 Acquired absence of other specified parts of digestive tract; Z93.3 Colostomy status; Z91.011 Allergy to milk products; Z88.8 Allergy status to other drugs, medicaments and biological substances; Z91.018 Allergy to other foods
CPT/HCPCS: 36415; 49405; 49406; 49423; 71045; 74176; 75984; 76705; 80048; 80053; 82150; 82550; 82962; 83690; 84443; 85025; 85651; 86140; 87070; 87075; 87077; 87102; 87106; 87186; 87205; 99156; 99157; C1894; G0378; J0878; J1650; J2248; J2250; J3010; Q9966; C1729; C1769; J2310; J7512

== ENCOUNTER → 2018-07-31 | Outpatient (CLI) | payer MEDICARE, OTHER ==
[~2018-07-31] MED LIST changes: +ACID1TAB7 PO; +CIPR500T87 PO
== END | disposition home or self-care (01) ==
LOC: CFH 13:13
PROVIDERS: ATTEND Internal Medicine Infectious Disease
DX: K57.30 Diverticulosis of large intestine without perforation or abscess without bleeding (principal); M47.817 Spondylosis without myelopathy or radiculopathy, lumbosacral region; M12.88 Other specific arthropathies, not elsewhere classified, other specified site; L02.211 Cutaneous abscess of abdominal wall
CPT/HCPCS: 74176

== ENCOUNTER → 2018-08-20 | Outpatient (CLI) | payer MEDICARE, OTHER ==
[~2018-08-20] MED LIST changes: +ACET-1600 PO
== END | disposition home or self-care (01) ==
LOC: CFH 08:18
PROVIDERS: ATTEND Internal Medicine Infectious Disease
DX: L02.211 Cutaneous abscess of abdominal wall (principal); N20.0 Calculus of kidney; M47.816 Spondylosis without myelopathy or radiculopathy, lumbar region; Z93.2 Ileostomy status
CPT/HCPCS: 74176

== ENCOUNTER → 2018-09-23 | Outpatient (CLI) | payer MEDICARE, OTHER ==
[~2018-09-23] MED LIST changes: +DAPT500V6 IV; +ERTA1VIA4 IV; +OMNIPAQUE 350 MG/ML, 100ML BOTTLE ONE; +PANT20TA3 PO; +VORI50TA PO
== END | disposition home or self-care (01) ==
LOC: RAD 11:04
PROVIDERS: ATTEND Internal Medicine Infectious Disease
DX: K86.2 Cyst of pancreas (principal); N28.1 Cyst of kidney, acquired; J90 Pleural effusion, not elsewhere classified; Z90.49 Acquired absence of other specified parts of digestive tract; Z90.5 Acquired absence of kidney
CPT/HCPCS: 74178; Q9967

== ENCOUNTER 2018-10-30 09:26 | Day surgery (SDC) | payer MEDICARE, OTHER ==
[~2018-10-30 09:26] MED LIST changes: -OMNIPAQUE 350 MG/ML, 100ML BOTTLE ONE
[2018-10-30] MEDS ORDERED: LIDOCAINE-MPF 1%, 5ML ONE (09:45)
== END 2018-10-30 23:59 | disposition home or self-care (01) ==
LOC: RAD 09:26
PROVIDERS: ATTEND Internal Medicine Infectious Disease
DX: Z45.2 Encounter for adjustment and management of vascular access device (principal); Z79.2 Long term (current) use of antibiotics
CPT/HCPCS: 36589; 77001